=== PATIENT | female | born 2000 | race Caucasian/White ===

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

== ENCOUNTER → 2022-01-08 11:30 | Outpatient (CLI) | payer BC, OTHER, SELFPAY ==
[2022-01-08 14:05] LABS: HCG,Quantitative 1322 mIU/ml (0-5.42)
== END ==
PROVIDERS: Visit Provider Obstetrics & Gynecology
DX: N92.6 Irregular menstruation, unspecified (principal); Z32.00 Encounter for pregnancy test, result unknown
CPT/HCPCS: 36415; 84702

== ENCOUNTER → 2022-01-22 17:02 | Outpatient (CLI) | payer BC, OTHER, SELFPAY ==
[2022-01-25 05:18] LABS: Neisseria gonorrhoeae, NAA Negative (Negative)
== END ==
PROVIDERS: Visit Provider Obstetrics & Gynecology
DX: Z34.90 Encounter for supervision of normal pregnancy, unspecified, unspecified trimester (principal)
CPT/HCPCS: 87086; 87491; 87591

== ENCOUNTER → 2022-01-30 15:05 | Outpatient (CLI) | payer BC, OTHER, SELFPAY ==
[2022-01-30 16:35] LABS: Basophils % 0.4 % (0.1-2.0); Eosinophils % 0.3 % (0.1-12.0); Hematocrit 35.1 % (37.0-47.0); Hemoglobin 10.8 g/dL (12.2-16.2); Lymphocytes # 1.9 K/mm3 (0.7-4.5); Lymphocytes % 19.1 % (10-50); Mean Corpuscular HGB Conc 30.8 g/dL (31.8-35.4); Mean Corpuscular Hemoglobin 24.9 pg (27.0-31.2); Mean Corpuscular Volume 80.7 fl (81-99); Mean Platelet Volume 7.9 fl (7.4-10.4); Monocytes # 0.6 K/mm3 (0.1-1.0); Monocytes % 6.4 % (1.7-9.3); Neutrophils # 7.2 K/mm3 (1.8-7.8); Neutrophils % 73.8 % (37.0-80.0); Platelet Count 419 K/mm3 (142-424); Red Blood Count 4.34 M/mm3 (4.20-5.40); White Blood Count 9.8 K/mm3 (4.5-13.0)
[2022-02-01 10:13] LABS: HIV Screen 4th Generation wRfx Non Reactive (Non Reactive); Rapid Plasma Reagin Ab Titer Non Reactive (NonRea<1:1); Rubella Antibodies, IgG 1.98 index (Immune >0.99)
[2022-02-11 21:19] LABS: Hepatitis B Surface Antigen NEGATIVE; Hepatitis C Antibody <0.1
== END ==
PROVIDERS: PCP Internal Medicine Adolescent Medicine; Visit Provider Obstetrics & Gynecology
DX: Z34.90 Encounter for supervision of normal pregnancy, unspecified, unspecified trimester (principal)
CPT/HCPCS: 36415; 85025; 86593; 86703; 86762; 86850; 87340; 87380; G0432

== ENCOUNTER 2022-02-27 17:47 | Emergency (ER) | payer BC, OTHER, SELFPAY ==
[2022-02-27 18:47] VITALS: BP 143/64; PULSE 103; RESP 14; TEMP 36.9; O2SAT 98; BMI 36.3
--- NOTE | 2022-02-27 18:54 | XR_ITS ---
PROCEDURE INFORMATION: Exam: XR Right Foot Exam date and time: 02/27/2022 6:58 PM Age: 21 years old Clinical indication: Pain; Foot; Right; Additional info: Fall, foot pain TECHNIQUE: Imaging protocol: Radiologic exam of the Right foot. Views: 3 or more views. COMPARISON: CR XR ANKLE RT MIN 3V 02/27/2022 6:57 PM FINDINGS: Bones/joints: No acute fracture or dislocation. There are no lytic skeletal lesions seen. No significant arthritic deformities. Soft tissues: No radiopaque foreign bodies. No pathologic soft tissue calcification. Mild soft tissue swelling. IMPRESSION: No acute fracture or dislocation.
--- NOTE | 2022-02-27 18:54 | XR_ITS ---
PROCEDURE INFORMATION: Exam: XR Right Ankle Exam date and time: 02/27/2022 6:57 PM Age: 21 years old Clinical indication: Pain; Ankle; Right; Additional info: Fall, ankle pain TECHNIQUE: Imaging protocol: Radiologic exam of the Right ankle. Views: 3 or more views. COMPARISON: No relevant prior studies available. FINDINGS: Bones/joints: No acute fracture or dislocation. No significant arthritic deformities. There are no lytic skeletal lesions seen. Minimal ankle joint effusion pooling posteriorly. Soft tissues: No radiopaque foreign bodies. No pathologic soft tissue calcification. Slight soft tissue swelling. IMPRESSION: No acute fracture or dislocation.
--- NOTE | 2022-02-27 19:42 | HMH.EDGENADL ---
Discharge Plan Disposition Patient Disposition: Home, Self-Care Condition: Good Prescriptions Prescriptions: No Action PNV no.170-iron fum-folic acid 27 mg iron- 1 mg tablet 1 tab PO DAILY Referrals Follow up/Referrals: Pedro Hurtado MD [Primary Care Provider] - See instructions Clinical Impressions Clinical Impression: Sprain and strain of ankle Discharge ED Provider: Mychal Lara General Adult HPI General Chief complaint: Fall Stated complaint: AO 02/27 1600, Right foot pain, 11 weeks prego also Time Seen by Provider: 02/27/22 18:15 Mode of Arrival: Ambulatory Limitations: Physical Limitations Description of Symptoms (Recalled from ER Triage Doc. by RN): Pt reports ground level trip coming out of house this morning and fell, twisting right ankle with swelling and tenderness medial and lateral History of Present Illness HPI narrative: Patient is a 21-year-old female who presents with a right ankle injury. She says that she was walking out of her house this morning when she tripped and fell. She says that she was looking at her phone when she fell. She twisted her right ankle and had some difficulty walking on it afterwards but she was able to ambulate on it. She says that there is been some swelling to the right side of her ankle and it is little tender to palpation. She denies any other injuries. Did not hit her head. No loss conscious. Related Data Home Medications Medication Instructions Recorded Confirmed vitamins no.170-iron 1 tab PO DAILY Diet supplement 01/22/22 02/27/22 fumarate 27 mg-folic acid 1 mg tablet Allergies Allergy/AdvReac Type Severity Reaction Status Date / Time No Known Allergies Allergy Verified 02/22/22 08:35 [facility] Disclaimer: The information contained in this section may have been updated after the patient was seen, as this information can be updated by other users. Medical History Nausea and vomiting Vaginitis Family History Other Diabetes Social History Smoking Status: Never smoker alcohol intake: never current occupational status: student Travel in the last 8 weeks: None current occupation: [employer] employee ROS Obtained: Yes All systems reviewed & no additional complaints except as documented A 14 point review of system was obtained and otherwise negative except per HPI Physical Exam General General appearance: alert and in no apparent distress Head Head exam: atraumatic, normocephalic and normal inspection Eye Eye exam: Present normal appearance, PERRL and EOMI ENT ENT exam: Present normal exam, normal oropharynx, mucous membranes moist and normal external ear exam Neck Neck exam: Present normal inspection, full ROM and trachea midline; Absent meningismus or lymphadenopathy Chest Chest inspection: Present normal inspection and symmetric chest wall rise; Absent tenderness Respiratory Respiratory exam: Present normal lung sounds bilaterally; Absent respiratory distress Cardiovascular Cardiovascular exam: Present regular rate and normal rhythm Abdominal Exam Abdominal exam: Present soft; Absent distention, tenderness or guarding Extremities Exam Extremities exam: Present normal inspection, full ROM and normal capillary refill; Absent calf tenderness Expanded Lower Extremity Exam Right: Hip/Pelvis exam: Present normal inspection, tenderness and swelling; Absent full ROM, ecchymosis, deformity or dislocation Back Exam Back exam: Present normal inspection; Absent tenderness Neurological Exam Neurological exam: Present alert and oriented X3 Psychiatric Psychiatric exam: Present normal affect and normal mood Skin Skin exam: Present warm, dry, intact and normal color Lymphatic Lymphatic Findings: no adenopathy Medical Decision Making Medic
[2022-02-27 19:50] VITALS: BP 143/64; PULSE 103; RESP 18; TEMP 36.9; O2SAT 98
== END 2022-02-27 19:54 | disposition home or self-care (01) ==
LOC: UTC 17:51 → ER 17:54
PROVIDERS: Emergency Provider Student in an Organized Health Care Education/Training Program; PCP Internal Medicine Adolescent Medicine
DX: S93.401A Sprain of unspecified ligament of right ankle, initial encounter (principal); S96.911A Strain of unspecified muscle and tendon at ankle and foot level, right foot, initial encounter; W18.30XA Fall on same level, unspecified, initial encounter; Z83.3 Family history of diabetes mellitus
CPT/HCPCS: 73610; 73630; 99284

== ENCOUNTER → 2022-05-02 07:55 | Outpatient (CLI) | payer BC, OTHER, SELFPAY ==
--- NOTE | 2022-05-02 07:55 | US_ITS ---
FINAL REPORT CLINICAL HISTORY: 20 week anatomy scan use anatomy template FINDINGS: There is a single live intrauterine gestation. Presentation is cephalic. The cervix is closed and measures 3.20 cm. Placenta is posterior grade 1. movement is noted. heart rate is 156 beats per minute. No gross anomalies identified. Amniotic fluid is within normal limits. MEASUREMENTS: ULTRASOUND AGE: 20 weeks 5 days. GESTATION AGE: 20 weeks 6 days. ESTIMATED WEIGHT: 365 g GROWTH PERCENTILE: 32% % BPD: 4.98 cm corresponding to 21 weeks 1 day. OFD: 6.24 cm corresponding to 21 weeks 0 days. HC: 17.74 cm corresponding to 20 weeks 2 days. AC: 15.33 cm corresponding to 20 weeks 4 days. FL: 3.42 cm corresponding to 20 weeks 6 days. CEREBELLUM: 2.04 cm corresponding to 20 weeks 5 days. HUMERUS: 3.22 cm corresponding to 20 weeks 6 days. HC/AC: 1.16 CI: 80% FL/BPD: 69% FL/AC: 22% IMPRESSION: Single living IUP with an ultrasound age of 20 weeks 5 days. Reviewed, Interpreted and Dictated by Reji Edouard MD Transcribed by Daiys Petersen Authenticated and [facility]
== END ==
PROVIDERS: PCP Internal Medicine Adolescent Medicine; Visit Provider Obstetrics & Gynecology
DX: Z34.90 Encounter for supervision of normal pregnancy, unspecified, unspecified trimester (principal); Z3A.20 20 weeks gestation of pregnancy
CPT/HCPCS: 76811

== ENCOUNTER → 2022-05-31 09:05 | Outpatient (CLI) | payer BC, OTHER, SELFPAY ==
[2022-05-31 09:23] LABS: Basophils % 0.2 % (0.1-2.0); Eosinophils # 0.2 K/mm3 (0.0-0.4); Eosinophils % 1.1 % (0.1-12.0); Hematocrit 34.5 % (37.0-47.0); Lymphocytes # 3.2 K/mm3 (0.7-4.5); Lymphocytes % 20.5 % (10-50); Mean Corpuscular HGB Conc 31.7 g/dL (31.8-35.4); Mean Corpuscular Hemoglobin 25.8 pg (27.0-31.2); Mean Corpuscular Volume 81.3 fl (81-99); Mean Platelet Volume 8.2 fl (7.4-10.4); Monocytes # 0.8 K/mm3 (0.1-1.0); Monocytes % 5.3 % (1.7-9.3); Neutrophils # 11.3 K/mm3 (1.8-7.8); Neutrophils % 72.8 % (37.0-80.0); Platelet Count 333 K/mm3 (142-424); Red Blood Count 4.24 M/mm3 (4.20-5.40); Red Cell Distribution Width 18.2 % (11.5-17.5); White Blood Count 15.5 K/mm3 (4.8-10.8)
[2022-05-31 09:30] LABS: MANUAL DIFFERENTIAL MANUAL DIFFERENTIAL (MANUAL DIFF)
[2022-05-31 09:36] LABS: Glucose,Fasting 94 mg/dl (74-100)
[2022-05-31 10:17] LABS: Eosinophils % 1 % (0-3); Lymphocytes % 16 % (10-50); Monocytes % 9 % (2-9); Neutrophils % 74 % (42-76); Platelet Estimate Normal; RBC Morphology Normal; Total Cells Counted 100
[2022-05-31 10:47] LABS: Glucose 1 Hour 176 mg/dL (74-100)
== END ==
PROVIDERS: Visit Provider Obstetrics & Gynecology
DX: Z34.90 Encounter for supervision of normal pregnancy, unspecified, unspecified trimester (principal); Z3A.25 25 weeks gestation of pregnancy
CPT/HCPCS: 36415; 82951; 85007; 85025

== ENCOUNTER 2022-06-10 00:32 | Outpatient (CLI) | payer BC, OTHER, SELFPAY ==
[2022-06-10 00:36] VITALS: BP 160/70; PULSE 87; RESP 18; TEMP 36.6; O2SAT 96; BMI 35.6
[2022-06-10 01:05] LABS: Microscopic, Urine URINE MICROSCOPIC (MICROSCOPIC)
[2022-06-10 01:07] LABS: Appearance,Urine CLOUDY (Clear); Blood, Urine 2+ (Negative); Color,Urine DK YELLOW (Yellow); Glucose,Urine (UA) Negative (Negative); Ketones,Urine Negative (Negative); Leukocyte Esterase,Urine Negative (Negative); Nitrate,Urine Negative (Negative); Protein,Urine 3+ (Negative); Specific Gravity, Urine >= 1.030 (1.005-1.030); Urobilinogen,Urine 0.2 EU/dl (0.2)
[2022-06-10 01:18] LABS: Amphetamine/Metha Screen,Urine Negative ng/ml (<1000); Barbiturates Screen,Urine Negative ng/ml (<200)
[2022-06-10 01:19] LABS: Benzodiazepines Screen,Urine Negative ng/ml (<200)
[2022-06-10 01:20] LABS: Bilirubin,Urine 1+ (Negative); Cannabinoid Screen,Urine Negative ng/ml (<50); Cocaine Screen,Urine Negative ng/ml (<300)
[2022-06-10 01:21] LABS: Methadone Screen,Urine Negative ng/ml (<300); Opiate Screen,Urine Negative ng/ml (<300)
[2022-06-10 01:22] LABS: Phencyclidine Screen,Urine Negative ng/ml (<25)
[2022-06-10 01:25] LABS: Bacteria,Urine 2+ /lpf; Hyaline Casts,Urine Occasional #/lpf (0); Squamous Epithelial Cell,Urine 20-50 #/hpf (0-5)
[2022-06-10 02:00] VITALS: BP 146/88; PULSE 80
== END 2022-06-10 02:40 | disposition home or self-care (01) ==
LOC: OBOUT 00:33 → OB 00:35
PROVIDERS: Visit Provider Obstetrics & Gynecology
DX: O75.9 Complication of labor and delivery, unspecified (principal); Z37.1 Single stillbirth; O14.10 Severe pre-eclampsia, unspecified trimester; Z3A.26 26 weeks gestation of pregnancy; R10.9 Unspecified abdominal pain; R11.10 Vomiting, unspecified
CPT/HCPCS: 59025; 80305; 81001; 87086; 96360

== ENCOUNTER 2022-06-10 16:32 | Outpatient (CLI) | payer BC, OTHER, SELFPAY ==
[2022-06-10 16:38] VITALS: BMI 35.8
--- NOTE | 2022-06-10 17:21 | US_ITS ---
PROCEDURE INFORMATION: Exam: US ; Follow up Exam date and time: 06/10/2022 5:29 PM Age: 22 years old Clinical indication: Lmp or gestational age (in weeks): 26+3; Labor and delivery abnormalities; Other: No fhr; ; Additional info: No heart beat TECHNIQUE: Imaging protocol: Transabdominal ultrasound of the uterus, real time with image documentation. Follow-up (eg, re-evaluation of size by measuring standard growth parameters and amniotic fluid volume, re-evaluation of organ system(s) suspected or confirmed to be abnormal on a previous scan). COMPARISON: US OB /MATERNAL DETAIL 05/02/2022 8:18 AM FINDINGS: Gestation: demise. No heart tones or movement. position: Breech position. Placenta: Posterior placenta grade 1. BIOMETRY: Gestational age (AUA): Ultrasonographic age 25 weeks 5 days. Estimated weight: Estimated weight 1 lb 14 oz. Biparietal diameter (BPD): 25 week 1 day. Head circumference (HC): 25 weeks 4 days. Abdominal circumference (AC): 26 weeks 5 days. Femur length (FL): 25 weeks 0 days. MATERNAL: Cervix: Cervical length 3 cm. IMPRESSION: demise. No heart tones or movement. Twenty-five weeks 5 days
[2022-06-10 17:47] VITALS: BP 153/105; PULSE 90; RESP 18; TEMP 36.9; O2SAT 98; BMI 35.6
[2022-06-10 17:58] LABS: POC Glucose,Bedside 92 (70-110)
--- NOTE | 2022-06-10 19:24 | EXP.ACUTE.PN ---
Subjective *Date: 06/10/22 *Time: 19:44 Interval history: She is a 22-year-old 1 now para 0 at 26 and 3 weeks gestational age. She came in having some lower abdominal pain. The nurses could not find the heart tones so I did an ultrasound and could not see the baby's heart beating. I subsequently had our own vascular technologist sonographer come in with the hospital ultrasound and there is no evidence of heart rate activity. The fetus is in the breech presentation with a posterior placenta. The fluid around the baby looks normal and the growth appears congruent. Her blood pressures have remained elevated. She denies any headache. Her blood pressures remained elevated in the 140/100 range even after having given her Stadol for abdominal discomfort. We will give her a 4 g bolus of magnesium sulfate prior to her transfer. Medical Exam Vital signs and Labs for Last 24 Hours: Vital Signs Temp Pulse Resp BP Pulse Ox 06/10/22 17:47 98.4 F 90 18 153/105 H 98 Intake and Output 06/10/22 06/10/22 06/10/22 03:59 11:59 19:59 Other: Weight 222 lb 0.017 oz Patient Weight 06/11/22 11:59 Weight 222 lb 0.017 oz Laboratory Results - last 24 hr 06/10/22 17:34: POC Glucose 92 I & O for Labs for Last 24 Hours: Intake & Output 06/08/22 06/09/22 06/10/22 06/11/22 11:59 11:59 11:59 11:59 Weight 222 lb 0.017 oz Constitutional: Present no acute distress Head: Present atraumatic Respiratory: Present normal respiratory effort and able to speak in complete sentences; Absent accessory muscle use Cardiac: Present Reg Rate and Rhythm GI: Present soft; Absent distention or guarding Rectal (female): Present deferred (female): Present normal external exam Comment:: Her cervix is firm and long and closed. Extremities: Present normal inspection Assessment and Plan *Assessment and plan (1) Stillbirth with antepartum : Status: Acute Category: Medical Code(s): Z37.1 - Single stillbirth (2) Maternal obesity affecting , antepartum: Status: Acute Category: Medical Code(s): O99.210 - Obesity complicating , unspecified trimester (3) Breech presentation with problem: Status: Acute Qualifiers: Fetus number: single or unspecified fetus Qualified Code(s): O32.1XX0 - Maternal care for breech presentation, not applicable or unspecified Category: Medical Code(s): O32.1XX0 - Maternal care for breech presentation, not applicable or unspecified Plan I spoke with Dr. Eleanor Wheatley at [facility] and she will accept the patient in transfer. Since the patient is breech and only 26 weeks we were not comfortable delivering the patient here. Since the patient's blood pressure is elevated we will go ahead and give her 4 g bolus of magnesium sulfate prior to her transfer. She has an IV going. The patient will have appropriate blood work performed on her arrival at [facility].
--- NOTE | 2022-06-10 19:50 | EXP.HPDC ---
General Admission date:: Today Discharge date: 06/10/22 *Admission Date: 06/10/22 *Chief complaint: Abdominal pain, stillbirth [facility] Disclaimer: The information contained in this section may have been updated after the patient was seen, as this information can be updated by other users. Medical History Anxiety during Dizziness Maternal obesity affecting , antepartum Nausea and vomiting Vaginitis Surgical History History of thumb surgery Family History Other Diabetes Social History Smoking Status: Never smoker alcohol intake: never current occupational status: employed Travel in the last 8 weeks: None current occupation: [employer] employee Exam Data for Last 24 hours Vital signs and Labs for Last 24 Hours: Temp Pulse Resp BP Pulse Ox 98.4 F 90 18 153/105 H 98 06/10/22 17:47 06/10/22 17:47 06/10/22 17:47 06/10/22 17:47 06/10/22 17:47 Laboratory Results - last 24 hr 06/10/22 17:34: POC Glucose 92 I & O for Last 24 hours: Intake & Output 06/08/22 06/09/22 06/10/22 06/11/22 11:59 11:59 11:59 11:59 Weight 222 lb 0.017 oz Meds Home Medications and Allergies Home Medications Medication Instructions Recorded Confirmed Type hydroxyzine pamoate 25 mg capsule 25 mg PO BID PRN anxiety #20 caps 03/20/22 05/24/22 Rx (Vistaril) prenat.vits,kareem,mxt-[id number] 1 tab PO DAILY 04/05/22 05/24/22 History New Prescriptions to Start Prescriptions: Allergies Allergy/AdvReac Type Severity Reaction Status Date / Time No Known Allergies Allergy Verified 05/24/22 09:19 Results Data Completed and Pending Labs on day of discharge: Labs from last 24 hours 06/10/22 17:34 POC Glucose 92 DS: Diagnosis Discharge Diagnosis (1) Stillbirth with antepartum : Status: Acute (2) Maternal obesity affecting , antepartum: Status: Acute (3) Breech presentation with problem: Status: Acute Discharge Plan Disposition Patient Disposition: Home, Self-Care Patient Discharge Instructions Stand Alone Forms: Transfer Record Providers Primary Care Provider: Provider,Referral Attending Provider: Anthony Lewis
--- NOTE | 2022-06-10 19:52 | EXP.HPDC ---
General Discharge date: 06/10/22 *Admission Date: 06/10/22 *Chief complaint: Abdominal pain, stillbirth *History of present illness: She is a 22-year-old 1 para 0 at 26 and 3 weeks gestational age. She came in with lower abdominal pain today and heart tones were not detected. Ultrasound done by me as well as our plastic eye technician confirmed no heart rate activity. Fetus in the breech presentation with congruent growth, normal amniotic fluid. [facility] Disclaimer: The information contained in this section may have been updated after the patient was seen, as this information can be updated by other users. Medical History Anxiety during Dizziness Maternal obesity affecting , antepartum Nausea and vomiting Vaginitis Surgical History History of thumb surgery Family History Diabetes Social History Smoking Status: Never smoker alcohol intake: never current occupational status: employed Travel in the last 8 weeks: None current occupation: [employer] employee Review of Systems Review of Systems Review of systems:: pertinent systems reviewed and negative unless documented below Exam Data for Last 24 hours Vital signs and Labs for Last 24 Hours: Temp Pulse Resp BP Pulse Ox 98.4 F 90 18 153/105 H 98 06/10/22 17:47 06/10/22 17:47 06/10/22 17:47 06/10/22 17:47 06/10/22 17:47 Laboratory Results - last 24 hr 06/10/22 17:34: POC Glucose 92 I & O for Last 24 hours: Intake & Output 06/08/22 06/09/22 06/10/22 06/11/22 11:59 11:59 11:59 11:59 Weight 222 lb 0.017 oz Constitutional Constitutional: no acute distress *Routine HEENT Exam Head: Present normocephalic Eye: Present EOMI and PERRL ENT: Present mucous membranes moist *Routine Neck Exam Neck: Present supple; Absent lymphadenopathy *Routine Respiratory Exam Respiratory: Present normal respiratory effort *Routine Cardiovascular Exam Cardiovascular: Present RRR *Routine Abdominal Exam Abdominal: Present soft, normoactive bowel sounds and tenderness; Absent rebound or guarding Comments: Her uterus was tender but there was no guarding or rebound. *Routine Rectal Exam Rectal:: deferred *Routine Genitalia Exam Genitalia:: normal female Comment:: Her cervix was found to be firm and long and closed *Routine Extremities Exam Extremities: Absent cyanosis, clubbing or edema *Routine Skin Exam Skin: Present warm; Absent rash *Routine Neurological Exam Neurological: Present alert and oriented X3 Meds Home Medications and Allergies Home Medications Medication Instructions Recorded Confirmed Type hydroxyzine pamoate 25 mg capsule 25 mg PO BID PRN anxiety #20 caps 03/20/22 05/24/22 Rx (Vistaril) prenat.vits,kareem,dgg-ciqv-srgrn 1 tab PO DAILY 04/05/22 05/24/22 History New Prescriptions to Start Prescriptions: Allergies Allergy/AdvReac Type Severity Reaction Status Date / Time No Known Allergies Allergy Verified 05/24/22 09:19 Hospital Course Hospital Course Hospital Course: She was observed while we made arrangements for her transfer. We were uncomfortable delivering her here at our hospital since we do so few of these 26-week inductions. We were also not comfortable with the fact that she was in the breech presentation. Initially we had tried to make arrangements for her to go to [facility] but they are completely full. I spoke with Dr. Eleanor Wheatley at [facility] and she has agreed to accept the patient in transfer. We will plan to send her with an ambulance. Her blood pressure has been elevated here in the 140/100 range. At times in the 160/100 range. As result of that we are starting a magnesium sulfate bolus of 4 g. This will be given
[2022-06-10 19:53] VITALS: BP 146/82; PULSE 92; RESP 18; TEMP 36.9; O2SAT 98
[2022-06-10 19:58] VITALS: BP 136/72; PULSE 86; RESP 18; O2SAT 98
[2022-06-10 20:03] VITALS: BP 142/85; PULSE 77; RESP 17; O2SAT 98
[2022-06-10 20:08] VITALS: BP 151/72; PULSE 80; RESP 18; O2SAT 98
[2022-06-10 20:13] VITALS: BP 153/81; PULSE 80; RESP 16; O2SAT 98
== END 2022-06-10 20:43 | disposition short-term general hospital (02) ==
LOC: OBOUT 16:34 → OB 16:35
PROVIDERS: Referring Provider Obstetrics & Gynecology; Visit Provider Nurse Practitioner Obstetrics & Gynecology
DX: O26.892 Other specified pregnancy related conditions, second trimester (principal); Z3A.26 26 weeks gestation of pregnancy; Z37.1 Single stillbirth; O99.210 Obesity complicating pregnancy, unspecified trimester; O32.1XX0 Maternal care for breech presentation, not applicable or unspecified
CPT/HCPCS: 76816; 82962; J0595

== ENCOUNTER → 2022-07-11 08:03 | Outpatient (CLI) | payer BC, OTHER, SELFPAY ==
[2022-07-11 08:36] LABS: Basophils % 0.3 % (0.1-2.0); Eosinophils # 0.1 K/mm3 (0.0-0.4); Eosinophils % 1.1 % (0.1-12.0); Hematocrit 34.5 % (37.0-47.0); Hemoglobin 10.7 g/dL (12.2-16.2); Lymphocytes # 3.3 K/mm3 (0.7-4.5); Mean Corpuscular Hemoglobin 27.7 pg (27.0-31.2); Mean Corpuscular Volume 89.3 fl (81-99); Mean Platelet Volume 7.8 fl (7.4-10.4); Monocytes # 0.5 K/mm3 (0.1-1.0); Monocytes % 4.2 % (1.7-9.3); Neutrophils # 7.4 K/mm3 (1.8-7.8); Neutrophils % 65.4 % (37.0-80.0); Platelet Count 383 K/mm3 (142-424); Red Blood Count 3.86 M/mm3 (4.20-5.40); Red Cell Distribution Width 17.7 % (11.5-17.5); White Blood Count 11.3 K/mm3 (4.8-10.8)
[2022-07-11 09:28] LABS: Thyroid Stimulating Hormone 3.07 uIU/mL (0.465-4.68)
== END ==
PROVIDERS: Visit Provider Obstetrics & Gynecology
DX: R53.83 Other fatigue (principal)
CPT/HCPCS: 36415; 84443; 85025

== ENCOUNTER → 2022-09-25 08:06 | Outpatient (CLI) | payer BC, OTHER, SELFPAY ==
[2022-09-25 09:42] LABS: HCG,Quantitative 148 mIU/ml (0-5.42)
[2022-09-26 10:47] LABS: Progesterone 14.5 ng/mL (.)
== END ==
PROVIDERS: Visit Provider Obstetrics & Gynecology
DX: Z34.91 Encounter for supervision of normal pregnancy, unspecified, first trimester (principal)
CPT/HCPCS: 36415; 84144; 84702

== ENCOUNTER → 2022-09-27 07:41 | Outpatient (CLI) | payer BC, OTHER, SELFPAY ==
[2022-09-27 10:10] LABS: HCG,Quantitative 287 mIU/ml (0-5.42)
== END ==
PROVIDERS: Visit Provider Obstetrics & Gynecology
DX: Z34.91 Encounter for supervision of normal pregnancy, unspecified, first trimester (principal); Z3A.01 Less than 8 weeks gestation of pregnancy
CPT/HCPCS: 36415; 84702

== ENCOUNTER → 2022-10-17 12:00 | Outpatient (CLI) | payer BC, OTHER, SELFPAY | PROVIDERS: PCP Obstetrics & Gynecology; Visit Provider Obstetrics & Gynecology | DX: Z34.91 Encounter for supervision of normal pregnancy, unspecified, first trimester (principal); Z3A.01 Less than 8 weeks gestation of pregnancy | CPT/HCPCS: 87086 ==

== ENCOUNTER → 2022-10-22 15:20 | Outpatient (CLI) | payer BC, OTHER, SELFPAY ==
[2022-10-22 17:45] LABS: Basophils % 0.3 % (0.1-2.0); Eosinophils % 0.4 % (0.1-12.0); Hematocrit 33.5 % (37.0-47.0); Hemoglobin 10.3 g/dL (12.2-16.2); Lymphocytes # 2.1 K/mm3 (0.7-4.5); Mean Corpuscular HGB Conc 30.8 g/dL (31.8-35.4); Mean Corpuscular Hemoglobin 23.1 pg (27.0-31.2); Mean Corpuscular Volume 74.9 fl (81-99); Mean Platelet Volume 7.8 fl (7.4-10.4); Monocytes # 0.5 K/mm3 (0.1-1.0); Monocytes % 6.7 % (1.7-9.3); Neutrophils # 5.3 K/mm3 (1.8-7.8); Neutrophils % 66.5 % (37.0-80.0); Platelet Count 443 K/mm3 (142-424); Red Blood Count 4.47 M/mm3 (4.20-5.40); Red Cell Distribution Width 17.5 % (11.5-17.5); White Blood Count 7.9 K/mm3 (4.8-10.8)
[2022-10-24 09:15] LABS: Rubella Antibodies, IgG 1.89 index (Immune >0.99)
[2022-10-24 12:21] LABS: Rapid Plasma Reagin Ab Titer Non Reactive titer (NonRea<1:1)
[2022-10-28 12:45] LABS: HIV Screen 4th Generation wRfx Non Reactive; Hepatitis B Surface Antigen Negative; Hepatitis C Antibody Non Reactive
== END ==
PROVIDERS: PCP Obstetrics & Gynecology; Visit Provider Obstetrics & Gynecology
DX: Z34.91 Encounter for supervision of normal pregnancy, unspecified, first trimester (principal); Z3A.01 Less than 8 weeks gestation of pregnancy
CPT/HCPCS: 36415; 85025; 86593; 86703; 86762; 86850; 87340; 87380; G0432

== ENCOUNTER 2023-01-15 21:19 | Outpatient (CLI) | payer BC, OTHER, SELFPAY ==
[2023-01-15 21:23] VITALS: BMI 35.3
[2023-01-15 21:43] LABS: Microscopic, Urine URINE MICROSCOPIC (MICROSCOPIC)
[2023-01-15 21:50] VITALS: BP 126/72; PULSE 101; RESP 17; TEMP 36.7; O2SAT 97; BMI 35.3
[2023-01-15 22:04] LABS: Appearance,Urine CLEAR (Clear); Blood, Urine Negative (Negative); Color,Urine YELLOW (Yellow); Glucose,Urine (UA) Negative (Negative); Ketones,Urine Negative (Negative); Leukocyte Esterase,Urine Negative (Negative); Nitrate,Urine Negative (Negative); Protein,Urine Negative (Negative); Specific Gravity, Urine >= 1.030 (1.005-1.030); Urobilinogen,Urine 0.2 EU/dl (0.2)
[2023-01-15 22:05] LABS: Bilirubin,Urine 1+ (Negative)
[2023-01-15 22:07] LABS: Bacteria,Urine Trace /lpf; Squamous Epithelial Cell,Urine Occasional #/hpf (0-5); WBC,Urine Occasional #/hpf (0-3)
[2023-01-15 22:16] LABS: Barbiturates Screen,Urine Negative ng/ml (<200); Benzodiazepines Screen,Urine Negative ng/ml (<200)
[2023-01-15 22:17] LABS: Amphetamine/Metha Screen,Urine Negative ng/ml (<1000)
[2023-01-15 22:18] LABS: Cannabinoid Screen,Urine Negative ng/ml (<50); Methadone Screen,Urine Negative ng/ml (<300)
[2023-01-15 22:19] LABS: Cocaine Screen,Urine Negative ng/ml (<300); Opiate Screen,Urine Negative ng/ml (<300)
[2023-01-15 22:20] LABS: Phencyclidine Screen,Urine Negative ng/ml (<25)
== END 2023-01-16 01:02 | disposition home or self-care (01) ==
LOC: OBOUT 21:20 → OB 21:21
PROVIDERS: PCP Internal Medicine Adolescent Medicine; Visit Provider Obstetrics & Gynecology
DX: O26.892 Other specified pregnancy related conditions, second trimester (principal); Z3A.20 20 weeks gestation of pregnancy; R10.32 Left lower quadrant pain
CPT/HCPCS: 76811; 80305; 81001; 96365; G0463

== ENCOUNTER 2023-02-21 14:41 | Outpatient (CLI) | payer BC, SELFPAY ==
[2023-02-21 15:15] VITALS: BMI 37.5
[2023-02-21 15:19] VITALS: BP 117/77; PULSE 109; RESP 18; TEMP 36.9; O2SAT 97; BMI 37.5
[2023-02-21 16:12] LABS: Microscopic, Urine URINE MICROSCOPIC (MICROSCOPIC)
[2023-02-21 16:17] LABS: Appearance,Urine CLEAR (Clear); Bilirubin,Urine Negative (Negative); Blood, Urine Negative (Negative); Color,Urine YELLOW (Yellow); Glucose,Urine (UA) Negative (Negative); Ketones,Urine TRACE (Negative); Leukocyte Esterase,Urine Negative (Negative); Nitrate,Urine Negative (Negative); Protein,Urine Negative (Negative); Specific Gravity, Urine 1.025 (1.005-1.030); Urobilinogen,Urine 0.2 EU/dl (0.2)
[2023-02-21 16:34] LABS: Bacteria,Urine Trace /lpf
[2023-02-21 16:40] LABS: Amphetamine/Metha Screen,Urine Negative ng/ml (<1000)
[2023-02-21 16:41] LABS: Barbiturates Screen,Urine Negative ng/ml (<200)
[2023-02-21 16:43] LABS: Benzodiazepines Screen,Urine Negative ng/ml (<200)
[2023-02-21 16:44] LABS: Cannabinoid Screen,Urine Negative ng/ml (<50); Cocaine Screen,Urine Negative ng/ml (<300)
[2023-02-21 16:45] LABS: Methadone Screen,Urine Negative ng/ml (<300); Opiate Screen,Urine Negative ng/ml (<300)
[2023-02-21 16:46] LABS: Phencyclidine Screen,Urine Negative ng/ml (<25)
== END 2023-02-21 16:29 | disposition home or self-care (01) ==
LOC: OBOUT 14:43 → OB 14:46
PROVIDERS: PCP Internal Medicine Adolescent Medicine; Referring Provider Obstetrics & Gynecology; Visit Provider Nurse Practitioner Obstetrics & Gynecology
DX: O26.892 Other specified pregnancy related conditions, second trimester (principal); Z3A.25 25 weeks gestation of pregnancy; W19.XXXA Unspecified fall, initial encounter
CPT/HCPCS: 59025; 80307; 81001; G0463

== ENCOUNTER 2023-02-26 09:17 | Outpatient (CLI) | payer BC, SELFPAY ==
[2023-02-26 09:43] LABS: Basophils % 0.4 % (0.1-2.0); Eosinophils # 0.1 K/mm3 (0.0-0.4); Eosinophils % 0.6 % (0.1-12.0); Hematocrit 35.5 % (37.0-47.0); Hemoglobin 11.9 g/dL (12.2-16.2); Lymphocytes # 2.5 K/mm3 (0.7-4.5); Mean Corpuscular HGB Conc 33.4 g/dL (31.8-35.4); Mean Corpuscular Hemoglobin 29.8 pg (27.0-31.2); Mean Corpuscular Volume 89.1 fl (81-99); Mean Platelet Volume 8.4 fl (7.4-10.4); Monocytes # 0.5 K/mm3 (0.1-1.0); Monocytes % 5.1 % (1.7-9.3); Neutrophils # 7.1 K/mm3 (1.8-7.8); Neutrophils % 69.9 % (37.0-80.0); Platelet Count 271 K/mm3 (142-424); Red Blood Count 3.98 M/mm3 (4.20-5.40); Red Cell Distribution Width 17.5 % (11.5-17.5); White Blood Count 10.2 K/mm3 (4.8-10.8)
[2023-02-26 10:51] LABS: Glucose,Fasting 98 mg/dl (74-100)
[2023-02-26 11:33] LABS: Glucose 1 Hour 128 mg/dL (74-100)
== END 2023-02-26 23:59 ==
PROVIDERS: PCP Internal Medicine Adolescent Medicine; Visit Provider Obstetrics & Gynecology
DX: Z34.92 Encounter for supervision of normal pregnancy, unspecified, second trimester (principal); Z3A.26 26 weeks gestation of pregnancy
CPT/HCPCS: 36415; 82951; 85025

== ENCOUNTER 2023-03-12 09:50 | Outpatient (CLI) | payer BC, SELFPAY ==
[2023-03-12 09:50] VITALS: BP 116/60; PULSE 75; RESP 16; TEMP 36.8; O2SAT 100; BMI 36.6
--- OUTSIDE RECORDS SUMMARY | 2023-03-12 09:53 | XMS_ITS | Patient Health Record ---
Author Name Unknown Organization [facility] Address [address] [place] [address] Care Team Providers Care Transformation Specialist Name Role Phone Pedro Hurtado Primary Care Provider ALLERGIES No Known Allergies REASON FOR REFERRAL No Information MEDICATIONS Medication SIG (Take, Route, Fr equency, Duration) Notes Start Date End Date Status amoxicillin 875 mg 1 tab(s) orally ever y 12 hours for 10 day(s) 02/14/2021 Active Ciprodex 0.3%-0.1% 4 gtt in each affect ed ear 2 times a day for 7 day(s) 02/14/2021 Active Nexplanon 68 mg 1 ea subcutaneously once for 1 dose(s) Active SOCIAL HISTORY Sex Assigned At : Social History Observation Description Sex Assigned At Unknown PROBLEMS Problem Type ICD Code Onset Dates Problem Status W/U Status Risk SNOMED Code Notes Problem Irritable bowel syndrome with diarrhea (K58.0) Active confirmed 617020254 Problem Anxiety (F41.9) Active confirmed 628645 02 Problem Obesity (BMI 30-39.9) (E66.9) Active confirmed 683939344 Problem Attention deficit disorder (ADD) in adult (F98.8) Active confirmed 360871807 PLAN OF TREATMENT Pending Test Test Name Order Date Urinalysis 03/08/2015 EKG : In House 01/13/2018 Insurance Providers Payer Name Payer Address Payer Phone Subscriber Number Group Number Insured Name Patient Relationship to Insured Coverage Start Date Coverage End Date [employer] [place] [employer] [address] [place] [address] [id number] Salima Watts Self - patient is the insured [facility] [address] [address] [place] [phone] [id number] Salima Watts Self - patient is the insured MEDICAL (GENERAL) HISTORY Medical History History ICD Code Seasonal allergies ADHD Surgical History Surgery Date(Month/Year)
[2023-03-12 10:35] VITALS: BMI 36.6
[2023-03-12 10:48] LABS: Basophils # 0.1 K/mm3 (0-0.2); Basophils % 0.5 % (0.1-2.0); Eosinophils # 0.1 K/mm3 (0.0-0.4); Eosinophils % 0.4 % (0.1-12.0); Hematocrit 35.5 % (37.0-47.0); Hemoglobin 12.1 g/dL (12.2-16.2); Lymphocytes # 3.6 K/mm3 (0.7-4.5); Lymphocytes % 27.8 % (10-50); Mean Corpuscular Hemoglobin 30.5 pg (27.0-31.2); Mean Corpuscular Volume 89.5 fl (81-99); Mean Platelet Volume 8.2 fl (7.4-10.4); Monocytes # 0.8 K/mm3 (0.1-1.0); Monocytes % 5.8 % (1.7-9.3); Neutrophils # 8.4 K/mm3 (1.8-7.8); Neutrophils % 65.5 % (37.0-80.0); Platelet Count 302 K/mm3 (142-424); Red Blood Count 3.97 M/mm3 (4.20-5.40); Red Cell Distribution Width 16.9 % (11.5-17.5); White Blood Count 12.9 K/mm3 (4.8-10.8)
[2023-03-12 11:07] LABS: Chloride 100 mmol/L (98-107); Potassium 3.6 mmoL/L (3.5-5.1); Sodium 134 mmol/L (136-145)
[2023-03-12 11:09] LABS: Alanine Aminotransferase 18 U/L (12-78); Aspartate Amino Transferase 27 U/L (14-36); Blood Urea Nitrogen 6 mg/dl (7-17); Creatinine Clearance Estimated 350 mL/min (50-200); Estimated Glomerular Filt Rate 201 ml/min (>60); GFR (African American) 244 ML/MIN (>60)
[2023-03-12 11:10] LABS: Albumin Level 3.8 g/dl (3.5-5.0); Alkaline Phosphatase 106 U/L (38-126); Anion Gap 11.6 mEq/L (5-15); Bilirubin,Total 0.4 mg/dl (0.2-1.3); Calcium 9.5 mg/dl (8.4-10.2); Carbon Dioxide 26 mmol/L (22.0-30.0); Globulin 3.9 g/dL (1.3-3.2); Glucose 94 mg/dl (74-100); Total Protein,Serum 7.7 g/dl (6.3-8.2)
--- NOTE | 2023-03-12 11:32 | EXP.ACUTE.PN ---
Subjective *Date: 03/12/23 *Time: 11:32 Interval history: She is a 22-year-old 2 para 1 at 26 weeks gestational age. She was having a nonstress test in the office and started having vomiting and nausea. She was feeling lightheaded. Her blood pressure was also slightly elevated so Dr. Mccarthy sent her to labor and delivery. She has received a liter of fluid in labor and delivery. The nonstress test is reactive. Blood work is normal. She feels better. We will plan to send her home. Medical Exam Vital signs and Labs for Last 24 Hours: Vital Signs Temp Pulse Resp BP Pulse Ox O2 Del Method 03/12/23 09:50 98.2 F 75 16 116/60 100 Room Air Intake and Output 03/11/23 03/12/23 03/12/23 19:59 03:59 11:59 Other: Weight 220 lb Patient Weight 03/12/23 11:59 Weight 220 lb Laboratory Results - last 24 hr 03/12/23 10:30: WBC 12.9 H, RBC 3.97 L, Hgb 12.1 L, Hct 35.5 L, MCV 89.5, MCH 30.5, MCHC 34.0, RDW 16.9, Plt Count 302, MPV 8.2, Neut % (Auto) 65.5, Lymph % (Auto) 27.8, [place] % (Auto) 5.8, Eos % (Auto) 0.4, Baso % (Auto) 0.5, Neut # (Auto) 8.4 H, Lymph # (Auto) 3.6, [place] # (Auto) 0.8, Eos # (Auto) 0.1, Baso # (Auto) 0.1, Sodium 134 L, Potassium 3.6, Chloride 100, Carbon Dioxide 26, Anion Gap 11.6, BUN 6 L, Creatinine 0.40 L, Estimated Creat Clear 350 H, Estimated GFR 201, Est GFR ( Amer) 244, Glucose 94, Calcium 9.5, Total Bilirubin 0.4, AST 27, ALT 18, Alkaline Phosphatase 106, Total Protein 7.7, Albumin 3.8, Globulin 3.9 H, Albumin/Globulin Ratio 1.0 L I & O for Labs for Last 24 Hours: Intake & Output 03/09/23 03/10/23 03/11/23 03/12/23 11:59 11:59 11:59 11:59 Weight 220 lb Head: Present atraumatic and normocephalic Neck: Present normal inspection Respiratory: Present normal respiratory effort; Absent accessory muscle use Assessment and Plan *Assessment and plan (1) History of pre-eclampsia in prior , currently : Status: Acute Category: Medical Code(s): O09.299 - Supervision of with other poor reproductive or obstetric history, unspecified trimester (2) History of stillbirth in currently patient: Problem Comment: at 26 weeks Status: Acute Qualifiers: Trimester: first trimester Qualified Code(s): O09.291 - Supervision of with other poor reproductive or obstetric history, first trimester Category: Medical Code(s): O09.299 - Supervision of with other poor reproductive or obstetric history, unspecified trimester (3) Vomiting affecting , antepartum: Status: Acute Category: Medical Code(s): O21.9 - Vomiting of , unspecified Plan She had a PIH workup which was negative. She received Zofran as well as IV fluids and she is feeling much better. Will plan to send her home. She has an appointment next week with Dr. Mccarthy.
[2023-03-12 11:36] LABS: Uric Acid 3.2 mg/dl (2.5-6.2)
[2023-03-12 11:40] LABS: Microscopic, Urine URINE MICROSCOPIC (MICROSCOPIC)
[2023-03-12 11:42] LABS: Appearance,Urine CLEAR (Clear); Bilirubin,Urine Negative (Negative); Blood, Urine Negative (Negative); Color,Urine YELLOW (Yellow); Glucose,Urine (UA) Negative (Negative); Ketones,Urine Negative (Negative); Leukocyte Esterase,Urine TRACE (Negative); Nitrate,Urine Negative (Negative); Protein,Urine Negative (Negative); Urobilinogen,Urine 0.2 EU/dl (0.2)
[2023-03-12 11:51] LABS: Bacteria,Urine Trace /lpf; Squamous Epithelial Cell,Urine Occasional #/hpf (0-5); WBC,Urine Occasional #/hpf (0-3)
[2023-03-12 11:52] LABS: Creatinine,Urine Random 137 mg/dL (Not Estab.)
[2023-03-12 11:57] LABS: Microalbumin/Creatinine Ratio 82.7
[2023-03-12 11:58] LABS: Amphetamine/Metha Screen,Urine Negative ng/ml (<1000); Barbiturates Screen,Urine Negative ng/ml (<200)
[2023-03-12 11:59] LABS: Benzodiazepines Screen,Urine Negative ng/ml (<200)
[2023-03-12 12:00] LABS: Cannabinoid Screen,Urine Negative ng/ml (<50); Cocaine Screen,Urine Negative ng/ml (<300)
[2023-03-12 12:01] LABS: Methadone Screen,Urine Negative ng/ml (<300)
[2023-03-12 12:02] LABS: Opiate Screen,Urine Negative ng/ml (<300); Phencyclidine Screen,Urine Negative ng/ml (<25)
== END 2023-03-12 12:01 | disposition home or self-care (01) ==
LOC: OBOUT 09:51 → OB 09:53
PROVIDERS: PCP Internal Medicine Adolescent Medicine; Referring Provider Obstetrics & Gynecology; Visit Provider Nurse Practitioner Obstetrics & Gynecology
DX: O09.293 Supervision of pregnancy with other poor reproductive or obstetric history, third trimester (principal); O21.9 Vomiting of pregnancy, unspecified; E86.0 Dehydration; Z3A.28 28 weeks gestation of pregnancy
CPT/HCPCS: 59025; 80053; 80307; 81001; 82043; 82570; 84550; 85025; 96365; G0463

== ENCOUNTER 2023-04-10 09:53 | Outpatient (CLI) | payer BC, SELFPAY ==
--- NOTE | 2023-04-10 10:02 | US_ITS ---
PROCEDURE: US OB BIOPHYSICAL PROFILE CLINICAL INDICATION: hx. of still , MARK ANTHONY COMPARISON: US US OB /MATERNAL DETAIL from 01/15/2023 FINDINGS: Transabdominal sonographic images of the uterus were obtained. From her established due date she is 32weeks 1day. The following parameters are obtained: Viable Fetus in the cephalic presentation with a posterior placenta grade 2. Average ultrasound age is 32weeks 6days Estimated weight 1,995g, 4 lb 6 oz Cervix measures 3.1 cm. Measurements: heart Rate = 129bpm BPD = 32weeks 6days, 60 percentile HC = 33weeks 4days, 50 percentile AC = 32weeks 3days, 55 percentile FL = 32weeks 4days, 47 percentile HC/AC is 1.07 FL/BPD is 0.77 FL/AC is 0.22 52 percentile Amniotic fluid index: 16.67cm, MVP 5.56 cm. Qualitative AFV:2 Breathing movements: 2 Gross Body Movements: 2 Tone: 2 Biophysical profile score: 8 No obvious anomalies evident.Kidneys, bladder, stomach, four-chamber heart, three-vessel cord appear normal. IMPRESSION: 1. Viable fetus in the cephalic presentation with a posterior placenta grade 2. 2. The fluid is within normal limits with an amniotic fluid index of 16.67 cm, MVP 5.56 cm. 3. Biophysical profile is 8/8 with good breathing movement and movement seen. 4. Limited anatomical scan appears normal. 5. There has been good interval growth with the fetus currently 52nd percentile. Dictated by: Anthony Lewis MD 04/10/2023 13:44 Anthony Lewis MD in [facility] 04/10/2023 13:44
== END 2023-04-10 23:59 ==
LOC: RAD 09:53
PROVIDERS: PCP Internal Medicine Adolescent Medicine; Visit Provider Obstetrics & Gynecology
DX: O28.8 Other abnormal findings on antenatal screening of mother (principal); Z87.59 Personal history of other complications of pregnancy, childbirth and the puerperium
CPT/HCPCS: 76816; 76819

== ENCOUNTER 2023-04-17 09:44 | Outpatient (CLI) | payer BC, SELFPAY ==
[2023-04-17 10:16] VITALS: BP 127/65; PULSE 84; RESP 16; TEMP 36.6; O2SAT 98; BMI 38.0
== END 2023-04-17 10:34 | disposition home or self-care (01) ==
LOC: OBOUT 09:46 → OB 09:46
PROVIDERS: PCP Internal Medicine Adolescent Medicine; Visit Provider Nurse Practitioner Obstetrics & Gynecology
DX: O26.893 Other specified pregnancy related conditions, third trimester (principal); Z3A.33 33 weeks gestation of pregnancy
CPT/HCPCS: 59025; G0463

== ENCOUNTER 2023-04-19 12:09 | Outpatient (CLI) | payer BC, SELFPAY ==
[2023-04-19 12:45] VITALS: BMI 36.8
[2023-04-19 12:58] LABS: Microscopic, Urine URINE MICROSCOPIC (MICROSCOPIC)
[2023-04-19 13:01] LABS: Appearance,Urine SL CLOUDY (Clear); Bilirubin,Urine Negative (Negative); Blood, Urine Negative (Negative); Color,Urine YELLOW (Yellow); Glucose,Urine (UA) Negative (Negative); Ketones,Urine Negative (Negative); Leukocyte Esterase,Urine 1+ (Negative); Nitrate,Urine Negative (Negative); PH,Urine 6.5 (5.0-8.5); Protein,Urine Negative (Negative); Urobilinogen,Urine 0.2 EU/dl (0.2)
[2023-04-19 13:13] LABS: Amphetamine/Metha Screen,Urine Negative ng/ml (<1000)
[2023-04-19 13:14] LABS: Barbiturates Screen,Urine Negative ng/ml (<200)
[2023-04-19 13:15] LABS: Cannabinoid Screen,Urine Negative ng/ml (<50)
[2023-04-19 13:16] LABS: Cocaine Screen,Urine Negative ng/ml (<300)
[2023-04-19 13:17] LABS: Methadone Screen,Urine Negative ng/ml (<300); Opiate Screen,Urine Negative ng/ml (<300)
[2023-04-19 13:18] LABS: Phencyclidine Screen,Urine Negative ng/ml (<25)
[2023-04-19 13:20] LABS: Benzodiazepines Screen,Urine Negative ng/ml (<200)
[2023-04-19 13:29] LABS: Bacteria,Urine 4+ /lpf; Mucus,Urine Trace /lpf
[2023-04-19 13:54] VITALS: BP 114/75; PULSE 96; RESP 18; TEMP 36.7; O2SAT 97; BMI 36.8
== END 2023-04-19 13:19 | disposition home or self-care (01) ==
LOC: OBOUT 12:11 → OB 12:12
PROVIDERS: PCP Internal Medicine Adolescent Medicine; Visit Provider Nurse Practitioner Obstetrics & Gynecology
DX: B96.89 Other specified bacterial agents as the cause of diseases classified elsewhere (principal); O26.893 Other specified pregnancy related conditions, third trimester; Z3A.33 33 weeks gestation of pregnancy
CPT/HCPCS: 80307; 81001; 87086; G0463

== ENCOUNTER 2023-04-22 16:58 | Outpatient (CLI) | payer BC, SELFPAY ==
[2023-04-22 17:20] VITALS: BMI 36.9
[2023-04-22 17:24] VITALS: BP 132/71; PULSE 94; RESP 18; TEMP 36.7; O2SAT 96; BMI 36.9
[2023-04-22 17:58] LABS: Microscopic, Urine URINE MICROSCOPIC (MICROSCOPIC)
[2023-04-22 18:02] LABS: Appearance,Urine CLEAR (Clear); Bilirubin,Urine Negative (Negative); Blood, Urine Negative (Negative); Color,Urine YELLOW (Yellow); Glucose,Urine (UA) Negative (Negative); Ketones,Urine Negative (Negative); Leukocyte Esterase,Urine TRACE (Negative); Nitrate,Urine Negative (Negative); Protein,Urine Negative (Negative); Urobilinogen,Urine 0.2 EU/dl (0.2)
[2023-04-22 18:13] LABS: Amphetamine/Metha Screen,Urine Negative ng/ml (<1000)
[2023-04-22 18:14] LABS: Barbiturates Screen,Urine Negative ng/ml (<200); Benzodiazepines Screen,Urine Negative ng/ml (<200)
[2023-04-22 18:15] LABS: Cannabinoid Screen,Urine Negative ng/ml (<50); Cocaine Screen,Urine Negative ng/ml (<300)
[2023-04-22 18:16] LABS: Methadone Screen,Urine Negative ng/ml (<300)
[2023-04-22 18:17] LABS: Opiate Screen,Urine Negative ng/ml (<300); Phencyclidine Screen,Urine Negative ng/ml (<25)
[2023-04-22 18:21] LABS: Creatinine,Urine Random 39 mg/dL (Not Estab.)
[2023-04-22 18:31] LABS: Bacteria,Urine Trace /lpf; WBC,Urine Occasional #/hpf (0-3)
[2023-04-22 18:36] LABS: Chloride 104 mmol/L (98-107); Potassium 3.8 mmoL/L (3.5-5.1); Sodium 134 mmol/L (136-145)
[2023-04-22 18:38] LABS: Blood Urea Nitrogen 3 mg/dl (7-17); Creatinine Clearance Estimated 354 mL/min (50-200); Estimated Glomerular Filt Rate 201 ml/min (>60); GFR (African American) 244 ML/MIN (>60)
[2023-04-22 18:39] LABS: Alanine Aminotransferase 16 U/L (12-78); Albumin Level 3.5 g/dl (3.5-5.0); Alkaline Phosphatase 140 U/L (38-126); Anion Gap 6.8 mEq/L (5-15); Aspartate Amino Transferase 22 U/L (14-36); Bilirubin,Total 0.3 mg/dl (0.2-1.3); Calcium 9.2 mg/dl (8.4-10.2); Carbon Dioxide 27 mmol/L (22.0-30.0); Globulin 3.4 g/dL (1.3-3.2); Glucose 85 mg/dl (74-100); Total Protein,Serum 6.9 g/dl (6.3-8.2)
[2023-04-22 18:58] LABS: Uric Acid 3.2 mg/dl (2.5-6.2)
== END 2023-04-22 19:24 | disposition home or self-care (01) ==
LOC: OBOUT 17:00 → OB 17:01
PROVIDERS: PCP Internal Medicine Adolescent Medicine; Visit Provider Obstetrics & Gynecology
DX: O26.893 Other specified pregnancy related conditions, third trimester (principal); Z3A.33 33 weeks gestation of pregnancy
CPT/HCPCS: 36415; 80053; 80307; 81001; 82570; 84155; 84550; G0463

== ENCOUNTER 2023-04-24 09:42 | Outpatient (CLI) | payer BC, SELFPAY ==
[2023-04-24 10:07] VITALS: BMI 36.9
[2023-04-24 10:17] LABS: Microscopic, Urine URINE MICROSCOPIC (MICROSCOPIC)
[2023-04-24 10:31] VITALS: BP 110/68; PULSE 93; RESP 18; TEMP 36.6; O2SAT 100; BMI 36.9
[2023-04-24 10:44] LABS: Appearance,Urine CLEAR (Clear); Bilirubin,Urine Negative (Negative); Blood, Urine Negative (Negative); Color,Urine YELLOW (Yellow); Glucose,Urine (UA) Negative (Negative); Ketones,Urine Negative (Negative); Leukocyte Esterase,Urine 2+ (Negative); Nitrate,Urine Negative (Negative); Protein,Urine Negative (Negative); Specific Gravity, Urine 1.015 (1.005-1.030); Urobilinogen,Urine 0.2 EU/dl (0.2)
[2023-04-24 10:47] LABS: Amphetamine/Metha Screen,Urine Negative ng/ml (<1000)
[2023-04-24 10:48] LABS: Barbiturates Screen,Urine Positive ng/ml (<200); Cannabinoid Screen,Urine Negative ng/ml (<50)
[2023-04-24 10:49] LABS: Cocaine Screen,Urine Negative ng/ml (<300); Methadone Screen,Urine Negative ng/ml (<300)
[2023-04-24 10:50] LABS: Opiate Screen,Urine Negative ng/ml (<300)
[2023-04-24 10:51] LABS: Phencyclidine Screen,Urine Negative ng/ml (<25)
[2023-04-24 10:56] LABS: Benzodiazepines Screen,Urine Negative ng/ml (<200)
[2023-04-24 11:03] LABS: Amorphous Sediment,Urine Trace /lpf; Bacteria,Urine Trace /lpf
== END 2023-04-24 10:45 | disposition home or self-care (01) ==
LOC: OBOUT 09:46 → OB 09:46
PROVIDERS: PCP Internal Medicine Adolescent Medicine; Visit Provider Obstetrics & Gynecology
DX: O26.893 Other specified pregnancy related conditions, third trimester (principal); Z3A.34 34 weeks gestation of pregnancy
CPT/HCPCS: 80307; 81001; 87086; G0463

== ENCOUNTER 2023-04-25 21:15 | Outpatient (CLI) | payer BC, SELFPAY ==
[2023-04-25 21:18] VITALS: BMI 36.9
[2023-04-25 21:28] VITALS: BMI 36.9
[2023-04-25 21:30] VITALS: BP 143/80; PULSE 92; RESP 17; TEMP 36.6; O2SAT 98
[2023-04-25 22:20] LABS: Basophils # 0.1 K/mm3 (0-0.2); Basophils % 0.4 % (0.1-2.0); Eosinophils # 0.1 K/mm3 (0.0-0.4); Eosinophils % 0.5 % (0.1-12.0); Hematocrit 35.9 % (37.0-47.0); Hemoglobin 11.9 g/dL (12.2-16.2); Lymphocytes # 2.6 K/mm3 (0.7-4.5); Lymphocytes % 21.9 % (10-50); Mean Corpuscular Volume 96.8 fl (81-99); Mean Platelet Volume 9.3 fl (7.4-10.4); Monocytes # 0.7 K/mm3 (0.1-1.0); Monocytes % 6.2 % (1.7-9.3); Neutrophils # 8.4 K/mm3 (1.8-7.8); Platelet Count 236 K/mm3 (142-424); Red Blood Count 3.71 M/mm3 (4.20-5.40); Red Cell Distribution Width 15.9 % (11.5-17.5); White Blood Count 11.8 K/mm3 (4.8-10.8)
[2023-04-25 22:23] LABS: Chloride 104 mmol/L (98-107); Potassium 3.7 mmoL/L (3.5-5.1); Sodium 135 mmol/L (136-145)
[2023-04-25 22:26] LABS: Microscopic, Urine URINE MICROSCOPIC (MICROSCOPIC)
[2023-04-25 22:26] LABS: Alanine Aminotransferase 16 U/L (12-78); Albumin Level 3.6 g/dl (3.5-5.0); Albumin/Globulin Ratio 1.1 (1.1-1.8); Alkaline Phosphatase 140 U/L (38-126); Anion Gap 6.7 mEq/L (5-15); Aspartate Amino Transferase 23 U/L (14-36); Bilirubin,Total 0.2 mg/dl (0.2-1.3); Blood Urea Nitrogen 6 mg/dl (7-17); Carbon Dioxide 28 mmol/L (22.0-30.0); Creatinine Clearance Estimated 283 mL/min (50-200); Estimated Glomerular Filt Rate 156 ml/min (>60); GFR (African American) 188 ML/MIN (>60); Globulin 3.3 g/dL (1.3-3.2); Total Protein,Serum 6.9 g/dl (6.3-8.2)
[2023-04-25 22:27] LABS: Calcium 9.8 mg/dl (8.4-10.2); Glucose 101 mg/dl (74-100)
[2023-04-25 22:29] LABS: Appearance,Urine CLEAR (Clear); Bilirubin,Urine Negative (Negative); Blood, Urine Negative (Negative); Color,Urine YELLOW (Yellow); Glucose,Urine (UA) Negative (Negative); Ketones,Urine Negative (Negative); Leukocyte Esterase,Urine Negative (Negative); Nitrate,Urine Negative (Negative); Protein,Urine Negative (Negative); Specific Gravity, Urine 1.015 (1.005-1.030); Urobilinogen,Urine 0.2 EU/dl (0.2)
[2023-04-25 22:43] LABS: Benzodiazepines Screen,Urine Negative ng/ml (<200)
[2023-04-25 22:44] LABS: Amphetamine/Metha Screen,Urine Negative ng/ml (<1000); Barbiturates Screen,Urine Positive ng/ml (<200)
[2023-04-25 22:45] LABS: Methadone Screen,Urine Negative ng/ml (<300)
[2023-04-25 22:46] LABS: Cannabinoid Screen,Urine Negative ng/ml (<50); Cocaine Screen,Urine Negative ng/ml (<300)
[2023-04-25 22:47] LABS: Opiate Screen,Urine Negative ng/ml (<300); Phencyclidine Screen,Urine Negative ng/ml (<25)
[2023-04-25 22:50] LABS: Uric Acid 3.3 mg/dl (2.5-6.2)
[2023-04-25 23:04] LABS: Amorphous Sediment,Urine 1+ /lpf; Bacteria,Urine Trace /lpf; Squamous Epithelial Cell,Urine Occasional #/hpf (0-5)
== END 2023-04-25 23:15 | disposition home or self-care (01) ==
LOC: OBOUT 21:16 → OB 21:17
PROVIDERS: PCP Internal Medicine Adolescent Medicine; Visit Provider Obstetrics & Gynecology
DX: O26.893 Other specified pregnancy related conditions, third trimester (principal); Z3A.34 34 weeks gestation of pregnancy; R10.9 Unspecified abdominal pain
CPT/HCPCS: 36415; 80053; 80307; 81001; 84550; 85025; G0463

== ENCOUNTER 2023-04-28 10:54 | Outpatient (CLI) | payer BC, SELFPAY ==
[2023-04-28 11:00] VITALS: BP 135/75; PULSE 94; RESP 16; TEMP 36.8; O2SAT 100; BMI 36.9
[2023-04-28 11:15] VITALS: BP 127/80; BMI 36.9
--- NOTE | 2023-04-28 11:16 | US_ITS ---
PROCEDURE INFORMATION: Exam: US Biophysical Profile Without Non-Stress Test Exam date and time: 04/28/2023 11:35 AM Age: 22 years old Clinical indication: Condition or disease; Other: Hypertension -preeclalmpsia; ; Patient HX: Preeclampsia; Additional info: HX of still TECHNIQUE: Imaging protocol: US biophysical profile without non-stress testing. COMPARISON: US OB /MATERNAL DETAIL 01/15/2023 11:25 PM FINDINGS: Gestation: Single intrauterine containing a fetus. heart rate: 127 bpm Amniotic fluid index: MARK ANTHONY is 18.02 cm. BIOPHYSICAL PROFILE: breathing movement (BPP): 2 /2 body movement (BPP): 2 /2 tone (BPP): 2 /2 Amniotic fluid (BPP): 2 /2 Biophysical profile score (BPP): 8 /8 MATERNAL ANATOMY: Cervix: Cervical length measures 3.5 cm. IMPRESSION: Single live intrauterine . Biophysical profile score 8/8
[2023-04-28 11:30] VITALS: BP 121/89
[2023-04-28 12:15] VITALS: BP 116/78
[2023-04-28] MEDS: BETAMETHASONE ACET/PHOS 6MG/ML 5ML MDV 12 MG IM (12:26)
== END 2023-04-28 13:15 | disposition admitted as inpatient to this hospital (09) ==
LOC: OBOUT 10:55 → OB 10:56
PROVIDERS: PCP Internal Medicine Adolescent Medicine; Visit Provider Obstetrics & Gynecology
DX: O13.3 Gestational [pregnancy-induced] hypertension without significant proteinuria, third trimester (principal); Z3A.34 34 weeks gestation of pregnancy; O26.893 Other specified pregnancy related conditions, third trimester
CPT/HCPCS: 76811; 76819; 76820; G0463

== ENCOUNTER 2023-04-28 16:31 | Outpatient (CLI) | payer BC, SELFPAY | END 2023-04-28 23:59 | LOC: LAB.DROPOF 16:32 | PROVIDERS: PCP Obstetrics & Gynecology; Visit Provider Obstetrics & Gynecology | DX: O26.893 Other specified pregnancy related conditions, third trimester (principal); Z3A.34 34 weeks gestation of pregnancy | CPT/HCPCS: 86403 ==

== ENCOUNTER → 2023-04-29 11:54 | Outpatient (CLI) | payer BC, SELFPAY ==
[2023-04-29 12:07] VITALS: BP 121/72; PULSE 110; RESP 16; TEMP 36.7; O2SAT 100
[2023-04-29 12:10] VITALS: BMI 36.9
[2023-04-29 12:11] VITALS: BP 121/72; PULSE 110; RESP 16; TEMP 36.7; O2SAT 100
[2023-04-29] MEDS: BETAMETHASONE ACET/PHOS 6MG/ML 5ML MDV 12 MG IM (12:27)
== END ==
LOC: OBOUT 11:55
PROVIDERS: PCP Internal Medicine Adolescent Medicine; Visit Provider Obstetrics & Gynecology
DX: O26.893 Other specified pregnancy related conditions, third trimester (principal); Z3A.35 35 weeks gestation of pregnancy
CPT/HCPCS: 96372

== ENCOUNTER 2023-05-01 10:00 | Outpatient (CLI) | payer BC, SELFPAY ==
[2023-05-01 10:26] VITALS: BMI 37.0
[2023-05-01 10:30] VITALS: BP 124/68; PULSE 97; RESP 18; TEMP 36.6; O2SAT 98; BMI 37.0
[2023-05-01 10:34] LABS: Microscopic, Urine URINE MICROSCOPIC (MICROSCOPIC)
[2023-05-01 10:42] LABS: Appearance,Urine CLEAR (Clear); Bilirubin,Urine Negative (Negative); Blood, Urine Negative (Negative); Color,Urine YELLOW (Yellow); Glucose,Urine (UA) Negative (Negative); Ketones,Urine Negative (Negative); Leukocyte Esterase,Urine 2+ (Negative); Nitrate,Urine Negative (Negative); Protein,Urine Negative (Negative); Specific Gravity, Urine 1.015 (1.005-1.030); Urobilinogen,Urine 0.2 EU/dl (0.2)
[2023-05-01 11:10] LABS: Bacteria,Urine 1+ /lpf
== END 2023-05-01 11:03 | disposition home or self-care (01) ==
LOC: OBOUT 10:01 → OB 10:02
PROVIDERS: PCP Internal Medicine Adolescent Medicine; Visit Provider Obstetrics & Gynecology
DX: O26.893 Other specified pregnancy related conditions, third trimester (principal); Z3A.35 35 weeks gestation of pregnancy
CPT/HCPCS: 81001; 87086; G0463

== ENCOUNTER 2023-05-06 13:21 | Inpatient (IN) | payer BC, SELFPAY ==
[2023-05-06 13:39] VITALS: BMI 37.9
[2023-05-06 13:45] VITALS: BMI 37.9
[2023-05-06] MEDS: hydrOXYzine pamoate 25MG CAPSULE 50 MG PO (14:24)
[2023-05-06 14:29] LABS: Basophils # 0.1 K/mm3 (0-0.2); Basophils % 0.4 % (0.1-2.0); Eosinophils % 0.4 % (0.1-12.0); Hematocrit 35.7 % (37.0-47.0); Hemoglobin 11.4 g/dL (12.2-16.2); Lymphocytes % 16.6 % (10-50); Mean Corpuscular Hemoglobin 31.1 pg (27.0-31.2); Mean Corpuscular Volume 97.3 fl (81-99); Mean Platelet Volume 9.2 fl (7.4-10.4); Monocytes # 0.8 K/mm3 (0.1-1.0); Monocytes % 6.4 % (1.7-9.3); Neutrophils # 9.4 K/mm3 (1.8-7.8); Neutrophils % 76.3 % (37.0-80.0); Platelet Count 240 K/mm3 (142-424); Red Blood Count 3.67 M/mm3 (4.20-5.40); Red Cell Distribution Width 15.3 % (11.5-17.5); White Blood Count 12.3 K/mm3 (4.8-10.8)
[2023-05-06] MEDS: miSOPROStol 100MCG TABLET 50 MCG PO ×2 (14:54→21:04)
[2023-05-06 17:06] LABS: Microscopic, Urine URINE MICROSCOPIC (MICROSCOPIC)
[2023-05-06 17:09] LABS: Appearance,Urine SL CLOUDY (Clear); Bilirubin,Urine Negative (Negative); Blood, Urine Negative (Negative); Color,Urine YELLOW (Yellow); Glucose,Urine (UA) Negative (Negative); Ketones,Urine Negative (Negative); Leukocyte Esterase,Urine 1+ (Negative); Nitrate,Urine Negative (Negative); Protein,Urine TRACE (Negative); Urobilinogen,Urine 0.2 EU/dl (0.2)
[2023-05-06 18:15] LABS: Barbiturates Screen,Urine Negative ng/ml (<200)
[2023-05-06 18:16] LABS: Amphetamine/Metha Screen,Urine Negative ng/ml (<1000); Benzodiazepines Screen,Urine Negative ng/ml (<200)
[2023-05-06 18:17] LABS: Cannabinoid Screen,Urine Negative ng/ml (<50)
[2023-05-06 18:18] LABS: Cocaine Screen,Urine Negative ng/ml (<300); Methadone Screen,Urine Negative ng/ml (<300)
[2023-05-06 18:19] LABS: Opiate Screen,Urine Negative ng/ml (<300)
[2023-05-06 18:20] LABS: Phencyclidine Screen,Urine Negative ng/ml (<25)
[2023-05-06 18:59] LABS: Bacteria,Urine 3+ /lpf; Squamous Epithelial Cell,Urine Occasional #/hpf (0-5); WBC,Urine Occasional #/hpf (0-3)
[2023-05-06 21:11] VITALS: BP 119/59; PULSE 91; RESP 20; TEMP 36.6; O2SAT 98
--- NOTE | 2023-05-06 21:46 | EXP.OB.APHP ---
OB - H&P: HPI Antepartum History of Present Illness Chief complaint: Scheduled induction of labor History of present illness: Mrs Salima Ferreira is a 22 yo at 35w6d who presents to [facility] Labor and Delivery for scheduled induction of labor secondary to history of stillbirth at 26 weeks and associated anxiety and worry during this . She has had good care. Baby is active. GBS negative. She received Celestone 04/27 and 04/28 secondary to anticipation of earlier delivery. She has had some random elevated blood pressures in the past few weeks. History of Present Criteria for establishing EDC:: based on 1st trimester US only care: good care Ultrasounds: normal mid trimester US Medical complications: psychiatric (anxiety) Labs Blood type: O (+) positive Rubella: immune RPR/VDRL: nonreactive GBS status: negative HBsAG: negative [facility] Disclaimer: The information contained in this section may have been updated after the patient was seen, as this information can be updated by other users. Medical History (Updated 05/06/23 @ 21:51 by Chely Mccarthy DO) 36 weeks gestation of Anemia affecting History of pre-eclampsia in prior , currently History of stillbirth in currently patient Anxiety Depression Forceps delivery with baby delivered Stillbirth with antepartum Dizziness Obesity (BMI 30.0-34.9) Surgical History History of thumb surgery Family History Other Diabetes Social History Smoking Status: Never smoker alcohol intake: never current occupational status: other Travel in the last 8 weeks: None current occupation: [employer] employee Review of Systems Review of Systems Review of systems:: pertinent systems reviewed and negative unless documented below Meds Home Medications and Allergies Home Medications Medication Instructions Recorded Confirmed Type vits no.126-ferrous fum 1 tab PO DAILY 09/25/22 05/05/23 History 28 mg iron-folic acid 800 mcg tablet (Classic ) ferrous sulfate 325 mg (65 mg 325 mg PO DAILY #90 tabs 10/23/22 05/05/23 Rx iron) tablet magnesium oxide 800 mg (2 x 400 mg magnesium) PO 11/05/22 05/05/23 Rx BID #60 caps ondansetron 4 mg disintegrating 4 mg PO Q6H PRN nausea and 11/19/22 05/05/23 Rx tablet vomiting #30 tabs aspirin 81 mg tablet,delayed 81 mg PO DAILY 11/21/22 05/05/23 History release sertraline 50 mg tablet 75 mg (1.5 x 50 mg) PO DAILY #30 12/25/22 05/05/23 Rx tabs cyecrdfyoy-zjuphynvkubur-woalbxeh 1 cap PO ONCE PRN 05/05/23 05/05/23 History 50 mg-300 mg-40 mg capsule New Prescriptions to Start Prescriptions: Allergies Allergy/AdvReac Type Severity Reaction Status Date / Time No Known Allergies Allergy Verified 05/05/23 09:44 OB - H&P: Exam Constitutional no acute distress and cooperative Routine HEENT Exam Head: Present normocephalic and atraumatic Eye: Absent conjunctivae pink ENT: Present mucous membranes moist Routine Neck Exam Present full ROM Routine Respiratory Exam Present CTA bilaterally and normal respiratory effort Routine Cardiovascular Exam Present RRR Routine Abdominal Exam Present soft (Gravid); Absent tenderness Routine Rectal Exam Patient deferred: visual exam Routine Exam External: Present normal urethra appearance; Absent erythema, tenderness or lesions Routine Extremities Exam Present full ROM; Absent edema or calf tenderness Routine Neurological Exam Present alert, moving all extremities and normal speech Routine Psychiatric Exam Present normal affect and cooperative OB - Results Labs Labs: Short CBC 05/06/23 Range/Units 14:15 WBC 12.3 H (4.8-10.8) K/mm3 Hgb 11.4 L (12.2-16.2) g/dL Hct 35.7 L (37.0-47.0) % Plt Count 240 (142-424) K/mm3 Urine 05/06/23 Range/Units 16:50 Urine Color Yellow (Yellow) Urine Appearance Sl cloudy (Clear) Urine pH 8.0 (5.0-8.5) Ur Specific [place] 1.020 (1.005-1.030) Urine Protein Trace (Negative) Urine Glucose (UA) Negative (Negative) OB - A/P Antepartum (1) 36 weeks gestation of : Status: Acute (2) History of stillbirth in currently patient: Problem details: at 26 weeks Status: Acute (3) Anxiety during : Status: Acute (4) Maternal obesity affecting , antepartum: Status: Acute (5) History of pre-eclampsia in prior , currently : Status: Acute (6) Anemia affecting : Status: Acute Additional Plan Planning to breastfeed?: Yes Plan: induction Additional Information:: Admit to [facility] L&D for induction of labor Induction of labor with Cytotec followed by Pitocin GBS negative Close monitoring
[2023-05-07] MEDS: miSOPROStol 100MCG TABLET 50 MCG PO ×2 (03:02→13:12)
[2023-05-07 04:47] VITALS: BP 132/65; PULSE 86; RESP 21; TEMP 36.8; O2SAT 99
--- NOTE | 2023-05-07 07:30 | P.CONPHA_ITS ---
Pharmacy Intervention Comments: MEDICATION RECONCILIATION COMPLETED ON PATIENT USING LIST FROM SALES RECEPTIONIST OFFICE AND TRES REPORT. -PASTORA BRENNAN, SANDROD
--- NOTE | 2023-05-07 07:30 | HMH.PHAINT1 ---
Pharmacy Intervention Comments: MEDICATION RECONCILIATION COMPLETED ON PATIENT USING LIST FROM BLEACH ANALYST OFFICE AND TRES REPORT. -PASTORA BRENNAN, SANDROD
--- NOTE | 2023-05-07 09:04 | EXP.LABOR.NO ---
Labor Note Subjective: Date: 05/07/23 Time: 09:04 Objective: NST:: Reactive Contractions:: infrequent Cervical Dilation:: 1 Effacement:: 50% Station: -3 Membranes: intact Comment:: NST category 1 Baseline 125 bpm, moderate variability, + accelerations, no decelerations Fetus: Monitoring?: Yes monitoring type:: External Assessment: Labor progressing?: No Problems: (1) 36 weeks gestation of : Category: Medical Code(s): Z3A.36 - 36 weeks gestation of (2) History of stillbirth in currently patient: Problem Comment: at 26 weeks Qualifiers: Trimester: first trimester Qualified Code(s): O09.291 - Supervision of with other poor reproductive or obstetric history, first trimester Category: Medical Code(s): O09.299 - Supervision of with other poor reproductive or obstetric history, unspecified trimester (3) Maternal obesity affecting , antepartum: Qualifiers: Obesity type affecting : unspecified obesity Qualified Code(s): O99.210 - Obesity complicating , unspecified trimester Category: Medical Code(s): O99.210 - Obesity complicating , unspecified trimester (4) Anxiety during : Category: Medical Code(s): O99.340 - Other mental disorders complicating , unspecified trimester; F41.9 - Anxiety disorder, unspecified (5) History of pre-eclampsia in prior , currently : Category: Medical Code(s): O09.299 - Supervision of with other poor reproductive or obstetric history, unspecified trimester (6) Anemia affecting : Qualifiers: Trimester: unspecified trimester Qualified Code(s): O99.019 - Anemia complicating , unspecified trimester Category: Medical Code(s): O99.019 - Anemia complicating , unspecified trimester Plan: Comment:: Cervical exam /-3. NST category 1, reactive Last Cytotec dose was 0300 Okay to hold Pitocin. Will let Salima shower and eat. Plan for increased movement, out of bed to try to bring baby down. Plan to restart induction around 1300 today with Cytotec 50 mg q 6 hrs PRN cervical change, max 3 doses Discussed possible Cook catheter. However, Salima did not tolerate cervical exam well and would not tolerate Cook catheter at this time. Close monitoring
[2023-05-07 12:55] VITALS: BP 119/62; PULSE 106; RESP 18; TEMP 36.8; O2SAT 98
--- NOTE | 2023-05-07 17:29 | EXP.LABOR.NO ---
Labor Note Subjective: Date: 05/07/23 Time: 17:29 Objective: NST:: Reactive Cervical Dilation:: 1 Effacement:: 50% Station: -3 Membranes: intact Fetus: Monitoring?: Yes monitoring type:: External Problems: (1) 36 weeks gestation of : Category: Medical Code(s): Z3A.36 - 36 weeks gestation of (2) Maternal obesity affecting , antepartum: Qualifiers: Obesity type affecting : unspecified obesity Qualified Code(s): O99.210 - Obesity complicating , unspecified trimester Category: Medical Code(s): O99.210 - Obesity complicating , unspecified trimester (3) Anxiety during : Category: Medical Code(s): O99.340 - Other mental disorders complicating , unspecified trimester; F41.9 - Anxiety disorder, unspecified (4) History of stillbirth in currently patient: Problem Comment: at 26 weeks Qualifiers: Trimester: first trimester Qualified Code(s): O09.291 - Supervision of with other poor reproductive or obstetric history, first trimester Category: Medical Code(s): O09.299 - Supervision of with other poor reproductive or obstetric history, unspecified trimester (5) History of pre-eclampsia in prior , currently : Category: Medical Code(s): O09.299 - Supervision of with other poor reproductive or obstetric history, unspecified trimester (6) Anemia affecting : Qualifiers: Trimester: unspecified trimester Qualified Code(s): O99.019 - Anemia complicating , unspecified trimester Category: Medical Code(s): O99.019 - Anemia complicating , unspecified trimester Plan: Comment:: She received Cytotec at 1300. Cervical exam ad 1700 /-3, more anterior, softer, easier to reach Discussed Cook catheter. Cook catheter was inserted with 40 cc of sterile water in uterine balloon and vaginal balloon. Plan to start low dose Pitocin, 2 units, at 1900. Discontinue Cytotec Close monitoring
[2023-05-07] MEDS: DEXTROSE 5%-LACTATED RINGERS 1,000 ML 125 ML IV (19:21)
[2023-05-07] MEDS: OXYTOCIN/RINGERS LACTATE 30 UNITS/500 ML BAG IV (19:21)
[2023-05-07] MEDS: LACTATED RINGERS 1000ML 1,000 ML 250 ML IV (19:22)
--- NOTE | 2023-05-08 01:24 | P.PNANES_ITS ---
[facility] Disclaimer: The information contained in this section may have been updated after the patient was seen, as this information can be updated by other users. Medical History (Updated 05/06/23 @ 21:51 by Chely Mccarthy DO) 36 weeks gestation of Anemia affecting History of pre-eclampsia in prior , currently History of stillbirth in currently patient Anxiety Depression Forceps delivery with baby delivered Stillbirth with antepartum Dizziness Obesity (BMI 30.0-34.9) Surgical History History of thumb surgery Family History Other Diabetes Social History Smoking Status: Never smoker alcohol intake: never substance use type: denies use current occupational status: other Travel in the last 8 weeks: None current occupation: [employer] employee [employer] Anesthesia Checklist Patient Identification Patient Identification: Verbal (Name & ) Structural Data Admitted From: Inpatient Planned Operative Procedure/s: labor epidural Consent for Planned Operative Procedure(s) Verified: Yes Airway Assessment Mallampati Score:: Class II C-Spine Mobility Assessed: Yes TMJ Mobility Assessed: Yes Dentition: Good Dentition Neurological Assessment Level of Consciousness: Awake, Alert and Appropriate Anesthesia Plan Anesthesia Risk discussed: Yes Anesthesia Plan: Verified ASA Class: II Anesthesia Type: Epidural
[2023-05-08] MEDS: DEXTROSE 5%-LACTATED RINGERS 1,000 ML 125 ML IV ×2 (03:20→11:15)
[2023-05-08 08:15] VITALS: BP 122/73; PULSE 89; RESP 16; TEMP 36.9; O2SAT 98
--- NOTE | 2023-05-08 09:36 | EXP.LABOR.NO ---
Labor Note Subjective: Date: 05/08/23 Time: 09:36 irregular contractions Objective: NST:: Reactive Cervical Dilation:: 4-5 Effacement:: 50% Station: -2 Membranes: ruptured (copious clear fluid ) Comment:: Infant tolerated AROM well Fetus: Monitoring?: Yes monitoring type:: External (FHT) and Internal (IUPC) Assessment: Labor progressing?: Yes Cephalopelvic disproportion?: No Plan: Anesthesia for epidural?: Yes Plan for ?: No Continue to monitor?: Yes Start pushing?: No
[2023-05-08 10:25] VITALS: TEMP 36.7
[2023-05-08 12:00] VITALS: TEMP 36.8
[2023-05-08 14:00] VITALS: TEMP 36.9
[2023-05-08 16:00] VITALS: TEMP 36.9
[2023-05-08 17:45] VITALS: TEMP 36.7
--- NOTE | 2023-05-08 19:34 | EXP.LABOR.NO ---
Labor Note Subjective: Date: 05/08/23 Time: 19:34 regular contraction Objective: NST:: Reactive Contractions:: every 2-3 minutes Cervical Dilation:: 9-10 Effacement:: 100% Station: 0 Membranes: ruptured Fetus: Monitoring?: Yes monitoring type:: Internal and External Assessment: Labor progressing?: Yes Cephalopelvic disproportion?: No Plan: Anesthesia for epidural?: Yes Continue to labor down?: Yes Plan for ?: No Continue to monitor?: Yes Start pushing?: Yes Additional information:: Patient is doing well she was an anterior lip, I arrived on the unit we attempted to do some practice pushes and push The anterior lip. I was able to reduce it but it continued to come back after every contraction. Decision was made to labor down. Patient is now fully dilated and feeling the urge to push. She was placed back in dorsal lithotomy position and pushing was began. Fetus was having early and variable decelerations, however is an overall reassuring strip
[2023-05-08] MEDS: OXYTOCIN/RINGERS LACTATE 30 UNITS/500 ML BAG 40 UNITS IV (20:30)
--- NOTE | 2023-05-08 20:50 | P.PCN_ITS ---
Delivery Note Delivery Date:: 05/08/23 Delivery Time:: 20:26 Anesthesia Type: Epidural Was labor medically induced?: Yes Induction method: per misoprostol protocol Gestational age (weeks): 37 Infant delivered prior to 39 weeks?: Yes Justification for early elective delivery:: Gestational Hypertension Gender: Male at 1 minute: 7 (one for tone, cry, color) at 5 minutes: 8 (one for color and cry) LAC or MLE?: LAC Delivery Procedure:: Preoperative diagnosis: 1. at 36 completed this weeks gestation, vertex 2. Rh positive 3. GBS negative 4. Gestational hypertension 5. Poor surgical history with a stillbirth at 26 weeks gestation secondary to preeclampsia Postoperative diagnosis: 1. at 36 completed this weeks gestation, vertex 2. Rh positive 3. GBS negative 4. Gestational hypertension 5. Poor surgical history with a stillbirth at 26 weeks gestation secondary to preeclampsia EBL: 150mL Specimen: 1. Cord blood Findings: 1. Liveborn viable male infant: Jeff. Apgars 7/8 at 1 and 5 minutes r espectively. Weight pending at time of dictation 2. 2nd degree midline perineal laceration Complications: None Procedure: Nonoperative spontaneous vaginal delivery Patient was brought to labor and delivery for Cytotec cervical ripening. She received 4 doses of Cytotec and tolerated that well. Following that she had a Gomez balloon and when the balloon came out she was 4/50/-3 around midnight 05/07/23. After that Pitocin was started and induction was continued per Pitocin protocol. Patient had spontaneous rupture of membranes revealing clear fluid at 0919 she was 5cm at that time. An IUPC was placed at that time as contractions were difficult to trace. She was noted to not have adequate MVUs and pitocin was increased. She received an epidural for anesthesia. She progressed to comple te. The infant was noted to be in ENA position. With effective maternal pushing there was a nonoperative spontaneous vaginal delivery. There was not a nuchal cord, howevere there was a compound presentation with the left fist by the face. The anterior right shoulder delivered, followed by the posterior shoulder without dystocia. The body and lower extremities delivered without difficulty. The was bulb suctioned and was crying immediately following delivery. The infant was placed on the maternal abdomen and greater than one minute was appreciated for delayed cord clamping. The umbilical cord was doubly clamped and cut. Cord blood was collected and sent for routine testing. The placenta delivered with cord traction and suprapubic contertraction and pitocin was started. The uterus was firm and bleeding was minimal. The perineum, vaginal cope, cervix, and paraurethral area were inspected thoroughly. There was a second-degree midline perineal laceration that was repaired in the usual fashion using 2-0 Vicryl suture. The laceration was hemostatic. The cervix and vaginal cope were inspected and noted to be hemostatic. This concluded the delivery. The patient was counseled regarding the events of the delivery and repair. The patient tolerated the delivery well. All counts were correct by nursing. Mother and were doing well and bonding upon my leaving the delivery room. Laceration:: vaginal Placental Delivery Description: Spontaneous
[2023-05-08] MEDS: ACETAMINOPHEN 500MG TAB 1000 MG PO (21:24)
[2023-05-08] MEDS: IBUPROFEN 400 MG TABLET 800 MG PO (21:24)
[2023-05-08] MEDS: MAGNESIUM PO (21:49)
[2023-05-08] MEDS: MAGNESIUM OXIDE 400 MG PO (21:49)
[2023-05-09 06:24] LABS: Basophils # 0.1 K/mm3 (0-0.2); Basophils % 0.4 % (0.1-2.0); Eosinophils # 0.1 K/mm3 (0.0-0.4); Eosinophils % 0.4 % (0.1-12.0); Hematocrit 37.1 % (37.0-47.0); Hemoglobin 11.7 g/dL (12.2-16.2); Lymphocytes # 2.2 K/mm3 (0.7-4.5); Lymphocytes % 15.4 % (10-50); Mean Corpuscular HGB Conc 31.7 g/dL (31.8-35.4); Mean Corpuscular Hemoglobin 31.3 pg (27.0-31.2); Mean Corpuscular Volume 98.9 fl (81-99); Mean Platelet Volume 9.2 fl (7.4-10.4); Monocytes # 0.9 K/mm3 (0.1-1.0); Monocytes % 6.4 % (1.7-9.3); Neutrophils # 11.2 K/mm3 (1.8-7.8); Neutrophils % 77.5 % (37.0-80.0); Platelet Count 232 K/mm3 (142-424); Red Blood Count 3.75 M/mm3 (4.20-5.40); Red Cell Distribution Width 15.3 % (11.5-17.5); White Blood Count 14.4 K/mm3 (4.8-10.8)
[2023-05-09 09:03] VITALS: BP 131/72; PULSE 89; RESP 16; TEMP 36.6; O2SAT 99
--- NOTE | 2023-05-09 09:04 | EXP.ACUTE.PN ---
Subjective *Date: 05/09/23 *Time: 09:04 Interval history: PPD # 1 s/p Feeling well. Pain controlled. Formula feeding. Lochia appropriate. Voiding without difficulty and passing flatus. Tolerating regular diet. Denies fever/chills, chest pain and shortness of breath. No headaches, vision changes, lightheadedness/dizziness. No lower extremity swelling. Ambulating well ad wil. Medical Exam Vital signs and Labs for Last 24 Hours: Vital Signs Temp 05/08/23 17:45 98.0 F 05/08/23 16:00 98.4 F 05/08/23 14:00 98.5 F 05/08/23 12:00 98.3 F 05/08/23 10:25 98.0 F Laboratory Results - last 24 hr 05/09/23 05:17: WBC 14.4 H, RBC 3.75 L, Hgb 11.7 L, Hct 37.1, MCV 98.9, MCH 31.3 H, MCHC 31.7 L, RDW 15.3, Plt Count 232, MPV 9.2, Neut % (Auto) 77.5, Lymph % (Auto) 15.4, [place] % (Auto) 6.4, Eos % (Auto) 0.4, Baso % (Auto) 0.4, Neut # (Auto) 11.2 H, Lymph # (Auto) 2.2, [place] # (Auto) 0.9, Eos # (Auto) 0.1, Baso # (Auto) 0.1 I & O for Labs for Last 24 Hours: Intake & Output 05/06/23 05/07/23 05/08/23 05/09/23 23:59 23:59 23:59 23:59 Output Total 1800 / 1800 Balance -1800 / -1800 Weight 228 lb Microbiology Reports for the Last 24 Hours: Microbiology 05/06/23 16:50 Urine,Clean Catch Urine Culture - Final Head: Present atraumatic and normocephalic ENT: Present mucous membranes moist Neck: Present full ROM Respiratory: Present CTA bilaterally and normal respiratory effort Cardiac: Present Reg Rate and Rhythm GI: Present soft; Absent distention or tenderness Comments:: Uterine fundus firm and below umbilicus Rectal (female): Present deferred (female): Present deferred Extremities: Present full ROM; Absent edema or calf tenderness Neuro: Present alert, awake and moves all extremities Assessment and Plan *Assessment and plan (1) Status post normal vaginal delivery: Status: Acute Category: Medical (2) 36 weeks gestation of : Status: Acute Category: Medical Code(s): Z3A.36 - 36 weeks gestation of (3) History of stillbirth in currently patient: Problem Comment: at 26 weeks Status: Acute Qualifiers: Trimester: first trimester Qualified Code(s): O09.291 - Supervision of with other poor reproductive or obstetric history, first trimester Category: Medical Code(s): O09.299 - Supervision of with other poor reproductive or obstetric history, unspecified trimester (4) Anxiety during : Status: Acute Category: Medical Code(s): O99.340 - Other mental disorders complicating , unspecified trimester; F41.9 - Anxiety disorder, unspecified (5) Maternal obesity affecting , antepartum: Status: Acute Qualifiers: Obesity type affecting : unspecified obesity Qualified Code(s): O99.210 - Obesity complicating , unspecified trimester Category: Medical Code(s): O99.210 - Obesity complicating , unspecified trimester (6) History of pre-eclampsia in prior , currently : Status: Acute Category: Medical Code(s): O09.299 - Supervision of with other poor reproductive or obstetric history, unspecified trimester (7) Anemia affecting : Status: Acute Qualifiers: Trimester: unspecified trimester Qualified Code(s): O99.019 - Anemia complicating , unspecified trimester Category: Medical Code(s): O99.019 - Anemia complicating , unspecified trimester Plan Continue routine care Encouraged increased ambulation Plan d/c home tomorrow, PPD # 2
[2023-05-09] MEDS: SERTRALINE 50MG TABLET 75 MG PO (10:04)
[2023-05-09 17:30] VITALS: BP 162/81; PULSE 92; RESP 16; TEMP 36.7; O2SAT 98
[2023-05-09 17:45] VITALS: BP 130/70; PULSE 95
[2023-05-10 07:57] VITALS: BP 147/83; PULSE 93; RESP 18; TEMP 36.7; O2SAT 99
[2023-05-10] MEDS: SERTRALINE 50MG TABLET 75 MG PO (09:55)
--- NOTE | 2023-05-10 11:28 | EXP.DC.SUM ---
General Admission date:: 05/06/23 Discharge date: 05/10/23 HPI HPI HPI: PPD # 2 s/p Resting comfortably. Feeling well. Pain controlled. Formula feeding. Light lochia. Voiding without difficulty and passing flatus. Tolerating regular diet. Denies fever/chills, chest pain and shortness of breath. No headaches, vision changes, lightheadedness/dizziness. No lower extremity swelling. Ambulating well ad wil. Hospital Course Hospital Course Hospital Course: Mrs Salima Ferreira is a 22 yo at 35w6d who presents to [facility] Labor and Delivery for scheduled induction of labor secondary to history of stillbirth at 26 weeks and associated anxiety and worry during this . She has had good care. Baby is active. GBS negative. She received Celestone 04/27 and 04/28 secondary to anticipation of earlier delivery. She has had some random elevated blood pressures in the past few weeks. She underwent two day induction of labor with Cytotec followed by Cook catheter and Pitocin. She had a normal spontaneous vaginal delivery on 05/08/23 at 2025. She delivered a live male baby, Jeff, weighing 6 lb 13 oz. APGARs 7 (1 min), 8 (5 min). EBL 150 mL. She did well . Pain controlled. Formula feeding. Light lochia. Voiding without difficulty and passing flatus. Tolerating regular diet. Denies fever/chills, chest pain and shortness of breath. No headaches, dizziness/lightheadedness or vision changes. Vital signs stable, afebrile. Heart regular rate and rhythm. Lungs clear to auscultation. Abdomen soft, nontender. No lower extremity swelling. Ambulating well ad wil. Normal hospital course. She was discharged to home on POD # 2 with instructions to follow-up in the office in 2 weeks or sooner if needed. Exam Data for Last 24 hours Vital signs and Labs for Last 24 Hours: Temp Pulse Resp BP Pulse Ox O2 Del Method 98.1 F 93 H 18 147/83 H 99 Room Air 05/10/23 07:57 05/10/23 07:57 05/10/23 07:57 05/10/23 07:57 05/10/23 07:57 05/10/23 07:57 Laboratory Results - last 24 hr 05/06/23 14:15: Crossmatch ([facility]) See Detail I & O for Last 24 hours: Intake & Output 05/07/23 05/08/23 05/09/23 05/10/23 23:59 23:59 23:59 23:59 Output Total 1800 / 1800 Balance -1800 / -1800 Constitutional Constitutional: no acute distress and cooperative *Routine HEENT Exam Head: Present normocephalic and atraumatic Eye: Absent conjunctivae pink ENT: Present mucous membranes moist *Routine Neck Exam Neck: Present full ROM *Routine Respiratory Exam Respiratory: Present CTA bilaterally and normal respiratory effort *Routine Cardiovascular Exam Cardiovascular: Present RRR *Routine Abdominal Exam Abdominal: Present soft; Absent tenderness or distended Comments: Uterine fundus firm and below umbilicus *Routine Rectal Exam Patient deferred: visual exam *Routine Exam Patient deferred: external exam *Routine Extremities Exam Extremities: Present full ROM; Absent edema or calf tenderness *Routine Neurological Exam Neurological: Present alert, moving all extremities and normal speech Routine Psychiatric Exam Psychiatric: Present normal affect and cooperative Results Data Completed and Pending Labs on day of discharge: Labs from last 24 hours 05/06/23 14:15 Crossmatch ([facility]) See Detail DS: Diagnosis Discharge Diagnosis (1) Status post normal vaginal delivery: Status: Acute (2) 36 weeks gestation of : Status: Acute Code(s): Z3A.36 - 36 weeks gestation of (3) History of stillbirth in currently patient: Status: Acute Code(s): O09.299 - Supervision of with other poor reproductive or obstetric history, unspecified trimester Qualifiers: Trimester: first trimester Qualified Code(s): O09.291 - Supervision of with other poor reproductive or obstetric history, first trimester Problem details: at 26 weeks (4) Anxiety during : Status: Acute Code(s): O99.340 - Other mental disorders complicating , unspecified trimester; F41.9 - Anxiety disorder, unspecified (5) Maternal obesity affecting , antepartum: Status: Acute Code(s): O99.210 - Obesity complicating , unspecified trimester Qualifiers: Obesity type affecting : unspecified obesity Qualified Code(s): O99.210 - Obesity complicating , unspecified trimester (6) History of pre-eclampsia in prior , currently : Status: Acute Code(s): O09.299 - Supervision of with other poor reproductive or obstetric history, unspecified trimester (7) Anemia affecting : Status: Acute Code(s): O99.019 - Anemia complicating , unspecified trimester Qualifiers: Trimester: unspecified trimester Qualified Code(s): O99.019 - Anemia complicating , unspecified trimester Meds Home Medications and Allergies Home Medications Medication Instructions Recorded Confirmed Type vits no.126-ferrous fum 1 tab PO DAILY 09/25/22 05/07/23 History 28 mg iron-folic acid 800 mcg tablet (Classic ) magnesium oxide 800 mg (2 x 400 mg magnesium) PO 11/05/22 05/07/23 Rx BID #60 caps sertraline 50 mg tablet 75 mg (1.5 x 50 mg) PO DAILY #30 12/25/22 05/07/23 Rx tabs ondansetron 4 mg disintegrating 4 mg PO Q6HP PRN nausea and 05/07/23 05/07/23 History tablet vomiting ibuprofen 800 mg tablet 800 mg PO Q8H PRN pain #20 tabs 05/10/23 Rx New Prescriptions to Start Prescriptions: ibuprofen Chely Mccarthy Allergies Allergy/AdvReac Type Severity Reaction Status Date / Time No Known Allergies Allergy Verified 05/05/23 09:44 Discharge Plan Disposition Patient Disposition: Home, Self-Care Condition: Good Discharge Order Discharge Orders: Discharge Order (Routine); Ordered 05/10/23 Ordered By: Chely Mccarthy Follow up Plan Follow up with: Chely Mccarthy DO [Staff Physician] - 05/22/23 (Call the office on friday to setup an appointment for 2 weeks from delivery.) Prescriptions/Medication Reconciliation: New ibuprofen 800 mg tablet 800 mg PO Q8H PRN (Reason: pain) Qty: 20 0RF Continued Classic 28 mg iron- 800 mcg tablet 1 tab PO DAILY magnesium oxide 400 mg magnesium capsule 800 mg PO BID Qty: 60 2RF sertraline 50 mg tablet 75 mg PO DAILY Qty: 30 2RF ondansetron 4 mg tablet,disintegrating 4 mg PO Q6HP PRN (Reason: nausea and vomiting) Discontinued [id number]-tgypvvwpmmnho-kqpn 50-300-40 mg capsule 1 cap PO TIDP PRN (Reason: Headache) aspirin 81 mg tablet,delayed release (DR/EC) 81 mg PO DAILY ferrous sulfate 325 mg (65 mg iron) tablet 325 mg PO DAILY Qty: 90 2RF Problem Reconciliation Problems Reviewed?: Yes Patient Discharge Instructions DIET: continue same diet and regular diet Additional Instructions: Discharge: 1. Take 800 mg Ibuprofen every 8 hours as needed for pain. You can also take 500-1000 mg of Tylenol in between doses, every 6-8 hours. 2. Nothing in the vagina for 6 weeks - no intercourse, douching or tampons. No tub baths/hot tubs or swimming pools 3. Reasons to return to L&D or call On-Call doctor - fever (greater than 100.4) - heavy vaginal bleeding (soaking through 1 pad in less than 2 hours) - vaginal discharge (malodorous and/or purulent) - severe headaches not resolved by medication or rest and leg tenderness/edema 4. depression/blues - Normal to feel anxious/overwhelmed for first 2 weeks - Talk to your doctor if: severe anxiety, trouble bonding with baby, withdrawing from other family members, thoughts of harming yourself or others Thanks for letting us care for you! Chely Mccarthy DO [facility] [phone] Patient Instructions: Depression, Hemorrhage, DI for Labor and Delivery, Vaginal , DI for Pre-eclampsia, [facility] Post Discharge Instructions Providers Primary Care Provider: Pedro Hurtado Admit Provider: Brigitte Summers Attending Provider: Chely Mccarthy
== END 2023-05-10 12:38 | disposition home or self-care (01) | DRG 807 ==
PROVIDERS: Admitting Provider Obstetrics & Gynecology; PCP Internal Medicine Adolescent Medicine; Visit Provider Obstetrics & Gynecology
DX: O13.4 Gestational [pregnancy-induced] hypertension without significant proteinuria, complicating childbirth (principal); Z37.0 Single live birth; Z3A.37 37 weeks gestation of pregnancy; O70.1 Second degree perineal laceration during delivery; O99.344 Other mental disorders complicating childbirth; O99.214 Obesity complicating childbirth; Z68.37 Body mass index [BMI] 37.0-37.9, adult
CPT/HCPCS: 59409; 36415; 59025; 80307; 81001; 85025; 86850; 87086; C1758

== ENCOUNTER 2023-12-04 18:15 | Emergency (ER) | payer BC, SELFPAY ==
--- NOTE | 2023-12-04 18:15 | ECG_ITS ---
APPROVED REPORT Exam: Resting ECG HR:89 bpm ECG Measurements Heart Rate 89 AXES ME 159 P 51 QRSd 99 QRS -4 QT 353 T 41 QTc 400 Conclusion SINUS RHYTHM LOW QRS VOLTAGE IN PRECORDIAL LEADS [QRS DEFLECTION < 1.0 mV IN CHEST LEADS] INCOMPLETE RIGHT BUNDLE BRANCH BLOCK [90+ ms QRS DURATION, TERMINAL R IN V1/V2, 40+ ms S IN I/aVL/V4/V5/V6] Electronically signed by : MONTANA TAYLOR, 12/04/2023 22:56:24
[2023-12-04 18:16] VITALS: BP 136/100; PULSE 95; RESP 18; TEMP 36.7; O2SAT 100; BMI 41.5
--- NOTE | 2023-12-04 18:18 | [facility].EDCP ---
Discharge Plan Disposition Patient Disposition: Home, Self-Care Condition: Good Prescriptions Prescriptions: No Action sertraline 100 mg tablet 100 mg PO DAILY Qty: 30 2RF Referrals Follow up/Referrals: Giovani Juarez II, MD [Staff Physician] - See instructions Pedro Hurtado MD [Primary Care Provider] - See instructions Activity Restrictions/Add. Instructions Additional Instructions/Restrictions: Referred you to gastroenterology for follow-up of your elevated liver enzymes. Follow-up with your PCP for no improvement or recurrence of your symptoms. Return to ER as needed for any worsening signs or symptoms. Clinical Impressions Clinical Impression: Chest pain Qualifiers: Chest pain type: unspecified Qualified Code(s): R07.9 - Chest pain, unspecified Print Language Print Language: Filipino Discharge ED Provider: Toin Pa HPI <JOLYNN Arvizu - Last Filed: 12/04/23 22:49> General Chief Complaint: Chest Pain Stated Complaint: Chest Pain Time Seen by Provider: 12/04/23 18:18 History of Present Illness HPI narrative: Patient presents for evaluation of chest pain . Patient gives a history of right sided thoracicoabdominal pain that she has had intermittently over the last several months. It usually last 2 to 3 minutes and goes away. Her last episode was today around 530 that again lasted 2 minutes. She had not recently eating and reports no trauma. She denies any shortness of breath fever chills hemoptysis hematochezia melena nausea vomiting diarrhea. Related Data Previous Rx's ?Medication ?Instructions ?Recorded sertraline 100 mg tablet 100 mg PO DAILY #30 tabs 05/21/23 Allergies Allergy/AdvReac Type Severity Reaction Status Date / Time No Known Allergies Allergy Verified 06/05/23 11:07 [facility] <JOLYNN Arvizu - Last Filed: 12/04/23 22:49> [facility] Disclaimer: The information contained in this section may have been updated after the patient was seen, as this information can be updated by other users. Medical History Status post normal vaginal delivery 36 weeks gestation of Anemia affecting History of pre-eclampsia in prior , currently History of stillbirth in currently patient at 26 weeks Anxiety Depression Forceps delivery with baby delivered Forcep assisted vaginal delivery of breech baby Stillbirth with antepartum Dizziness Obesity (BMI 30.0-34.9) Surgical History History of thumb surgery Family History Other Diabetes Social History Smoking Status: Never smoker alcohol intake: never substance use type: denies use current occupational status: other Travel in the last 8 weeks: None current occupation: [employer] employee Other Medical History Have you received the Flu Vaccine for this season: No Have you received the Pneumonia Vaccine: No <JOLYNN Arvizu - Last Filed: 12/04/23 22:49> ROS Obtained: Yes Systems reviewed as appropriate & no additional complaints except as documented Physical Exam <JOLYNN Arvizu - Last Filed: 12/04/23 22:49> General General appearance: alert and in no apparent distress Respiratory Respiratory exam: Present normal lung sounds bilaterally Cardiovascular Cardiovascular exam: Present regular rate Neurological Exam Neurological exam: Present alert and oriented X3 HEART Score <JOLYNN Arvizu - Last Filed: 12/04/23 22:49> HEART Score HEART Score assessment performed?: Yes History (anamnesis): Slightly suspicious ECG: Normal Age: <45 years Risk factors: 1-2 risk factors Troponin: </= normal limit HEART Score: 1 <Toni Pa MD - Last Filed: 12/04/23 23:10> HEART Score HEART Score: 1 Critical Care <JOLYNN Arvizu - Last Filed: 12/04/23 22:49> Critical Care Time Critical Care Time: No Medical Decision Making <JOLYNN Arvizu - Last Filed: 12/04/23 22:49> Medical Records Medical records reviewed: Yes I reviewed the patient's medical records. Lance Inquiry Pt receiving controlled substance: No Vital Signs Vital Signs: 12/04/23 18:16 12/04/23 19:01 12/04/23 20:00 Temperature 98.1 F 98.1 F Temperature Source Oral Oral Pulse Rate 78 Pulse Rate [Apical] 95 H Respiratory Rate 18 19 14 Blood Pressure 128/75 145/89 H Blood Pressure [Right Arm] 136/100 H Blood Pressure Mean [Right Arm] 112 Blood Pressure Source Automatic Cuff Blood Pressure Source [Right Arm] Automatic Cuff Blood Pressure Position Sitting 02 Sat by Pulse Oximetry 100 96 Oxygen Delivery Method Room Air Room Air Room Air Lab Data Lab results reviewed: Yes I reviewed the patient's lab results. Labs: Lab Results 12/04/23 18:19: WBC 10.8, RBC 4.69, Hgb 12.9, Hct 38.4, MCV 81.9, MCH 27.6, MCHC 33.7, RDW 15.2, Plt Count 359, MPV 7.7, Neut % (Auto) 66.8, Lymph % (Auto) 26.2, Lawrence % (Auto) 5.6, Eos % (Auto) 0.7, Baso % (Auto) 0.8, Neut # (Auto) 7.2, Lymph # (Auto) 2.8, Lawrence # (Auto) 0.6, Eos # (Auto) 0.1, Baso # (Auto) 0.1, Sodium 137, Potassium 4.2, Chloride 101, Carbon Dioxide 24, Anion Gap 16.2 H, BUN 17, Creatinine 0.50 L, Estimated Creat Clear 159, Estimated GFR 154, Est GFR ( Amer) 187, Glucose 100, Calcium 9.2, Total Bilirubin 1.4 H, AST 104 H, ALT 27, Alkaline Phosphatase 229 H, Troponin I < 0.01, Total Protein 9.0 H D, Albumin 4.9, Globulin 4.1 H, Albumin/Globulin Ratio 1.2, Lipase 73, HIV 1&2 Antibody Rapid Nonreactive 12/04/23 19:02: Urine Color Yellow, Urine Appearance Clear, Urine pH 6.0, Ur Specific [place] 1.025, Urine Protein Negative, Urine Glucose (UA) Negative, Urine Ketones Trace, Urine Blood Negative, Urine Nitrate Negative, Urine Bilirubin Negative, Urine Urobilinogen 0.2, Ur Leukocyte Esterase Trace, Urine RBC 3-5, Urine WBC 20-50, Ur Squamous Epith Cells 20-50, Urine Bacteria 3+, Urine Mucus 2+, Urine HCG, Qual Negative 12/04/23 18:19 12/04/23 18:19 Response Orders (Tests/Meds): ORDERS Category Date Time Status CBC w/Auto Diff [Complete Blood Count Auto Diff] Stat Lab 12/04/23 18:19 Completed CMP [Comprehensive Metabolic Panel] Stat Lab 12/04/23 18:19 Completed HIV (1&2) Antibody Rapid Stat Lab 12/04/23 18:19 Completed Hep C Ab with Reflex to RNA Stat Lab 12/04/23 18:19 Received Lipase Stat Lab 12/04/23 18:19 Completed Trop I [Troponin I] Stat Lab 12/04/23 18:19 Completed UA [Urinalysis and Microscopic] Stat Lab 12/04/23 19:02 Completed Urine , HCG Qual. Stat Lab 12/04/23 19:02 Completed Urine Culture Stat Micro 12/04/23 19:02 Received MDM Narrative Medical Decision Narrative: In summary patient is a 23-year-old female who presents to the emergency department for evaluation of right sided thoracoabdominal pain. Patient is hemodynamically stable upon arrival, afebrile. Zickel exam is unremarkable nonfocal including no chest pain normal breath sounds no reproducible pain on exam patient currently subjectively pain-free, no right upper quadrant abdominal pain no epigastric tenderness no rebound or guarding or rigidity. With normal bowel sounds.. Differential diagnosis includes pneumonia versus musculoskeletal spasm versus cholecystitis versus gastritis etc. Initial workup will be conducted with hematologic labs plain film chest x-ray POCUS. Initial interventions include Toradol Tylenol. Initial workup reviewed by me shows that patient has normal white count with no shift bilirubin 1.4 and AST of 104 and ALT of 27 and alk phos of 229 and negative troponin and the remainder of her hematologic labs are nonactionable urinalysis that is nitrite and leukocyte Estrace negative microscopic exam shows 3-5 red cells 20-50 white cells 20-50 epithelial cells 3+ bacteria indicating contamination.. Upon repeat evaluation patient remains pain-free.. Given this patient is referred to gastroenterology for further workup of her thoracicoabdominal pain and transaminitis as well as cardiology for further restratification of possible atypical chest pain. <Toni Pa MD - Last Filed: 12/04/23 23:10> Vital Signs Vital Signs: 12/04/23 18:16 12/04/23 19:01 12/04/23 20:00 Temperature 98.1 F 98.1 F Temperature Source Oral Oral Pulse Rate 78 Pulse Rate [Apical] 95 H Respiratory Rate 18 19 14 Blood Pressure 128/75 145/89 H Blood Pressure [Right Arm] 136/100 H Blood Pressure Mean [Right Arm] 112 Blood Pressure Source Automatic Cuff Blood Pressure Source [Right Arm] Automatic Cuff Blood Pressure Position Sitting 02 Sat by Pulse Oximetry 100 96 Oxygen Delivery Method Room Air Room Air Room Air Lab Data Labs: Lab Results 12/04/23 18:19: WBC 10.8, RBC 4.69, Hgb 12.9, Hct 38.4, MCV 81.9, MCH 27.6, MCHC 33.7, RDW 15.2, Plt Count 359, MPV 7.7, Neut % (Auto) 66.8, Lymph % (Auto) 26.2, Lawrence % (Auto) 5.6, Eos % (Auto) 0.7, Baso % (Auto) 0.8, Neut # (Auto) 7.2, Lymph # (Auto) 2.8, Lawrence # (Auto) 0.6, Eos # (Auto) 0.1, Baso # (Auto) 0.1, Sodium 137, Potassium 4.2, Chloride 101, Carbon Dioxide 24, Anion Gap 16.2 H, BUN 17, Creatinine 0.50 L, Estimated Creat Clear 159, Estimated GFR 154, Est GFR ( Amer) 187, Glucose 100, Calcium 9.2, Total Bilirubin 1.4 H, AST 104 H, ALT 27, Alkaline Phosphatase 229 H, Troponin I < 0.01, Total Protein 9.0 H D, Albumin 4.9, Globulin 4.1 H, Albumin/Globulin Ratio 1.2, Lipase 73, HIV 1&2 Antibody Rapid Nonreactive 12/04/23 19:02: Urine Color Yellow, Urine Appearance Clear, Urine pH 6.0, Ur Specific [place] 1.025, Urine Protein Negative, Urine Glucose (UA) Negative, Urine Ketones Trace, Urine Blood Negative, Urine Nitrate Negative, Urine Bilirubin Negative, Urine Urobilinogen 0.2, Ur Leukocyte Esterase Trace, Urine RBC 3-5, Urine WBC 20-50, Ur Squamous Epith Cells 20-50, Urine Bacteria 3+, Urine Mucus 2+, Urine HCG, Qual Negative Response Orders (Tests/Meds): ORDERS Category Date Time Status CBC w/Auto Diff [Complete Blood Count Auto Diff] Stat Lab 12/04/23 18:19 Completed CMP [Comprehensive Metabolic Panel] Stat Lab 12/04/23 18:19 Completed HIV (1&2) Antibody Rapid Stat Lab 12/04/23 18:19 Completed Hep C Ab with Reflex to RNA Stat Lab 12/04/23 18:19 Received Lipase Stat Lab 12/04/23 18:19 Completed Trop I [Troponin I] Stat Lab 12/04/23 18:19 Completed UA [Urinalysis and Microscopic] Stat Lab 12/04/23 19:02 Completed Urine , HCG Qual. Stat Lab 12/04/23 19:02 Completed Urine Culture Stat Micro 12/04/23 19:02 Received MDM Narrative Medical Decision Narrative: In summary patient is a 23-year-old female who presents to the emergency department for evaluation of right sided thoracoabdominal pain. Patient is hemodynamically stable upon arrival, afebrile. Zickel exam is unremarkable nonfocal including no chest pain normal breath sounds no reproducible pain on exam patient currently subjectively pain-free, no right upper quadrant abdominal pain no epigastric tenderness no rebound or guarding or rigidity. With normal bowel sounds.. Differential diagnosis includes pneumonia versus musculoskeletal spasm versus cholecystitis versus gastritis etc. Initial workup will be conducted with hematologic labs plain film chest x-ray POCUS. Initial interventions include Toradol Tylenol. Initial workup reviewed by me shows that patient has normal white count with no shift bilirubin 1.4 and AST of 104 and ALT of 27 and alk phos of 229 and negative troponin and the remainder of her hematologic labs are nonactionable urinalysis that is nitrite and leukocyte Estrace negative microscopic exam shows 3-5 red cells 20-50 white cells 20-50 epithelial cells 3+ bacteria indicating contamination.. Upon repeat evaluation patient remains pain-free.. Given this patient is referred to gastroenterology for further workup of her thoracicoabdominal pain and transaminitis as well as cardiology for further restratification of possible atypical chest pain. I was consulted by the COURTNEY, and we discussed the complexity of the problems being addressed.I approved the treatment and management plan for this patient?s care in the Emergency Department, thus performing a substantive portion of the medical decision making.Signed, Toni Pa MD
--- NOTE | 2023-12-04 18:43 | PC.NURSE ---
ROUNDED ON PT, UPDATED ON POC. CALL LIGHT WITHIN REACH
[2023-12-04 18:52] LABS: Basophils # 0.1 K/mm3 (0-0.2); Basophils % 0.8 % (0.1-2.0); Eosinophils # 0.1 K/mm3 (0.0-0.4); Eosinophils % 0.7 % (0.1-12.0); Hematocrit 38.4 % (37.0-47.0); Hemoglobin 12.9 g/dL (12.2-16.2); Lymphocytes # 2.8 K/mm3 (0.7-4.5); Lymphocytes % 26.2 % (10-50); Mean Corpuscular HGB Conc 33.7 g/dL (31.8-35.4); Mean Corpuscular Hemoglobin 27.6 pg (27.0-31.2); Mean Corpuscular Volume 81.9 fl (81-99); Mean Platelet Volume 7.7 fl (7.4-10.4); Monocytes # 0.6 K/mm3 (0.1-1.0); Monocytes % 5.6 % (1.7-9.3); Neutrophils # 7.2 K/mm3 (1.8-7.8); Neutrophils % 66.8 % (37.0-80.0); Platelet Count 359 K/mm3 (142-424); Red Blood Count 4.69 M/mm3 (4.20-5.40); Red Cell Distribution Width 15.2 % (11.5-17.5); White Blood Count 10.8 K/mm3 (4.8-10.8)
[2023-12-04 18:53] LABS: Albumin Level 4.9 g/dl (3.5-5.0); Chloride 101 mmol/L (98-107); Sodium 137 mmol/L (136-145)
[2023-12-04 18:54] LABS: Potassium 4.2 mmoL/L (3.5-5.1)
[2023-12-04 18:56] LABS: Alanine Aminotransferase 27 U/L (12-78); Albumin/Globulin Ratio 1.2 (1.1-1.8); Alkaline Phosphatase 229 U/L (38-126); Anion Gap 16.2 mEq/L (5-15); Aspartate Amino Transferase 104 U/L (14-36); Bilirubin,Total 1.4 mg/dl (0.2-1.3); Blood Urea Nitrogen 17 mg/dl (7-17); Calcium 9.2 mg/dl (8.4-10.2); Carbon Dioxide 24 mmol/L (22.0-30.0); Creatinine Clearance Estimated 159 mL/min (50-200); Estimated Glomerular Filt Rate 154 ml/min (>60); GFR (African American) 187 ML/MIN (>60); Globulin 4.1 g/dL (1.3-3.2); Glucose 100 mg/dl (74-100); Lipase 73 U/L (23-300)
[2023-12-04 19:01] VITALS: BP 128/75; RESP 19; O2SAT 96
[2023-12-04 19:05] LABS: Microscopic, Urine URINE MICROSCOPIC (MICROSCOPIC)
[2023-12-04 19:15] LABS: Appearance,Urine CLEAR (Clear); Blood, Urine Negative (Negative); Color,Urine YELLOW (Yellow); Glucose,Urine (UA) Negative (Negative); Ketones,Urine TRACE (Negative); Leukocyte Esterase,Urine TRACE (Negative); Nitrate,Urine Negative (Negative); Protein,Urine Negative (Negative); Specific Gravity, Urine 1.025 (1.005-1.030); Urobilinogen,Urine 0.2 EU/dl (0.2)
[2023-12-04 19:16] LABS: HIV (1&2) Antibody Rapid NONREACTIVE (NONREACTIVE)
[2023-12-04 19:18] LABS: Urine Pregnancy, HCG Qual. Negative (Negative)
[2023-12-04 19:19] LABS: Bilirubin,Urine Negative (Negative)
[2023-12-04 19:20] LABS: Troponin I < 0.01 ng/ml (0.00-0.034)
[2023-12-04 19:32] LABS: Squamous Epithelial Cell,Urine 20-50 #/hpf (0-5); WBC,Urine 20-50 #/hpf (0-3)
[2023-12-04 19:33] LABS: Bacteria,Urine 3+ /lpf; Mucus,Urine 2+ /lpf
[2023-12-04 20:00] VITALS: BP 145/89; PULSE 78; RESP 14; TEMP 36.7; O2SAT 99
[2023-12-06 08:51] LABS: HCV Ab Non Reactive (Non Reactive)
== END 2023-12-04 20:01 | disposition home or self-care (01) ==
PROVIDERS: Physician Assistant; Emergency Provider Emergency Medicine; PCP Internal Medicine Adolescent Medicine
DX: R07.9 Chest pain, unspecified (principal)
CPT/HCPCS: 80053; 81001; 81025; 83690; 84484; 85025; 86803; 87086; 87389; 93005; 99283

== ENCOUNTER 2024-03-15 09:55 | Outpatient (CLI) | payer BC, SELFPAY ==
[2024-03-17 17:37] LABS: QuantiFERON-TB Gold Plus Negative (Negative)
== END 2024-03-15 23:59 | disposition home or self-care (01) ==
LOC: LAB 09:57
PROVIDERS: PCP Family Medicine; Visit Provider Family Medicine
DX: Z11.1 Encounter for screening for respiratory tuberculosis (principal)
CPT/HCPCS: 36415; 86480

== ENCOUNTER 2024-08-03 08:21 | Outpatient (CLI) | payer BC, SELFPAY ==
--- OUTSIDE RECORDS SUMMARY | 2024-08-03 08:24 | XMS_ITS | Data Portability ---
Author Organization [facility] ADMIN Address [address] [place] [id number] Assessment No assessment recorded. Plan of Treatment Reminders Order Date Submit Date Provider Last Modified By Organization Details Last Modified Time Details Appointments None record ed. Lab None record ed. Referral None record ed. Procedures None record ed. Surgeries None record ed. Imaging None record ed. Medication Orders None record ed. Patient TargetsNo targets recorded. Patient InstructionsNo instructions recorded. Reason for Referral None Reported. Medical Equipment None Reported. Vitals Date Recorded Body weight Oxygen saturation Oxygen saturation in Arterial blood by Pulse oximetry Heart rate Body temperature Systolic blood pressure Diastolic blood pressure Provider Name and Address Organization Details Last Updated DateTime 5 206998. 09 g 99 % 99 % 77 /min 98.6 [degF] 118 mm[Hg] 77 mm[Hg] [facility] [place] 5 18:25:42 Social History None recorded. Functional Status None recorded. Mental Status None recorded. Family History Nothing Reported. Medical History No medical history recorded. Gynecological HistoryNo gynecological history recorded. Obstetrics History GPAL:G 0 P 0 0 0 0 Past Encounters Encounter ID Performer Location Encounter Start Date Encounter Closed Date Diagnosis/Indication Diagnosis SNOMED-CT Code Diagnosis ICD10 Code Diagnosis Note [id number] Mike Phelps MD [facility] [address] [place] [address] 03/18/2024 18:21:08 03/18/2024 19:27:38 Abdominal pain 90274283 R10.9 Pt looks comfortabl e but she repeatedly notes that she wants to know source of pain. Explained have limited resources in this setting to evaluate and do not even have xray available now. Discussed option of sending to hospital for outpatient xray, but she then mentions would like to have labs. For this reason explained best option would be to go to ER to further evaluate and she opts for this instead. Health Concerns Section Related Observation LastModified by Organization Detai ls LastModified Time None Recorded Concern Status LastModified by Organization Details LastModified Time None Recorded Advance Directives Directive None Recorded Payers Insurance Date Sequence Insurance Name Policy Number Policy Saldana Covered Member ID Saldana Member ID Guarantor Name 03/24/2024 1 [facility] Bill Aurora [id number] Bill Aurora 03/24/2024 1 [place] [id number] Bill Aurora [id number] Bill Aurora Notes Date Note Type Note Provider Name and Address Organization Details Recorded Time 03/18/2024 text/html Few days of nausea, not feeling well. Today developed suprapubic severe pain (10/10), now states it is 8/10. Some possible constipation. Denies possible or urinary symptoms. Mike Phelps MD [address], [place], [address], [facility] - [place] & [place] 03/18/2024 19:38:43 OBGyn Episode No OBEpisode recorded.
[2024-08-03 10:15] LABS: HCG,Quantitative 29 mIU/ml (0-5.42)
[2024-08-04 08:28] LABS: Progesterone 16.1 ng/mL (.)
== END 2024-08-03 23:59 | disposition home or self-care (01) ==
LOC: LAB 08:22
PROVIDERS: PCP Family Medicine; Visit Provider Obstetrics & Gynecology
DX: Z32.01 Encounter for pregnancy test, result positive (principal)
CPT/HCPCS: 36415; 84144; 84702

== ENCOUNTER 2024-08-05 09:34 | Outpatient (CLI) | payer BC, SELFPAY ==
--- OUTSIDE RECORDS SUMMARY | 2024-08-05 09:37 | XMS_ITS | Data Portability ---
Author Organization [facility] ADMIN Address [address] [place] [address] Assessment No assessment recorded. Plan of Treatment [...] Address Organization Details Last Updated DateTime 5 823294. 09 g 99 % 99 % 77 /min 98.6 [degF] 118 mm[Hg] 77 mm[Hg] [facility] & [place] 5 18:25:42 Social History None recorded. Functional Status None recorded. Mental Status None recorded. Family History Nothing Reported. Medical History No medical history recorded. Gynecological HistoryNo gynecological history recorded. Obstetrics History GPAL:G 0 P 0 0 0 0 Past Encounters Encounter ID Performer Location Encounter Start Date Encounter Closed Date Diagnosis/Indication Diagnosis SNOMED-CT Code Diagnosis ICD10 Code Diagnosis Note [id number] Mike Phelps MD [facility] [address] [place] [address] 03/18/2024 18:21:08 03/18/2024 19:27:38 Abdominal pain 06851137 R10.9 Pt looks comfortabl e but she [...] Saldana Member ID Guarantor Name 03/24/2024 1 [facility] [place] [id number] [place] 03/24/2024 1 [place] [id number] A [place] [id number] [place] Notes Date Note Type Note Provider Name and Address Organization Details Recorded Time 03/18/2024 text/html Few days of nausea, not feeling well. Today developed suprapubic severe pain (10/10), now states it is 8/10. Some possible constipation. Denies possible or urinary symptoms. Mike Phelps MD [address], [place], [address], [facility] - [place] & [place] 03/18/2024 19:38:43 OBGyn Episode No OBEpisode recorded.
[2024-08-05 10:57] LABS: HCG,Quantitative 69 mIU/ml (0-5.42)
== END 2024-08-05 23:59 | disposition home or self-care (01) ==
LOC: LAB 09:35
PROVIDERS: PCP Family Medicine; Visit Provider Obstetrics & Gynecology
DX: Z32.01 Encounter for pregnancy test, result positive (principal)
CPT/HCPCS: 36415; 84702

== ENCOUNTER 2024-08-26 15:30 | Outpatient (CLI) | payer BC, SELFPAY ==
[2024-08-26 16:33] LABS: Hematocrit 35.8 % (37.0-47.0); Hemoglobin 10.8 g/dL (12.2-16.2); Immature Granulocytes % 0.3 %; Mean Corpuscular HGB Conc 30.2 g/dL (31.8-35.4); Mean Corpuscular Hemoglobin 24.3 pg (27.0-31.2); Mean Corpuscular Volume 80.4 fl (81-99); Nucleated Red Blood Cells % 0 %; Platelet Count 360 K/mm3 (142-424); Red Blood Count 4.45 M/mm3 (4.20-5.40); Red Cell Distribution Width-SD 49.4 fL; White Blood Count 10.6 K/mm3 (4.8-10.8)
[2024-08-26 17:31] LABS: RPR W/RFX Titers Nonreactive (Nonreactive)
[2024-08-26 17:47] LABS: Hepatitis C Ab Qual. W/ RFX NEGATIVE (Negative)
[2024-08-27 10:41] LABS: Hepatitis B Surface Antigen Negative (Negative)
[2024-08-27 12:01] LABS: Rubella Antibodies, IgG 1.76 index (Immune >0.99)
== END 2024-08-26 23:59 | disposition home or self-care (01) ==
LOC: LAB 15:30
PROVIDERS: PCP Family Medicine; Visit Provider Obstetrics & Gynecology
DX: O09.291 Supervision of pregnancy with other poor reproductive or obstetric history, first trimester (principal); Z3A.26 26 weeks gestation of pregnancy
CPT/HCPCS: 36415; 80074; 85025; 86592; 86762; 86850; 87086; 87340; 87389

== ENCOUNTER 2024-11-02 15:15 | Emergency (ER) | payer BC, SELFPAY ==
--- OUTSIDE RECORDS SUMMARY | 2024-10-14 15:00 | XMS_ITS | Encounter Summary ---
[facility] Address [address] [place] [address] Care Team Providers Care Human Capital Manager Name Role Phone Provider, No Known Primary Care Provider Unavail able Encounter Details Date Type Department Care Team (Late st Contact Info) Description 10/14/2024 3:00 PM EDT Lab [facility] [address] [place] [phone] care, subsequent , second trimester; with history [...] Urine Negative Negative 10/14/2024 6:56 PM EDT [facility] Urine Urine specimen obtained by clean catch procedure / Unknown Collection / Unknown 10/14/2024 2:26 PM EDT 10/14/2024 2:30 PM EDT [facility] - 10/14/2024 6:56 PM EDT Negative [...] URINE ORDERABLES Final Result Performing Organization Address City/[facility]/ZIP Co de Phone Number [facility]
[address] [place] [address], [place] [phone] * Protein / Creatinine Ratio, Urine - Urine, Clean Catch (10/14/2024 2:26 PM EDT) Protein/Creati nine Ratio, Urine 84.1 0.0 - 200.0 mg/G Crea 10/15/2024 12:10 AM EDT [facility] Creatinine, Urine 302.1 mg/dL 10/15/2024 12:10 AM EDT [facility] Total Protein, Urine 25.4 mg/dL 10/15/2024 12:10 AM EDT [facility] Urine Urine specimen obtained by clean catch procedure / Unknown Collection / Unknown 10/14/2024 2:26 PM EDT 10/14/2024 2:30 PM EDT us Nyasia Fraser [facility] URINE ORDERABLES Final Result Performing Organization Address [facility] Co de Phone Number [facility]
[address] [place] [address], [place] [phone] * Urine Culture - Urine, Urine, Clean Catch (10/14/2024 2:26 PM EDT) Urine Culture No growth TAVARES 10/16/2024 3:54 AM EDT [facility] Urine Urine specimen obtained by clean catch procedure / Unknown Collection / Unknown 10/14/2024 2:26 PM EDT 10/14/2024 2:30 PM EDT us Nyasia Fraser [facility] MICROBIOLOGY - GENERAL ORDERA BLES Final Result Performing Organization Address City/[facility]/ZIP Co de Phone Number [facility]
[address] [place] [address], [place] [phone] * Treponema pallidum AB w/Reflex RPR (10/14/2024 2:26 PM EDT) Pathologist [facility] Treponemal AB Total Non-Reacti ve Non-React marianela 10/14/2024 7:24 PM EDT [facility] Blood Venipuncture / Unknown 10/14/2024 2:26 PM EDT 10/14/2024 2:30 PM EDT Narrative [facility] - 10/14/2024 7:24 PM EDT Reactive results will reflex RPR testing. [facility] BLOOD ORDERABLES Final Re sult Performing Organization Address [facility] Co de Phone Number [facility]
[address] [place] [address], [place] [phone] * Hepatitis C Antibody (10/14/2024 2:26 PM EDT) [facility] Hepatitis C Ab Non-Reacti ve Non-Reacti ve 10/14/2024 7:24 PM EDT [facility] Blood Venipuncture / Unknown 10/14/2024 2:26 PM EDT 10/14/2024 2:30 PM EDT [facility] LAB BLOOD ORDERABLES Final Re sult [facility]
[address] [place] [address], [place] [phone] * Hepatitis B Surface Antigen (10/14/2024 2:26 PM EDT) Pathologist [facility] Hepatitis B Surface Ag Non-Reacti ve Non-Reacti ve 10/14/2024 7:20 PM EDT [facility] Blood Venipuncture / Unknown 10/14/2024 2:26 PM EDT 10/14/2024 2:30 PM EDT Nyasia Fraser [facility] LAB BLOOD ORDERABLES Final Re sult Performing Organization Address [facility] Co de Phone Number [facility]
[address] [place] [address], * HIV-1 / O / 2 Ag / Antibody 4th Generation (10/14/2024 2:26 PM EDT) [facility] HIV DUO Non-Reacti ve Non-Reacti ve 10/14/2024 7:24 PM EDT [facility] Blood Venipuncture / Unknown 10/14/2024 2:26 PM EDT 10/14/2024 2:30 PM EDT Narrative [facility] - 10/14/2024 7:24 PM EDT The HIV antibody/antigen combo assay is a qualitative assay for HIV that includes the p24 antigen as well as antibodies to HIV types 1 and 2. This test is intended to be used as a screening assay in the diagnosis of HIV infection in patients over the age of 2. Nyasia Fraser [facility] LAB BLOOD ORDERABLES Final Re sult Performing Organization Address [facility] de Phone Number [facility]
[address] [place] [address], * Rubella Antibody, IgG (10/14/2024 2:26 PM EDT) [facility] Rubella Antibodies, IgG 1.63 Immune >0.99 index 10/15/2024 8:12 AM EDT [facility] Comment: Non-immune <0.90 Equivocal 0.90 - 0.99 Immune >0.99 Blood Venipuncture / Unknown 10/14/2024 2:26 PM EDT 10/14/2024 2:30 PM EDT Narrative [facility] - 10/15/2024 8:12 AM EDT Performed at: 01 - [address] [id number] [employer] Servicer: Lalo Cruz PhD, Phone: [phone] Nyasia BEASLEY LAB BLOOD ORDERABLES Final Re sult Performing Organization Address City/[facility]/ZIP Co de Phone Number [facility] [address] [place] [address], [place] [phone] * Hemoglobin A1c (10/14/2024 2:26 PM EDT) Hemoglobin A1C 5.60 4.80 - 5.60 % 10/14/2024 7:41 PM EDT [facility] Blood Venipuncture / Unknown 10/14/2024 2:26 PM EDT 10/14/2024 2:30 PM EDT Narrative [facility] - 10/14/2024 7:41 PM EDT Hemoglobin A1C Ranges: Increased Risk for Diabetes 5.7% to 6.4% Diabetes >= 6.5% Diabetic Goal < 7.0% us Nyasia Fraser [facility] LAB BLOOD ORDERABLES Final Re sult Performing Organization Address [facility]/ZIP Co de Phone Number [facility]
[address] [place] [address], [place] [phone] * Uric Acid (10/14/2024 2:26 PM EDT) Uric Acid 3.8 2.4 - 5.7 mg/dL 10/14/2024 7:21 PM EDT [facility] Blood Venipuncture / Unknown 10/14/2024 2:26 PM EDT 10/14/2024 2:30 PM EDT Nyasia BEASLEY LAB BLOOD ORDERABLES Final Re sult Performing Organization Address City/[facility]/ZIP Co de Phone Number [facility]
[address] [place] [address], [place] [phone] * Glucose, Random (10/14/2024 2:26 PM EDT) Glucose 90 65 - 99 mg/dL 10/14/2024 7:21 PM EDT [facility] Blood Venipuncture / Unknown 10/14/2024 2:26 PM EDT 10/14/2024 2:30 PM EDT Nyasia BEASLEY LAB BLOOD ORDERABLES Final Re sult [facility]
[address] [place] [address], * Urine Drug Screen - Urine, Clean Catch (10/14/2024 2:26 PM EDT) Pathologist [facility] THC, Screen, Urine Negative Negative 2024 6:31 PM EDT [facility] Phencyclidine (PCP), Urine Negative Negative 10/14/2024 6:31 PM EDT [facility] Cocaine Screen, Urine Negative Negative 10/14/2024 6:31 PM EDT [facility] Methamphetamine, Ur Negative Negative 10/14 6:31 PM EDT [facility] Opiate Screen Negative Negative 10/14/2024 6:31 PM EDT [facility] Amphetamine Screen, Urine Negative Negative 10/14/2024 6:31 PM EDT [facility] Benzodiazepine Screen, Urine Negative Negative 10/14/2024 6:31 PM EDT [facility] Tricyclic Antidepressants Screen Negative Negative 10/14/2024 6:31 PM EDT [facility] Methadone Screen, Urine Negative Negative 10/14/2024 6:31 PM EDT [facility] Barbiturates Screen, Urine Negative Negative 10/14/2024 6:31 PM EDT [facility] Oxycodone Screen, Urine Negative Negative 10/14/2024 6:31 PM EDT [facility] Buprenorphine, Screen, Urine Negative Negative 10/14/2024 6:31 PM EDT [facility] Urine Urine specimen obtained by clean catch procedure / Unknown Collection / Unknown 10/14/2024 2:26 PM EDT 10/14/2024 2:30 PM EDT Narrative [facility] - 10/14/2024 6:31 PM EDT Cutoff [...] used. Nyasia BEASLEY URINE ORDERABLES Final Result [facility]
[address] [place] [address], [place] [phone] * Lactate Dehydrogenase (10/14/2024 2:26 PM EDT) LDH 175 135 - 214 U/L 10/14/2024 7:21 PM EDT [facility] Blood Venipuncture / Unknown 10/14/2024 2:26 PM EDT 10/14/2024 2:30 PM EDT [employer] [facility] BLOOD ORDERABLES Final Re sult [facility]
[address] [place] [address], [place] [phone] * Chlamydia trachomatis, Neisseria gonorrhoeae, Trichomonas vaginalis, PCR - Urine, Urine, Clean Catch (10/14/2024 2:26 PM EDT) Pathologist [facility] Chlamydia trachomatis, TONIA Negative Negative 10/18/2024 6:08 AM EDT [facility] Gonococcus by TONIA Negative Negative 10/18/2024 6:08 AM EDT [facility] Trichomonas vaginosis Negative Negative 10/18/2024 6:08 AM EDT [facility] Urine Urine specimen obtained by clean catch procedure / Unknown Collection / Unknown 10/14/2024 2:26 PM EDT 10/14/2024 2:30 PM EDT Narrative [facility] - 10/18/2024 6:08 AM EDT Performed at: [address] [id number] [employer]: Roxanne Walter MD, Phone: [phone] us Nyasia BEASLEY MICROBIOLOGY - GENERAL ORDERA BLES Final Result Performing Organization Address City/State/[facility] Co de Phone Number [facility] [address] [place] [address], * (ABNORMAL) CBC (No Diff) (10/14/2024 2:26 PM EDT) [facility] WBC 8.84 3.40 - 10.80 10*3/mm3 10/14/2024 6:41 PM EDT [facility] RBC 4.29 3.77 - 5.28 10*6/mm3 10/14/2024 6:41 PM EDT [facility] Hemoglobin 11.3(L) 12.0 - 15.9 g/dL 10/14/2024 6:41 PM EDT [facility] Hematocrit 35.9 34.0 - 46.6 % 10/14/2024 6:41 PM EDT [facility] MCV 83.7 79.0 - 97.0 fL 10/14/2024 6:41 PM EDT [facility] MCH 26.3(L) 26.6 - 33.0 pg 10/14/2024 6:[facility] MCHC 31.5 31.5 - 35.7 g/dL 10/14/2024 6:41 PM EDT [facility] RDW 17.1(H) 12.3 - 15.4 % 10/14/2024 6:41 PM EDT [facility] RDW-SD 51.1 37.0 - 54.0 fl 10/14/2024 6:41 PM EDT [facility] MPV 10.4 6.0 - 12.0 fL 10/14/2024 6:41 PM EDT [facility] Platelets 306 140 - 450 10*3/mm3 10/14/2024 6:41 PM EDT [facility] Blood Venipuncture / Unknown 10/14/2024 2:26 PM EDT 10/14/2024 2:30 PM EDT [facility] BLOOD ORDERABLES Final Re sult Performing Organization Address City/[facility]/ZIP Co de Phone Number [facility]
[address] [place] [address], [place] [phone] * AST (10/14/2024 2:26 PM EDT) AST (SGOT) 12 1 - 32 U/L 10/14/2024 7:21 PM EDT [facility] Blood Venipuncture / Unknown 10/14/2024 2:26 PM EDT 10/14/2024 2:30 PM EDT [facility] BLOOD ORDERABLES Final Re sult [facility]
[address] [place] [address], [place] [phone] * ABO / Rh (10/14/2024 2:26 PM EDT) ABO Type O 10/14/2024 3:13 PM EDT [facility] RH type Positive 10/14/2024 3:13 PM EDT [facility] Blood Venipuncture / Unknown 10/14/2024 2:26 PM EDT 10/14/2024 2:30 PM EDT us Inlogan Bargere CNM BLOOD BANK TEST ORDERABLES Fi nal Result [facility]
[address] [place] [address], [place] [phone] * Antibody Screen (10/14/2024 2:26 PM EDT) Antibody Screen Negative 10/14/2024 3:29 PM EDT [facility] Blood Venipuncture / Unknown 10/14/2024 2:26 PM EDT 10/14/2024 2:30 PM EDT us Inlogan Fraser CNM BLOOD BANK TEST ORDERABLES Fi nal Result Performing Organization Address [facility]/ZIP Co de Phone Number [facility]
[address] [place] [address], [place] [phone] * ALT (10/14/2024 2:26 PM EDT) ALT (SGPT) 13 1 - 33 U/L 10/14/2024 7:21 PM EDT [facility] Blood Venipuncture / Unknown 10/14/2024 2:26 PM EDT 10/14/2024 2:30 PM EDT Inlogan Fraser CNM LAB BLOOD ORDERABLES Final Re sult [facility]
[address] [place] [address], [place] [phone] * Lab Collection Processing (10/14/2024 2:26 PM EDT) Blood Venipuncture / Unknown 10/14/2024 2:26 PM EDT 10/14/2024 2:30 PM EDT Nyasia Fraser CNM LAB BLOOD ORDERABLES Final Re sult [facility]
[address] [place] [address], documented in this encounter Visit Diagnoses Diagnosis care, subsequent , second trimester with history of , antepartum 14 weeks gestation of Second trimester state, incidental documented in this encounter Care Teams Human Capital Manager Relationship Specialty Start Date End Date Provider, [place] [address] PCP - General 06/10/22 documented as of this encounter
[2024-11-02 15:30] VITALS: BP 138/72; PULSE 86; RESP 18; TEMP 36.8; O2SAT 99; BMI 39.9
--- NOTE | 2024-11-02 15:30 | XR_ITS ---
FINAL REPORT CLINICAL HISTORY: Left foot pain after falling, lateral sided pain and swelling FINDINGS: AP, oblique and lateral views of the left foot were obtained. There is no acute fracture or dislocation. The joint spaces are preserved. Soft tissues are unremarkable. IMPRESSION: No acute osseous abnormality of the left foot. Reviewed, Interpreted and Dictated by Charisma Parra MD Transcribed by Daisy Petersen Authenticated and . [facility]
--- NOTE | 2024-11-02 15:30 | XR_ITS ---
FINAL REPORT CLINICAL HISTORY: left ankle pain from fall, lateral sided swelling and pain FINDINGS: AP, oblique, and lateral views of the left ankle were obtained. There is no fracture or dislocation. The ankle mortise is intact. Soft tissues are unremarkable. IMPRESSION: No acute osseous abnormality of the left ankle. Reviewed, Interpreted and Dictated by Charisma Parra MD Transcribed by Daisy Petersen Authenticated and . [facility]
--- NOTE | 2024-11-02 15:36 | ED_ITS ---
<Statement entered by Maddie Bella DO - 11/05/24 00:34> I was consulted by the COURTNEY, and we discussed the complexity of problems being addressed. I approve the treatment and management plan for this patient's care in the emergency department, thus performing a substantial portion of the medical decision making. Maddie Bella DO Discharge Plan Disposition Patient Disposition: Home, Self-Care Prescriptions Prescriptions: No Action ondansetron 4 mg tablet,disintegrating 4 mg PO Q6H Qty: 30 2RF promethazine 12.5 mg tablet 12.5 mg PO TID Qty: 90 0RF Referrals Follow up/Referrals: Andreea Agudelo [Primary Care Provider, Medical] - See instructions Activity Restrictions/Add. Instructions Additional Instructions/Restrictions: You can take up to 4,00mg of tylenol in a day for pain if needed. Use heat and ice as well for comfort. Slowly put weight on your foot as tolerated. You can keep the alphonse wrap on as needed for comfort. Clinical Impressions Clinical Impression: Ankle sprain Stand Alone Forms Stand Alone Forms: Work/School Release Print Language Print Language: Maltese Discharge ED Provider: Maddie Bella General Adult HPI <Giovanna Rogers - Last Filed: 11/02/24 15:56> General Chief complaint: Extremity Injury, Lower Stated complaint: AO 11/02/24 L Ankle Pain Time Seen by Provider: 11/02/24 15:44 Mode of Arrival: Ambulatory Source of Information: Patient Description of Symptoms (Recalled from ER Triage Doc. by RN): Pt presents with c/o left ankle. pt states she was walking and tripped. Ankle noted to be swollen, strong pulse, brisk cap refill. Pt denies LOC, BT. Pt states she is 16 weeks pregntant History of Present Illness HPI narrative: 24-year-old female presents the emergency department with complaints of left ankle pain after tripping and falling prior to arrival. She states she is approximately 16 weeks . She denies hitting her abdomen. She denies any vaginal bleeding or abdominal cramping since the injury. She has not take any medication for pain and currently is declining any pain medications Related Data Previous Rx's ?Medication ?Instructions ?Recorded ondansetron 4 mg disintegrating 4 mg PO Q6H #30 tabs 0 10/01/24 tablet promethazine 12.5 mg tablet 12.5 mg PO TID #90 tabs Allergies Allergy/AdvReac Type Severity Reaction Status Date / Time No Known Allergies Allergy Verified 10/13/24 13:44 PFSH <Giovanna Rogers - Last Filed: 11/02/24 15:56> [facility] Disclaimer: The information contained in this section may have been updated after the patient was seen, as this information can be updated by other users. Medical History Maternal obesity affecting , antepartum History of stillbirth in currently patient at 26 weeks History of pre-eclampsia in prior , currently Status post normal vaginal delivery Anemia affecting Anxiety Depression Forceps delivery with baby delivered Forcep assisted vaginal delivery of breech baby Stillbirth with antepartum Dizziness Obesity (BMI 30.0-34.9) Surgical History History of thumb surgery Family History Other Diabetes Social History Smoking Status: Never smoker alcohol intake: never substance use type: denies use current occupational status: employed Travel in the last 8 weeks?: None current occupation: [employer] employee Have you lived/traveled outside US in past 30 days?: No Contact w/someone who lives/traveled outside US past 30 days?: No Exposure to someone with infectious disease in past 14 days?: No Do you have a fever (greater than 100.4 F or 38 C)?: No Have you tested positive for COVID-19?: No Exposed to someone with COVID-19 in past 14 days?: No Do you have a sore throat?: No Do you have a cough?: No Do you have any weakness?: No Do you have any diarrhea?: No Are you experiencing any unusual bleeding?: No Do you have any muscle aches/pain?: No Do you have any abdominal pain?: No Are you experiencing loss of taste or smell?: No Other Medical History Have you received the Flu Vaccine for this season: No Have you received the Pneumonia Vaccine: No <Giovanna Rogers - Last Filed: 11/02/24 15:56> ROS Obtained: Yes other Musculoskeletal Musculoskeletal: Reports arthralgias, Reports joint swelling and Reports limited range of motion <Maddie Bella - Last Filed: 11/05/24 00:35> ROS Obtained: Yes All systems reviewed & no additional complaints except as documented and Yes Systems reviewed as appropriate & no additional complaints except as documented Physical Exam <Giovanna Rogers - Last Filed: 11/02/24 15:56> Narrative Physical exam: General: Awake, aware, in no acute distress HEENT: Normocephalic, no evidence of trauma CV: RRR, no murmurs, rubs, or gallops Pulm: CTA bilaterally with no rhonchi, rales, wheezes ABD: Nontender, no swelling, guarding, or rebound tenderness Psych, appropriate mood and affect Musculoskeletal: Sensations intact with 2+ pulses in all extremities. Patient does have swelling to the lateral aspect of her left ankle. No ecchymosis or erythema present. Range of motion limited due to pain. General General appearance: alert <Maddie BellaDO - Last Filed: 11/05/24 00:35> Respiratory Respiratory exam: Present normal lung sounds bilaterally; Absent respiratory distress Cardiovascular Cardiovascular exam: Present regular rate and normal rhythm Neurological Exam Neurological exam: Present alert and oriented X3 Medical Decision Making <Giovanna Rogers - Last Filed: 11/02/24 15:56> Medical Records Screening: Per USPSTF and CDC recommendations, given the prevalence of disease in our region, it is our hospital?s policy to screen for HIV and viral Hepatitis for all patients aged 18 and over and those with ongoing risk factors. Vital Signs: 11/02/24 15:30 11/02/24 17:20 Temperature 98.2 F 97.8 F Temperature Source Temporal Artery Scan Oral Pulse Rate 75 Pulse Rate [Right] 86 Respiratory Rate 18 16 Blood Pressure 130/74 Blood Pressure [Right Arm] 138/72 Blood Pressure Mean [Right Arm] 94 Blood Pressure Source Automatic Cuff Blood Pressure Source [Right Arm] Automatic Cuff Blood Pressure Position Supine Blood Pressure Position [Right Arm] Sitting 02 Sat by Pulse Oximetry 99 Oxygen Delivery Method Room Air Room Air Orders (Tests/Meds): ORDERS Category Date Time Status POCUS Point of Care (ER Only) Stat Exams 11/02/24 17:07 Completed XR ankle LT min 3V Stat Exams 11/02/24 15:30 Completed XR foot LT min 3V Stat Exams 11/02/24 15:30 Completed Medical Decision Narrative: Initial impression of presenting illness: 24-year-old female that is approximately 16 weeks presents emergency department complaints of left pain after tripping and falling prior to arrival. She denies hitting her abdomen when she fell. She also denies abdominal pain, cramping, vaginal bleeding. She states she has not take any medication for pain prior to arrival and declines any pain medication at this time. Differential diagnosis includes but is not limited to: Fracture, dislocation, sprain Patient arrives hemodynamically stable, afebrile, without respiratory distress with vital signs interpreted by myself. Initial physical exam reveals swelling and tenderness on palpation to the lateral aspect of patient's left ankle. Sensations intact with 2+ pulses. Range of motion limited due to pain. No ecchymosis or erythema present. Rest of exam is unremarkable. Initial diagnostic plan: X-ray of left ankle and foot, heart tones, ice packs for swelling <Maddie Bella, DO - Last Filed: 11/05/24 00:35> Lance Inquiry Pt receiving controlled substance: No Vital Signs: 11/02/24 15:30 11/02/24 17:20 Temperature 98.2 F 97.8 F Temperature Source Temporal Artery Scan Oral Pulse Rate 75 Pulse Rate [Right] 86 Respiratory Rate 18 16 Blood Pressure 130/74 Blood Pressure [Right Arm] 138/72 Blood Pressure Mean [Right Arm] 94 Blood Pressure Source Automatic Cuff Blood Pressure Source [Right Arm] Automatic Cuff Blood Pressure Position Supine Blood Pressure Position [Right Arm] Sitting 02 Sat by Pulse Oximetry 99 Oxygen Delivery Method Room Air Room Air Lab Data Lab results reviewed: Yes I reviewed the patient's lab results. Orders (Tests/Meds): ORDERS Category Date Time Status POCUS Point of Care (ER Only) Stat Exams 11/02/24 17:07 Completed XR ankle LT min 3V Stat Exams 11/02/24 15:30 Completed XR foot LT min 3V Stat Exams 11/02/24 15:30 Completed Medical Decision Narrative: Initial impression of presenting illness: 24-year-old female that is approximately 16 weeks presents emergency department complaints of left pain after tripping and falling prior to arrival. She denies hitting her abdomen when she fell. She also denies abdominal pain, cramping, vaginal bleeding. She states she has not take any medication for pain prior to arrival and declines any pain medication at this time. Differential diagnosis includes but is not limited to: Fracture, dislocation, sprain Patient arrives hemodynamically stable, afebrile, without respiratory distress with vital signs interpreted by myself. Initial physical exam reveals swelling and tenderness on palpation to the lateral aspect of patient's left ankle. Sensations intact with 2+ pulses. Range of motion limited due to pain. No ecchymosis or erythema present. Rest of exam is unremarkable. Initial diagnostic plan: X-ray of left ankle and foot, heart tones, ice packs for swelling Patient's x-rays were reviewed and interpreted by myself and showed no acute fractures or other acute bony pathology was radiology agreed. Bedside ultrasound was performed patient had appropriate heart rate. At this time, patient was discharged home in stable condition return precautions were discussed and patient was sent with symptomatic management. Critical Care <Maddie Bella, DO - Last Filed: 11/05/24 00:35> Critical Care Time Critical Care Time: No
--- OUTSIDE RECORDS SUMMARY | 2024-11-02 15:47 | XMS_ITS | Clinical Summary ---
Author Organization [facility] Address [address] [place] [address] Care Team Providers Care Computer Software Engineer Name Role Phone Provider, No Known Primary Care Provider Unavail able Allergies No known active allergies Medications Vit-Fe Fumarate-FA ( ) 27-1 MG tablet tablet Take 1 tablet by mouth Daily. Active FeroSul 325 (65 Fe) MG tablet 3 Active sertraline (ZOLOFT) 25 MG tablet Take 1 tablet by mouth Daily. 3 Active Magnesium Oxide -Mg Supplement 400 (240 Mg) MG tablet 3 Active ondansetron ODT (ZOFRAN-ODT) 4 MG disintegrating tablet 3 Active promethazine (PHENERGAN) 12.5 MG tablet 3 Active butalbital-acetamin ophen-caffeine (Fioricet) 50-300-40 MG capsule capsuleIndications: Intractable headache, unspecified chronicity pattern, unspecified headache type Take 1 capsule by mouth Every 4 (Four) Hours As Needed (1 to 2 tablets as needed for headache.). 30 capsule 4 Active Active Problems Problem Noted Date Diagnosed Date Postural hypotension 04/22/2023 Third trimester 03/25/2023 Assessment & Plan (04/02/2023 8:28 AM EST): Patient with prayer NIPT that returned with an increased risk of Tri ploidy and a repeat NIPT that came with no result. Ultrasound today demonstrates a fetus with no abnormality seen including no markers for trisomy or Booker. At this point I believe the risk of chromosomal abnormalities to be very low. I see no need to alter any of her obstetric recommendations. We would start twice-weekly testing due to the previous intrauterine demise and history of severe preeclampsia. 01/01/2023 Abnormal genetic test during Assessment & Plan (04/02/2023 8:30 AM EST): Patient with prior NIPT that returned with an increased risk of Tri ploidy and a repeat NIPT that came with no result. Ultrasound today demonstrates a fetus with no abnormality seen including no markers for trisomy or Booker. At this point I believe the risk of chromosomal abnormalities to be very low. I see no need to alter any of her obstetric recommendations. We would start twice-weekly testing due to the previous intrauterine demise and history of severe preeclampsia. Assessment & Plan (03/05/2023 8:45 AM EST): Patient with original NIPT concerning for triploidy and second NIPT had no result for low fraction. Patient had previously declined diagnostic testing with amniocentesis Assessment & Plan (02/05/2023 8:05 AM EST): Patient with original NIPT concerning for triploidy and second NIPT had no result for low fraction. Patient had previously declined diagnostic testing with amniocentesis. Assessment & Plan (01/01/2023 8:11 AM EST): Triploidy is a rare chromosomal abnormality resulting from the presence of an additional set of chromosomes in the cell for a total of 69 chromosomes rather than the normal 46 chromosomes per cell. The triplication of the chromosomes is caused by the fertilization of an egg by two sperms or the fertilization of an egg by a sperm that has an extra set of chromosomes or by the fertilization of an egg that has an extra set of chromosomes by a normal sperm. Infants with triploidy usually are miscarried early in the . Infants affected with complete triploidy suffer from growth restriction and multiple defects including cardiac defects, neural tube defects, cystic kidneys and facial abnormalities including widely spaced eyes and low-set malformed ears. The placenta in triploidy may be immature, large and filled with cysts. If the continues to term, the most often dies within the first days of life. A few affected individuals have been reported to have survived to adulthood, but suffered from developmental delay, learning difficulties, seizures, hearing loss and other abnormalities and probably actually represented mosaic triploidy. Cell-free DNA is considered a screening test. This test has an excellent sensitivity and specificity but given the low prevalence of disease, can have a poor predictive value. Based on this patient's age at the time of delivery, her early midtrimester positive predictive value for triploidy with a positive cell-free DNA evaluation is 1% (www.perinatalquality.org). Definitive diagnosis should be offered or confirmation with cord blood testing performed. I noted options in genetic testing could include 1st trimester chorionic villous sampling (CVS). This would provide information concerning the chromosomal complement but not the presence of a open neural tube defect. The procedure-related loss rate with CVS was quoted as 1%. I then discussed options of genetic testing in the 2nd trimester including transabdominal amniocentesis for the determination of chromosomal complement as well as amniotic fluid alpha-fetoprotein for the evaluation of a open neural tube defect. A procedure-related loss rate of 1 in 500 would be quoted with midtrimester amniocentesis. The chromosome result is 99.5% accurate and requires approximately 7-10 days to return. Amniotic fluid AFP measurement also detects 95% of open neural tube defects. I also discussed the clinical utility of ultrasound for the detection of aneuploidy as well as open neural tube defects. Patient informed of normal ultrasound findings today. Amniocentesis was again discussed and the procedure was explained including the risk of loss. After careful consideration the patient declines amniocentesis. We would recommend sending cord bloods for karyotype at delivery. Hx of preeclampsia, prior pr egnancy, currently , first trimester 11/20/2022 Assessment & Plan (01/01/2023 8:09 AM EST): Patient returns today for anatomic survey. Patient had a previous IUFD at 26 weeks thought to be secondary to preeclampsia. Her preeclampsia labs and anticardiolipin antibodies were all normal. The patient does have persistently mildly elevated LFTs. We will check these again today and if elevated will refer the patient to GI for evaluation. Patient was counseled extensively regarding preeclampsia signs and symptoms and will contact her physician immediately if she notices any signs or symptoms of preeclampsia. Owing to the patient's previous loss we will rescan again in 4 weeks to assess growth and maternal wellbeing. Assessment & Plan (11/20/2022 11:46 AM EDT): We reviewed the increased risk of recurrent preeclampsia and the general recommendation for low dose ASA daily from 12 weeks GA through delivery. Ms Watts is starting this today. I also recommend APLS testing, which I have ordered today. Though a true diagnosis of APLS requires a positive antibody twice 12 weeks apart, I recommend starting prophylactic lovenox if any of the testing is positive initially. I have also sent a baseline CBC and PIH labs and supplied the patient with a kit for 24 hour urine collection. We will see Ms Watts back at 18 weeks GA for detailed anatomic survey History of IUFD 11/20/2022 Assessment & Plan (04/02/2023 8:27 AM EST): Patient returns today for follow-up. Previous was complicated by severe preeclampsia at 26 weeks gestation with an intrauterine demise. Patient reports no complications or problems currently. Ultrasound today demonstrates a normaly grown fetus with no abnormality seen. In particular there were no markers for trisomy. Amniotic fluid volume is normal and umbilical artery Dopplers are normal. BPP was 8 out of 8 today. With patient's prior IUFD we would recommend twice-weekly testing starting at 32 weeks gestation. I believe this can be done at the local OB office. If no other complications arise we would consider induction of labor at 38 to 39 weeks gestation. If the patient develops signs or symptoms of preeclampsia we would recommend delivery earlier. Patient was counseled extensively regarding movement and will contact her provider immediately if she notices any decreased movement. Assessment & Plan (03/05/2023 8:46 AM EST): Growth today shows overall growth at the 69 percentile and AC at the 68th percentile. Amniotic fluid normal and umbilical artery Dopplers are normal. Plan for follow-up growth in 4 weeks. Discussed testing around 32 weeks. Assessment & Plan (02/05/2023 8:16 AM EST): Previously at 26 weeks. Today's ultrasound completes anatomy and shows normal growth. Plan for repeat growth ultrasound in 4 weeks IUFD at 20 weeks or more of gestation 06/10/2022 Encounters Date Type Department Care Team Description 10/14/2024 3:00 PM EDT Lab [facility] [address] [place] [address] care, subsequent , second trimester; with history of , antepartum; 14 weeks gestation of ; Second trimester 10/14/2024 Travel 08/05/2024 Telephone [facility] [address] [place] [address] Provider, No Known from Last 3 Months Social History Tobacco Use Types Packs/Day Years Used Date Smoking Tobacco: Never Passive Smoke Exposure: Never Smokeless Tobacco: Never Tobacco Cessation:Counseling Given: No Alcohol Use Standard Drinks/Week Comments Never 0 [...] on file Sexual Orientation Not on file Last Filed Vital Signs Vital Sign Reading Time Taken Comments Blood Pressure 127/73 04/23/2023 10:13 PM EDT Pulse 78 04/23/2023 10:13 PM EDT Temperature 36.7 C (98.1 F) 03/25/2023 5:56 PM EST Respiratory Rate 18 04/23/2023 8:26 PM EDT Oxygen Saturation 99% 04/23/2023 8:26 PM EDT Inhaled Oxygen Concentration - - Weight 101 kg (222 lb) 04/23/2023 8:23 PM EDT Height 162.6 cm (5' 4 ) 04/23/2023 8:23 PM EDT Body Mass Index 38.11 04/23/2023 8:23 PM EDT Plan of Treatment Health Maintenance Due Date Last Done Comments Annual Gynecologic Pelvic and Breast Exam 2001 MENINGOCOCCAL B VACCINE (1 of 2 - Standard) 2017 PAP SMEAR 2022 ANNUAL PHYSICAL 10/21/2022 INFLUENZA VACCINE 09/10/2024 01/29/2022, , 04/14/2015, Additional history exists TDAP/TD VACCINES (3 - Td or Tdap) 03/12/2033 03/12/2023, 09/14/2012 HPV VACCINES Completed 04/14/2015, 02/15/2014 CHLAMYDIA SCREENING Discontinued 10/14/2024 HEPATITIS C SCREENING Completed 10/14/2024 Pneumococcal Vaccine 0-49 Aged Out No longer eligible based on patient's age to complete this topic Procedures Procedure Name Priority Date/Time Associated Diagnosis Comments ABO/RH Routine 10/14/2024 2:26 PM EDT 14 weeks gestation of Second trimester ANTIBODY SCREEN Routine 10/14/2024 2:26 PM EDT 14 weeks gestation of Second trimester FENTANYL, URINE Routine 10/14/2024 2:26 PM EDT 14 weeks gestation of Second trimester PROTEIN / CREATININE RATIO, URINE Routine 10/14/2024 2:26 PM EDT with history of , antepartum TREPONEMA PALLIDUM AB W/REFLEX RPR Routine 10/14/2024 2:26 PM EDT 14 weeks gestation of Second trimester HEPATITIS C ANTIBODY Routine 10/14/2024 2:26 PM EDT 14 weeks gestation of Second trimester HEPATITIS B SURFACE ANTIGEN Routine 10/14/2024 2:26 PM EDT 14 weeks gestation of Second trimester HIV-1/O/2 ANTIGEN/ANTIBODY Routine 10/14/2024 2:26 PM EDT 14 weeks gestation of Second trimester RUBELLA ANTIBODY, IGG Routine 10/14/2024 2:26 PM EDT 14 weeks gestation of Second trimester HEMOGLOBIN A1C Routine 10/14/2024 2:26 PM EDT 14 weeks gestation of Second trimester URIC ACID Routine 10/14/2024 2:26 PM EDT with history of , antepartum GLUCOSE, RANDOM Routine 10/14/2024 2:26 PM EDT 14 weeks gestation of Second trimester URINE DRUG SCREEN Routine 10/14/2024 2:2 6 PM EDT 14 weeks gestation of Second trimester LACTATE DEHYDROGENASE Routine 10/14/2024 2:26 PM EDT with history of , antepartum CBC (NO DIFF) Routine 10/14/2024 2:26 PM EDT 14 weeks gestation of Second trimester AST Routine 10/14/2024 2:26 PM EDT with history of , antepartum ALT Routine 10/14/2024 2:26 PM EDT with history of , antepartum LAB COLLECTION PROCESSING Routine 10/14/2024 2:26 PM EDT care, subsequent , second trimester URINE CULTURE Routine 10/14/2024 2:26 PM EDT 14 weeks gestation of Second trimester CHLAMYDIA TRACHOMATIS, NEISSERIA GONORRHOEAE, TRICHOMONAS VAGINALIS, PCR Routine 10/14/2024 2:26 PM EDT 14 weeks gestation of Second trimester from Last 3 Months Results * Treponema pallidum AB w/Reflex RPR (10/14/2024 2:26 PM EDT) Treponemal AB Total Non-Reacti ve Non-React marianela 10/14/2024 7:24 PM EDT [facility] Blood Venipuncture / Unknown 10/14/2024 2:26 PM EDT 10/14/2024 2:30 PM EDT Narrative [facility] - 10/14/2024 7:24 PM EDT Reactive results will reflex RPR testing. [facility] B[facility]OD ORDERABLES Final Re sult Performing Organization Address City/[facility]/ZIP Co de Phone Number [facility]
[address] [place] [address], * Lab Collection Processing (10/14/2024 2:26 PM EDT) Blood Venipuncture / Unknown 10/14/2024 2:26 PM EDT 10/14/2024 2:30 PM EDT [facility] LAB BLOOD ORDERABLES Final Re sult [facility]
[address] [place] [address], * HIV-1 / O / 2 Ag / Antibody 4th Generation (10/14/2024 2:26 PM EDT) HIV DUO Non-Reacti ve Non-Reacti ve 10/14/2024 7:24 PM EDT [facility] Blood Venipuncture / Unknown 10/14/2024 2:26 PM EDT 10/14/2024 2:30 PM EDT Narrative [facility] - 10/14/2024 7:24 PM EDT The HIV antibody/antigen combo assay is a qualitative assay for HIV that includes the p24 antigen as well as antibodies to HIV types 1 and 2. This test is intended to be used as a screening assay in the diagnosis of HIV infection in patients over the age of 2. Nyasia Fraser CNM LAB BLOOD ORDERABLES Final Re sult [facility]
[address] [place] [address], [place] [phone] * Chlamydia trachomatis, Neisseria gonorrhoeae, Trichomonas vaginalis, PCR - Urine, Urine, Clean Catch (10/14/2024 2:26 PM EDT) Chlamydia trachomatis, TONIA Negative Negative 10/18/2024 6:08 AM EDT [facility] Gonococcus by TONIA Negative Negative 10/18/2024 6:08 AM EDT [facility] Trichomonas vaginosis Negative Negative 10/18/2024 6:08 AM EDT [facility] Urine Urine specimen obtained by clean catch procedure / Unknown Collection / Unknown 10/14/2024 2:26 PM EDT 10/14/2024 2:30 PM EDT Narrative [facility] - 10/18/2024 6:08 AM EDT Performed at: [facility] [id number] Ambulatory Analyst: Roxanne Walter MD, Phone: [phone] us Nyasia Fraser CNM MICROBIOLOGY - GENERAL ORDERA BLES Final Result [facility] [address] [place] [address], [place] [phone] * Hepatitis C Antibody (10/14/2024 2:26 PM EDT) Hepatitis C Ab Non-Reacti ve Non-Reacti ve 10/14/2024 7:24 PM EDT [facility] Blood Venipuncture / Unknown 10/14/2024 2:26 PM EDT 10/14/2024 2:30 PM EDT Pauldmbryce Niesha Bria [facility] LAB BLOOD ORDERABLES Final Re sult Performing Organization Address [facility]/ZIP Co de Phone Number [facility]
[address] [place] [address], * Protein / Creatinine Ratio, Urine - Urine, Clean Catch (10/14/2024 2:26 PM EDT) Pathologist [facility] Protein/Creati nine Ratio, Urine 84.1 0.0 - 200.0 mg/G Crea 10/15/2024 12:10 AM EDT [facility] Creatinine, Urine 302.1 mg/dL 10/15/2024 12:10 AM EDT [facility] Total Protein, Urine 25.4 mg/dL 10/15/2024 12:10 AM EDT [facility] Urine Urine specimen obtained by clean catch procedure / Unknown Collection / Unknown 10/14/2024 2:26 PM EDT 10/14/2024 2:30 PM EDT Nyasia Fraser [facility] URINE ORDERABLES Final Result Performing Organization Address [facility] Co de Phone Number [facility]
[address] [place] [address], [place] [phone] * Urine Drug Screen - Urine, Clean Catch (10/14/2024 2:26 PM EDT) Pathologist [facility] THC, Screen, Urine Negative Negative 2024 6:31 PM EDT [facility] Phencyclidine (PCP), Urine Negative Negative 10/14/2024 6:31 PM EDT [facility] Cocaine Screen, Urine Negative Negative 10/14/2024 6:31 PM EDT [facility] Methamphetamine, Ur Negative Negative 10/14 6:31 PM EDT [facility] Opiate Screen Negative Negative 10/14/2024 6:31 PM EDT [facility] Amphetamine Screen, Urine Negative Negative 10/14/2024 6:31 PM EDT [facility] Benzodiazepine Screen, Urine Negative Negative 10/14/2024 6:31 PM EDT [facility] Tricyclic Antidepressants Screen Negative Negative 10/14/2024 6:31 PM EDT [facility] Methadone Screen, Urine Negative Negative 10/14/2024 6:31 PM EDT [facility] Barbiturates Screen, Urine Negative Negative 10/14/2024 6:31 PM EDT [facility] Oxycodone Screen, Urine Negative Negative 10/14/2024 6:31 PM EDT [facility] Buprenorphine, Screen, Urine Negative Negative 10/14/2024 6:31 PM EDT [facility] Urine Urine specimen obtained by clean catch procedure / Unknown Collection / Unknown 10/14/2024 2:26 PM EDT 10/14/2024 2:30 PM EDT [facility] - 10/14/2024 6:31 PM EDT Cutoff [...] particularly when unconfirmed results are used. Nyasia Fraser CNM URINE ORDERABLES Final Result [facility]
[address] [place] [address], [place] [phone] * ABO / Rh (10/14/2024 2:26 PM EDT) ABO Type O 10/14/2024 3:13 PM EDT [facility] RH type Positive 10/14/2024 3:13 PM EDT [facility] Blood Venipuncture / Unknown 10/14/2024 2:26 PM EDT 10/14/2024 2:30 PM EDT Farman Niesha Fraser [facility] BLOOD BANK TEST ORDERABLES Fi nal Result Performing Organization Address [facility]/ZIP Co de Phone Number [facility]
[address] [place] [address], [place] [phone] * Fentanyl, Urine - Urine, Clean Catch (10/14/2024 2:26 PM EDT) Fentanyl, Urine Negative Negative 10/14/2024 6:56 PM EDT [facility] Urine Urine specimen obtained by clean catch procedure / Unknown Collection / Unknown 10/14/2024 2:26 PM EDT 10/14/2024 2:30 PM EDT [facility] - 10/14/2024 6:56 PM EDT [...] test, particularly when unconfirmed results are used. [facility] Mobyko [facility] [employer] URINE ORDERABLES Final Result Performing Organization Address City/[facility]/ZIP Co de Phone Number [facility]
[address] [place] [address], [place] [phone] * Rubella Antibody, IgG (10/14/2024 2:26 PM EDT) Pathologist [facility] Rubella Antibodies, IgG 1.63 Immune >0.99 index 10/15/2024 8:12 AM EDT [facility] Comment: Non-immune <0.90 Equivocal 0.90 - 0.99 Immune >0.99 Blood Venipuncture / Unknown 10/14/2024 2:26 PM EDT 10/14/2024 2:30 PM EDT Narrative [facility] - 10/15/2024 8:12 AM EDT Performed at: - [address] [id number] Ambulatory Analyst: Lalo Cruz PhD, Phone: [phone] [facility] LAB BLOOD ORDERABLES Final Re sult Performing Organization Address [facility]/ZIP Co de Phone Number [address] [address], [place] [phone] * Hepatitis B Surface Antigen (10/14/2024 2:26 PM EDT) [facility] Hepatitis B Surface Ag Non-Reacti ve Non-Reacti ve 10/14/2024 7:20 PM EDT [facility] Blood Venipuncture / Unknown 10/14/2024 2:26 PM EDT 10/14/2024 2:30 PM EDT [facility] LAB BLOOD ORDERABLES Final Re sult [facility]
[address] [place] [address], [place] [phone] * (ABNORMAL) CBC (No Diff) (10/14/2024 2:26 PM EDT) [facility] WBC 8.84 3.40 - 10.80 10*3/mm3 10/14/2024 6:41 PM EDT [facility] RBC 4.29 3.77 - 5.28 10*6/mm3 10/14/2024 6:41 PM EDT [facility] Hemoglobin 11.3(L) 12.0 - 15.9 g/dL 10/14/2024 6:41 PM EDT [facility] Hematocrit 35.9 34.0 - 46.6 % 10/14/2024 6:41 PM EDT [facility] MCV 83.7 79.0 - 97.0 fL 10/14/2024 6:41 PM EDT [facility] MCH 26.3(L) 26.6 - 33.0 pg 10/14/2024 6:41 PM EDT [facility] MCHC 31.5 31.5 - 35.7 g/dL 10/14/2024 6:41 PM EDT [facility] RDW 17.1(H) 12.3 - 15.4 % 10/14/2024 6:41 PM EDT [facility] RDW-SD 51.1 37.0 - 54.0 fl 10/14/2024 6:41 PM EDT [facility] MPV 10.4 6.0 - 12.0 fL 10/14/2024 6:41 PM EDT [facility] Platelets 306 140 - 450 10*3/mm3 10/14/2024 6:41 PM EDT [facility] Blood Venipuncture / Unknown 10/14/2024 2:26 PM EDT 10/14/2024 2:30 PM EDT us Nyasia BEASLEY LAB BLOOD ORDERABLES Final Re sult [facility]
[address] [place] [address], * Antibody Screen (10/14/2024 2:26 PM EDT) Antibody Screen Negative 10/14/2024 3:29 PM EDT [facility] Blood Venipuncture / Unknown 10/14/2024 2:26 PM EDT 10/14/2024 2:30 PM EDT Nyasia Fraser CNM BLOOD BANK TEST ORDERABLES Fi nal Result [facility]
[address] [place] [address], [place] [phone] * Urine Culture - Urine, Urine, Clean Catch (10/14/2024 2:26 PM EDT) Urine Culture No growth TAVARES 10/16/2024 3:54 AM EDT [facility] Urine Urine specimen obtained by clean catch procedure / Unknown Collection / Unknown 10/14/2024 2:26 PM EDT 10/14/2024 2:30 PM EDT Nyasia Fraser CNM MICROBIOLOGY - GENERAL ORDERA BLES Final Result Performing Organization Address [facility]/ZIP Co de Phone Number [facility]
[address] [place] [address], [place] [phone] * Uric Acid (10/14/2024 2:26 PM EDT) Pathologist [facility] Uric Acid 3.8 2.4 - 5.7 mg/dL 10/14/2024 7:21 PM EDT [facility] Blood Venipuncture / Unknown 10/14/2024 2:26 PM EDT 10/14/2024 2:30 PM EDT Nyasia Fraser CNM LAB BLOOD ORDERABLES Final Re sult [facility]
[address] [place] [address], [place] [phone] * ALT (10/14/2024 2:26 PM EDT) ALT (SGPT) 13 1 - 33 U/L 10/14/2024 7:21 PM EDT [facility] Blood Venipuncture / Unknown 10/14/2024 2:26 PM EDT 10/14/2024 2:30 PM EDT us Nyasia Bargere CNM LAB BLOOD ORDERABLES Final Re sult Performing Organization Address City/[facility]/ZIP Co de Phone Number [facility]
[address] [place] [address], [place] [phone] * AST (10/14/2024 2:26 PM EDT) AST (SGOT) 12 1 - 32 U/L 10/14/2024 7:21 PM EDT [facility] Blood Venipuncture / Unknown 10/14/2024 2:26 PM EDT 10/14/2024 2:30 PM EDT Nyasia Bargere CNM LAB BLOOD ORDERABLES Final Re sult Performing Organization Address [facility] Co de Phone Number [facility]
[address] [place] [address], [place] [phone] * Lactate Dehydrogenase (10/14/2024 2:26 PM EDT) LDH 175 135 - 214 U/L 10/14/2024 7:21 PM EDT [facility] Blood Venipuncture / Unknown 10/14/2024 2:26 PM EDT 10/14/2024 2:30 PM EDT us Nyasia Bargere CNM LAB BLOOD ORDERABLES Final Re sult Performing Organization Address [facility]/ZIP Co de Phone Number [facility]
[address] [place] [address], [place] [phone] * Hemoglobin A1c (10/14/2024 2:26 PM EDT) Hemoglobin A1C 5.60 4.80 - 5.60 % 10/14/2024 7:41 PM EDT [facility] Blood Venipuncture / Unknown 10/14/2024 2:26 PM EDT 10/14/2024 2:30 PM EDT Narrative [facility] - 10/14/2024 7:41 PM EDT Hemoglobin A1C Ranges: Increased Risk for Diabetes 5.7% to 6.4% Diabetes >= 6.5% Diabetic Goal < 7.0% InRegBindero Mobyko Bria [facility] LAB BLOOD ORDERABLES Final Re sult [facility]
[address] [place] [address], [place] [phone] * Glucose, Random (10/14/2024 2:26 PM EDT) Glucose 90 65 - 99 mg/dL 10/14/2024 7:21 PM EDT [facility] Blood Venipuncture / Unknown 10/14/2024 2:26 PM EDT 10/14/2024 2:30 PM EDT us [facility] LAB BLOOD ORDERABLES Final Re sult [facility]
[address] [place] [address], [place] [phone] from Last 3 Months Insurance [facility] PPO Advance Directives * CPR (Attempt to Resuscitate) (Latest Code Status on File) Date Activated Date Inactivated Comments 06/11/2022 5:32 PM 06/14/2022 3:14 PM Question Answer Comments Code Status (Patient has no pulse and is not breathing): CPR (Attempt to Resuscitate) Medical Interventions (Patie nt has pulse or is breathing): Full * CPR (Attempt to Resuscitate) Date Activated Date Inactivated Comments 06/10/2022 11:32 PM 06/11/2022 5:32 PM Question Answer Comments Code Status (Patient has no pulse and is not breathing): CPR (Attempt to Resuscitate) Medical Interventions (Patie nt has pulse or is breathing): Full Support Level Of Support Discussed With: Patient Release to patient: Routine Release Care Teams Computer Software Engineer Relationship Specialty Start Date End Date Provider, No Known [facility] [place] [address] PCP - General 06/10/22
--- OUTSIDE RECORDS SUMMARY | 2024-11-02 15:47 | XMS_ITS | Encounter Summary ---
[facility] Address [address] [place] [address] Care Team Providers Care Fiscal Specialist Name Role Phone Provider, No Known Primary Care Provider Unavail able Encounter Details Date Type Department Care Team (Late st Contact Info) Description 08/05/2024 Telephone [facility] [address] [place] [id number] Provider, No Known [facility] [place] [address] Social History Tobacco Use Types Packs/Day Years [...] on file documented as of this encounter Miscellaneous Notes * Telephone Encounter - Sadia Gao RegSched Rep - 08/05/2024 9:00 AM EDT ERROR documented in this encounter Plan of Treatment Not on file documented as of this encounter Visit Diagnoses Not on filedocumented in this encounter Care Teams Fiscal Specialist Relationship Specialty Start Date End Date Provider, [place] [address] PCP - General 06/10/22 documented as of this encounter
--- OUTSIDE RECORDS SUMMARY | 2024-11-02 15:47 | XMS_ITS | Encounter Summary ---
Author Organization [facility] Address [address] [place] [address] Care Team Providers Care Gyn Name Role Phone Provider, No Known Primary Care Provider Unavail able Encounter Details Date Type Department Care Team (Latest Contact Info) Description 10/14/2024 Travel Social History Tobacco Use Types Packs/Day Years [...] on filedocumented in this encounter Care Teams Gyn Relationship Specialty Start Date End Date Provider, [place] [address] PCP - General 06/10/22 documented as of this encounter
[2024-11-02 17:20] VITALS: BP 130/74; PULSE 75; RESP 16; TEMP 36.6; O2SAT 100
== END 2024-11-02 17:25 | disposition home or self-care (01) ==
PROVIDERS: Emergency Provider Student in an Organized Health Care Education/Training Program; PCP Family Medicine
DX: O9A.212 Injury, poisoning and certain other consequences of external causes complicating pregnancy, second trimester (principal); S93.402A Sprain of unspecified ligament of left ankle, initial encounter; W01.10XA Fall on same level from slipping, tripping and stumbling with subsequent striking against unspecified object, initial encounter; Z3A.16 16 weeks gestation of pregnancy
CPT/HCPCS: 73610; 73630; 99283

== ENCOUNTER 2024-11-22 14:57 | Outpatient (CLI) | payer BC, SELFPAY ==
--- OUTSIDE RECORDS SUMMARY | 2024-10-14 15:00 | XMS_ITS | Encounter Summary ---
[facility] Address [address] [place] [address] Care Team Providers Care Right Of Way Cutter Name Role Phone Provider, No Known Primary Care Provider Unavail able Encounter Details Date Type Department Care Team (Late st Contact Info) Description 10/14/2024 3:00 PM EDT Lab [facility] [address] [place] [phone] care, subsequent , second trimester; with history [...] Urine Negative Negative 10/14/2024 6:56 PM EDT [facility] Urine Urine specimen obtained by clean catch procedure / Unknown Collection / Unknown 10/14/2024 2:26 PM EDT 10/14/2024 2:30 PM EDT [facility] LABORATORY - 10/14/2024 6:56 PM EDT Negative [...] URINE ORDERABLES Final Result Performing Organization Address City/[facility]/ZIP Co de Phone Number [facility]
[address] [place] [address], [place] [phone] * Protein / Creatinine Ratio, Urine - Urine, Clean Catch (10/14/2024 2:26 PM EDT) Protein/Creati nine Ratio, Urine 84.1 0.0 - 200.0 mg/G Crea 10/15/2024 12:10 AM EDT [facility] Creatinine, Urine 302.1 mg/dL 10/15/2024 12:10 AM EDT [facility] Total Protein, Urine 25.4 mg/dL 10/15/2024 12:10 AM EDT [facility] Urine Urine specimen obtained by clean catch procedure / Unknown Collection / Unknown 10/14/2024 2:26 PM EDT 10/14/2024 2:30 PM EDT us Nyasia Fraser [facility] URINE ORDERABLES Final Result Performing Organization Address [facility] Co de Phone Number [facility]
[address] [place] [address], [place] [phone] * Urine Culture - Urine, Urine, Clean Catch (10/14/2024 2:26 PM EDT) Urine Culture No growth TAVARES 10/16/2024 3:54 AM EDT [facility] Urine Urine specimen obtained by clean catch procedure / Unknown Collection / Unknown 10/14/2024 2:26 PM EDT 10/14/2024 2:30 PM EDT us Nyasia Fraser [facility] MICROBIOLOGY - GENERAL ORDERA BLES Final Result Performing Organization Address City/[facility]/ZIP Co de Phone Number [facility]
[address] [place] [address], [place] [phone] * Treponema pallidum AB w/Reflex RPR (10/14/2024 2:26 PM EDT) Pathologist [facility] Treponemal AB Total Non-Reacti ve Non-React marianela 10/14/2024 7:24 PM EDT [facility] Blood Venipuncture / Unknown 10/14/2024 2:26 PM EDT 10/14/2024 2:30 PM EDT Narrative [facility] - 10/14/2024 7:24 PM EDT Reactive results will reflex RPR testing. [facility] BLOOD ORDERABLES Final Re sult Performing Organization Address [facility] Co de Phone Number [facility]
[address] [place] [address], [place] [phone] * Hepatitis C Antibody (10/14/2024 2:26 PM EDT) [facility] Hepatitis C Ab Non-Reacti ve Non-Reacti ve 10/14/2024 7:24 PM EDT [facility] Blood Venipuncture / Unknown 10/14/2024 2:26 PM EDT 10/14/2024 2:30 PM EDT [facility] LAB BLOOD ORDERABLES Final Re sult [facility]
[address] [place] [address], [place] [phone] * Hepatitis B Surface Antigen (10/14/2024 2:26 PM EDT) Pathologist [facility] Hepatitis B Surface Ag Non-Reacti ve Non-Reacti ve 10/14/2024 7:20 PM EDT [facility] Blood Venipuncture / Unknown 10/14/2024 2:26 PM EDT 10/14/2024 2:30 PM EDT Nyasia Fraser [facility] LAB BLOOD ORDERABLES Final Re sult Performing Organization Address [facility] Co de Phone Number [facility]
[address] [place] [address], * HIV-1 / O / 2 Ag / Antibody 4th Generation (10/14/2024 2:26 PM EDT) [facility] HIV DUO Non-Reacti ve Non-Reacti ve 10/14/2024 7:24 PM EDT [facility] Blood Venipuncture / Unknown 10/14/2024 2:26 PM EDT 10/14/2024 2:30 PM EDT Narrative [facility] - 10/14/2024 7:24 PM EDT The HIV antibody/antigen combo assay is a qualitative assay for HIV that includes the p24 antigen as well as antibodies to HIV types 1 and 2. This test is intended to be used as a screening assay in the diagnosis of HIV infection in patients over the age of 2. Nyasia Fraser [facility] LAB BLOOD ORDERABLES Final Re sult Performing Organization Address [facility]/RUST de Phone Number [facility]
[address] [place] [address], * Rubella Antibody, IgG (10/14/2024 2:26 PM EDT) [facility] Rubella Antibodies, IgG 1.63 Immune >0.99 index 10/15/2024 8:12 AM EDT [facility] Comment: Non-immune <0.90 Equivocal 0.90 - 0.99 Immune >0.99 Blood Venipuncture / Unknown 10/14/2024 2:26 PM EDT 10/14/2024 2:30 PM EDT Narrative [facility] - 10/15/2024 8:12 AM EDT Performed at: 01 - [address] [id number] Specialty Plant Supervisor: Lalo Cruz PhD, Phone: [phone] Nyasia BEASLEY LAB BLOOD ORDERABLES Final Re sult Performing Organization Address City/[facility]/ZIP Co de Phone Number [facility] [address] [place] [address], [place] [phone] * Hemoglobin A1c (10/14/2024 2:26 PM EDT) Hemoglobin A1C 5.60 4.80 - 5.60 % 10/14/2024 7:41 PM EDT [facility] Blood Venipuncture / Unknown 10/14/2024 2:26 PM EDT 10/14/2024 2:30 PM EDT Narrative [facility] - 10/14/2024 7:41 PM EDT Hemoglobin A1C Ranges: Increased Risk for Diabetes 5.7% to 6.4% Diabetes >= 6.5% Diabetic Goal < 7.0% us Nyasia Fraser [facility] BLOOD ORDERABLES Final Re sult Performing Organization Address [facility]/ZIP Co de Phone Number [facility]
[address] [place] [address], [place] [phone] * Uric Acid (10/14/2024 2:26 PM EDT) Uric Acid 3.8 2.4 - 5.7 mg/dL 10/14/2024 7:21 PM EDT [facility] Blood Venipuncture / Unknown 10/14/2024 2:26 PM EDT 10/14/2024 2:30 PM EDT Nyasia BEASLEY LAB BLOOD ORDERABLES Final Re sult Performing Organization Address City/[facility]/ZIP Co de Phone Number [facility]
[address] [place] [address], [place] [phone] * Glucose, Random (10/14/2024 2:26 PM EDT) Glucose 90 65 - 99 mg/dL 10/14/2024 7:21 PM EDT [facility] Blood Venipuncture / Unknown 10/14/2024 2:26 PM EDT 10/14/2024 2:30 PM EDT Nyasia BEASLEY LAB BLOOD ORDERABLES Final Re sult [facility]
[address] [place] [address], * Urine Drug Screen - Urine, Clean Catch (10/14/2024 2:26 PM EDT) Pathologist [facility] THC, Screen, Urine Negative Negative 2024 6:31 PM EDT [facility] Phencyclidine (PCP), Urine Negative Negative 10/14/2024 6:31 PM EDT [facility] Cocaine Screen, Urine Negative Negative 10/14/2024 6:31 PM EDT [facility] Methamphetamine, Ur Negative Negative 10/14 6:31 PM EDT [facility] Opiate Screen Negative Negative 10/14/2024 6:31 PM EDT [facility] Amphetamine Screen, Urine Negative Negative 10/14/2024 6:31 PM EDT [facility] Benzodiazepine Screen, Urine Negative Negative 10/14/2024 6:31 PM EDT [facility] Tricyclic Antidepressants Screen Negative Negative 10/14/2024 6:31 PM EDT [facility] Methadone Screen, Urine Negative Negative 10/14/2024 6:31 PM EDT [facility] Barbiturates Screen, Urine Negative Negative 10/14/2024 6:31 PM EDT [facility] Oxycodone Screen, Urine Negative Negative 10/14/2024 6:31 PM EDT [facility] Buprenorphine, Screen, Urine Negative Negative 10/14/2024 6:31 PM EDT [facility] Urine Urine specimen obtained by clean catch procedure / Unknown Collection / Unknown 10/14/2024 2:26 PM EDT 10/14/2024 2:30 PM EDT Narrative [facility] - 10/14/2024 6:31 PM EDT [...] used. Nyasia BEASLEY URINE ORDERABLES Final Result [facility]
[address] [place] [address], [place] [phone] * Lactate Dehydrogenase (10/14/2024 2:26 PM EDT) LDH 175 135 - 214 U/L 10/14/2024 7:21 PM EDT [facility] Blood Venipuncture / Unknown 10/14/2024 2:26 PM EDT 10/14/2024 2:30 PM EDT [facility] [facility] BLOOD ORDERABLES Final Re sult [facility]
[address] [place] [address], [place] [phone] * Chlamydia trachomatis, Neisseria gonorrhoeae, Trichomonas vaginalis, PCR - Urine, Urine, Clean Catch (10/14/2024 2:26 PM EDT) Pathologist [facility] Chlamydia trachomatis, TONIA Negative Negative 10/18/2024 6:08 [...] 6:08 AM EDT Performed at: [address] [id number] Specialty Plant Supervisor: Roxanne Walter MD, Phone: [phone] us Nyasia BEASLEY MICROBIOLOGY - GENERAL ORDERA BLES Final Result Performing Organization Address City/State/[facility] Co de Phone Number [facility] [address] [place] [address], * (ABNORMAL) CBC (No Diff) (10/14/2024 2:26 PM EDT) [facility] WBC 8.84 3.40 - 10.80 10*3/mm3 10/14/2024 6:41 PM EDT [facility] RBC 4.29 3.77 - 5.28 10*6/mm3 10/14/2024 6:41 PM EDT [facility] Hemoglobin 11.3(L) 12.0 - 15.9 g/dL 10/14/2024 6:41 PM EDT [facility] Hematocrit 35.9 34.0 - 46.6 % 10/14/2024 6:41 PM EDT [facility] MCV 83.7 79.0 - 97.0 fL 10/14/2024 6:41 PM EDT [facility] MCH 26.3(L) 26.6 - 33.0 pg [facility]24 [facility] M[facility]C 31.5 31.5 - 35.7 g/dL 10/14/2024 6:41 PM EDT [facility] RDW 17.1(H) 12.3 - 15.4 % 10/14/2024 6:41 PM EDT [facility] RDW-SD 51.1 37.0 - 54.0 fl 10/14/2024 6:41 PM EDT [facility] MPV 10.4 6.0 - 12.0 fL 10/14/2024 6:41 PM EDT [facility] Platelets 306 140 - 450 10*3/mm3 10/14/2024 6:41 PM EDT [facility] Blood Venipuncture / Unknown 10/14/2024 2:26 PM EDT 10/14/2024 2:30 PM EDT [facility] LAB BLOOD ORDERABLES Final Re sult Performing Organization Address City/[facility]/ZIP Co de Phone Number [facility]
[address] [place] [address], [place] [phone] * AST (10/14/2024 2:26 PM EDT) AST (SGOT) 12 1 - 32 U/L 10/14/2024 7:21 PM EDT [facility] Blood Venipuncture / Unknown 10/14/2024 2:26 PM EDT 10/14/2024 2:30 PM EDT [facility] BLOOD ORDERABLES Final Re sult [facility]
[address] [place] [address], [place] [phone] * ABO / Rh (10/14/2024 2:26 PM EDT) ABO Type O 10/14/2024 3:13 PM EDT [facility] RH type Positive 10/14/2024 3:13 PM EDT [facility] Blood Venipuncture / Unknown 10/14/2024 2:26 PM EDT 10/14/2024 2:30 PM EDT us Inlogan Bargere CNM BLOOD BANK TEST ORDERABLES Fi nal Result [facility]
[address] [place] [address], [place] [phone] * Antibody Screen (10/14/2024 2:26 PM EDT) Antibody Screen Negative 10/14/2024 3:29 PM EDT [facility] Blood Venipuncture / Unknown 10/14/2024 2:26 PM EDT 10/14/2024 2:30 PM EDT us Inlogan Fraser CNM BLOOD BANK TEST ORDERABLES Fi nal Result Performing Organization Address [facility]/ZIP Co de Phone Number [facility]
[address] [place] [address], [place] [phone] * ALT (10/14/2024 2:26 PM EDT) ALT (SGPT) 13 1 - 33 U/L 10/14/2024 7:21 PM EDT [facility] Blood Venipuncture / Unknown 10/14/2024 2:26 PM EDT 10/14/2024 2:30 PM EDT Inlogan Fraser CNM LAB BLOOD ORDERABLES Final Re sult [facility]
[address] [place] [address], [place] [phone] * Lab Collection Processing (10/14/2024 2:26 PM EDT) Blood Venipuncture / Unknown 10/14/2024 2:26 PM EDT 10/14/2024 2:30 PM EDT Nyasia Fraser CNM LAB BLOOD ORDERABLES Final Re sult [facility]
[address] [place] [address], documented in this encounter Visit Diagnoses Diagnosis care, subsequent , second trimester with history of , antepartum 14 weeks gestation of Second trimester state, incidental documented in this encounter Care Teams Right Of Way Cutter Relationship Specialty Start Date End Date Provider, [place] [address] PCP - General 06/10/22 documented as of this encounter
--- OUTSIDE RECORDS SUMMARY | 2024-11-22 15:02 | XMS_ITS | Clinical Summary ---
Author Organization [facility] Address [address] [place] [address] Care Team Providers Care Divorce Attorney Name Role Phone Provider, No Known Primary [...] cysts. If the continues to term, the infant most often dies within the first days [...] Team Description 10/14/2024 3:00 PM EDT Lab [facility] [address] [place] [address] care, subsequent , second trimester; with history of , antepartum; 14 weeks gestation of ; Second trimester 10/14/2024 Travel from Last 3 Months Social History Tobacco [...] ve Non-React marianela 10/14/2024 7:24 PM EDT [facility] Blood Venipuncture / Unknown 10/14/2024 2:26 PM EDT 10/14/2024 2:30 PM EDT Narrative [facility] - 10/14/2024 7:24 PM EDT Reactive results will reflex RPR testing. [facility] BLOOD ORDERABLES Final Re sult Performing Organization Address [facility]/ZIP Co de Phone Number [facility]
[address] [place] [address], * Lab Collection Processing (10/14/2024 2:26 PM EDT) Blood Venipuncture / Unknown 10/14/2024 2:26 PM EDT 10/14/2024 2:30 PM EDT [facility] BLOOD ORDERABLES Final Re sult Performing Organization Address [facility]/ZIP Co de Phone Number [facility]
[address] [place] [address], * HIV-1 / O / 2 Ag / Antibody 4th Generation (10/14/2024 2:26 PM EDT) HIV DUO Non-Reacti ve Non-Reacti ve 10/14/2024 7:24 PM EDT [facility] Blood Venipuncture / Unknown 10/14/2024 2:26 PM EDT 10/14/2024 2:30 PM EDT Narrative [facility] - 10/14/2024 7:24 PM EDT The [...] CNM LAB BLOOD ORDERABLES Final Re sult [facility]
[address] [place] [address], [place] [phone] * Chlamydia trachomatis, Neisseria gonorrhoeae, Trichomonas vaginalis, [...] - 10/18/2024 6:08 AM EDT Performed at: [facility] Lab[address] [id number] Human Services Manager: Roxanne Walter MD, Phone: [phone] Nyasia Fraser [facility] MICROBIOLOG[facility] - GENERAL ORDERA BLES Final Result [facility] [address] [place] [address], [place] [phone] * Hepatitis C Antibody (10/14/2024 2:26 PM EDT) Hepatitis C Ab Non-Reacti ve Non-Reacti ve 10/14/2024 7:24 PM EDT [facility] Blood Venipuncture / Unknown 10/14/2024 2:26 PM EDT 10/14/2024 2:30 PM EDT Nyasia BEASLEY LAB BLOOD ORDERABLES Final Re sult [facility]
[address] [place] [address], * Protein / Creatinine Ratio, Urine - Urine, Clean Catch (10/14/2024 2:26 PM EDT) Protein/Creati nine Ratio, Urine 84.1 0.0 - 200.0 mg/G Crea 10/15/2024 12:10 AM EDT [facility] Creatinine, Urine 302.1 mg/dL 10/15/2024 12:10 AM EDT [facility] Total Protein, Urine 25.4 mg/dL 10/15/2024 12:10 AM EDT [facility] Urine Urine specimen obtained by clean catch procedure / Unknown Collection / Unknown 10/14/2024 2:26 PM EDT 10/14/2024 2:30 PM EDT us Nyasia BEASLEY URINE ORDERABLES Final Result Performing Organization Address City/[facility]/ZIP Co de Phone Number [facility]
[address] [place] [address], * Urine Drug Screen - Urine, Clean Catch (10/14/2024 2:26 PM EDT) THC, Screen, Urine Negative Negative 2024 6:31 PM EDT [facility] Phencyclidine (PCP), Urine Negative Negative 10/14/2024 6:31 PM EDT [facility] Cocaine Screen, Urine Negative Negative 10/14/2024 6:31 PM EDT [facility] Methamphetamine, Ur Negative Negative 10/14 6:31 PM EDT [facility] Opiate Screen Negative Negative 10/14/2024 6:31 PM EDT [facility] Amphetamine Screen, Urine Negative Negative 10/14/2024 6:31 PM EDT [facility] Benzodiazepine Screen, Urine Negative Negative 10/14/2024 6:31 PM EDT [facility] Tricyclic Antidepressants Screen Negative Negative 10/14/2024 6:31 PM EDT [facility] Methadone Screen, Urine Negative Negative 10/14/2024 6:31 PM EDT [facility] Barbiturates Screen, Urine Negative Negative 10/14/2024 6:31 PM EDT [facility] Oxycodone Screen, Urine Negative Negative 10/14/2024 6:31 PM EDT [facility] Buprenorphine, Screen, Urine Negative Negative 10/14/2024 6:31 PM EDT [facility] Urine Urine specimen obtained by clean catch procedure / Unknown Collection / Unknown 10/14/2024 2:26 PM EDT 10/14/2024 2:30 PM EDT [facility] - 10/14/2024 6:31 PM EDT Cutoff [...] Nyasia Fraser CNM URINE ORDERABLES Final Result [facility]
[address] [place] [address], * ABO / Rh (10/14/2024 2:26 PM EDT) ABO Type O 10/14/2024 3:13 PM EDT [facility] RH type Positive 10/14/2024 3:13 PM EDT [facility] Blood Venipuncture / Unknown 10/14/2024 2:26 PM EDT 10/14/2024 2:30 PM EDT [facility] BLOOD BANK TEST ORDERABLES Fi nal Result Performing Organization Address City/[facility]/ZIP Co de Phone Number [facility]
[address] [place] [address], * Fentanyl, Urine - Urine, Clean Catch (10/14/2024 2:26 PM EDT) Fentanyl, Urine Negative Negative 10/14/2024 6:56 PM EDT [facility] Urine Urine specimen obtained by clean catch procedure / Unknown Collection / Unknown 10/14/2024 2:26 PM EDT 10/14/2024 2:30 PM EDT Narrative [facility] - 10/14/2024 6:56 PM EDT Negative [...] test, particularly when unconfirmed results are used. [employer] Bria [facility] URINE ORDERABLES Final Result Performing Organization Address City/[facility]/ZIP Co de Phone Number [facility]
[address] [place] [address], [place] [phone] * Rubella Antibody, IgG (10/14/2024 2:26 PM EDT) Rubella Antibodies, IgG 1.63 Immune >0.99 index 10/15/2024 8:12 AM EDT [facility] Comment: Non-immune <0.90 Equivocal 0.90 - 0.99 Immune >0.99 Blood Venipuncture / Unknown 10/14/2024 2:26 PM EDT 10/14/2024 2:30 PM EDT Narrative [facility] - 10/15/2024 8:12 AM EDT Performed at: [address] [place] [id number] Human Services Manager: Lalo Cruz PhD, Phone: [phone] Indm Niesha Bria [facility] BLOOD ORDERABLES Final Re sult Performing Organization Address City/[facility]/ZIP Co de Phone Number [facility] [address] [place] [address], [place] [phone] * Hepatitis B Surface Antigen (10/14/2024 2:26 PM EDT) Pathologist [facility] Hepatitis B Surface Ag Non-Reacti ve Non-Reacti ve 10/14/2024 7:20 PM EDT [facility] Blood Venipuncture / Unknown 10/14/2024 2:26 PM EDT 10/14/2024 2:30 PM EDT Indmbryce Fraser [facility] LAB BLOOD ORDERABLES Final Re sult Performing Organization Address City/[facility]/ZIP Co de Phone Number [facility]
[address] [place] [address], * (ABNORMAL) CBC (No Diff) (10/14/2024 2:26 PM EDT) Pathologist [facility] WBC 8.84 3.40 - 10.80 10*3/mm3 10/14/2024 6:41 PM EDT [facility] RBC 4.29 3.77 - 5.28 10*6/mm3 10/14/2024 6:41 PM EDT [facility] Hemoglobin 11.3(L) 12.0 - 15.9 g/dL 10/14/2024 6:41 PM EDT [facility] Hematocrit 35.9 34.0 - 46.6 % 10/14/2024 6:41 PM EDT [facility] MCV 83.7 79.0 - 97.0 fL 10/14/2024 6:41 PM EDT [facility] MCH 26.3(L) 26.6 - 33.0 pg 10/14/2024 6:41 PM EDT [facility] MCHC 31.5 31.5 - 35.7 g/dL 10/14/2024 6:41 PM EDT [facility] RDW 17.1(H) 12.3 - 15.4 % 10/14/2024 6:41 PM EDT [facility] RDW-SD 51.1 37.0 - 54.0 fl 10/14/2024 6:41 PM EDT [facility] MPV 10.4 6.0 - 12.0 fL 10/14/2024 6:41 PM EDT [facility] Platelets 306 140 - 450 10*3/mm3 10/14/2024 6:41 PM EDT [facility] Blood Venipuncture / Unknown 10/14/2024 2:26 PM EDT 10/14/2024 2:30 PM EDT Nyasia Frsaer CNM LAB BLOOD ORDERABLES Final Re sult [facility]
[address] [place] [address], * Antibody Screen (10/14/2024 2:26 PM EDT) [facility] Signature Antibody Screen Negative 10/14/2024 3:29 PM EDT [facility] Blood Venipuncture / Unknown 10/14/2024 2:26 PM EDT 10/14/2024 2:30 PM EDT us Nyasia Fraser [facility] BLOOD BANK TEST ORDERABLES Fi nal Result [facility]
[address] [place] [address], [place] [phone] * Urine Culture - Urine, Urine, Clean Catch (10/14/2024 2:26 PM EDT) Urine Culture No growth TAVARES 10/16/2024 3:54 AM EDT [facility] Urine Urine specimen obtained by clean catch procedure / Unknown Collection / Unknown 10/14/2024 2:26 PM EDT 10/14/2024 2:30 PM EDT Nyasia Fraser [facility] - GENERAL ORDERA BLES Final Result Performing Organization Address City/[facility]/ZIP Co de Phone Number [facility]
[address] [place] [address], * Uric Acid (10/14/2024 2:26 PM EDT) Uric Acid 3.8 2.4 - 5.7 mg/dL 10/14/2024 7:21 PM EDT [facility] Blood Venipuncture / Unknown 10/14/2024 2:26 PM EDT 10/14/2024 2:30 PM EDT Paullogan Scherer Bria CNM LAB BLOOD ORDERABLES Final Re sult [facility]
[address] [place] [address], [place] [phone] * ALT (10/14/2024 2:26 PM EDT) ALT (SGPT) 13 1 - 33 U/L 10/14/2024 7:21 PM EDT [facility] Blood Venipuncture / Unknown 10/14/2024 2:26 PM EDT 10/14/2024 2:30 PM EDT us Nyasia BEASLEY LAB BLOOD ORDERABLES Final Re sult Performing Organization Address [facility]/ZIP Co de Phone Number [facility]
[address] [place] [address], [place] [phone] * AST (10/14/2024 2:26 PM EDT) AST (SGOT) 12 1 - 32 U/L 10/14/2024 7:21 PM EDT [facility] Blood Venipuncture / Unknown 10/14/2024 2:26 PM EDT 10/14/2024 2:30 PM EDT us Nyasia BEASLEY LAB BLOOD ORDERABLES Final Re sult Performing Organization Address [facility] Co de Phone Number [facility]
[address] [place] [address], [place] [phone] * Lactate Dehydrogenase (10/14/2024 2:26 PM EDT) LDH 175 135 - 214 U/L 10/14/2024 7:21 PM EDT [facility] Blood Venipuncture / Unknown 10/14/2024 2:26 PM EDT 10/14/2024 2:30 PM EDT us Nyasia Fraser [facility] BLOOD ORDERABLES Final Re sult Performing Organization Address [facility] Co de Phone Number [facility]
[address] [place] [address], [place] [phone] * Hemoglobin A1c (10/14/2024 2:26 PM EDT) Hemoglobin A1C 5.60 4.80 - 5.60 % 10/14/2024 7:41 PM EDT [facility] Blood Venipuncture / Unknown 10/14/2024 2:26 PM EDT 10/14/2024 2:30 PM EDT Narrative [facility] - 10/14/2024 7:41 PM EDT Hemoglobin A1C Ranges: Increased Risk for Diabetes 5.7% to 6.4% Diabetes >= 6.5% Diabetic Goal < 7.0% us Indmo Niesha Bargere CNM LAB BLOOD ORDERABLES Final Re sult Performing Organization Address City/[facility]/ZIP Co de Phone Number [facility]
[address] [place] [address], [place] [phone] * Glucose, Random (10/14/2024 2:26 PM EDT) [facility] Glucose 90 65 - 99 mg/dL 10/14/2024 7:21 PM EDT [facility] Blood Venipuncture / Unknown 10/14/2024 2:26 PM EDT 10/14/2024 2:30 PM EDT us Inlogan Bargere CN LAB BLOOD ORDERABLES Final Re sult Performing Organization Address [facility] Co de Phone Number [facility]
[address] [place] [address], [place] [phone] from Last 3 Months Insurance [facility] PPO Advance Directives * CPR (Attempt to [...] Release to patient: Routine Release Care Teams Divorce Attorney Relationship Specialty Start Date End Date [place], [place] [address] PCP - General 06/10/22
--- OUTSIDE RECORDS SUMMARY | 2024-11-22 15:02 | XMS_ITS | Encounter Summary ---
Author Organization [facility] Address [address] [place] [address] Care Team Providers Care Director Sales Training Name Role Phone Provider, No Known Primary [...] on filedocumented in this encounter Care Teams Director Sales Training Relationship Specialty Start Date End Date Provider, [place] [address] PCP - General 06/10/22 documented as of this encounter
[2024-11-22 15:10] VITALS: BP 123/70; RESP 18; TEMP 36.8; O2SAT 98
[2024-11-22 15:15] VITALS: BMI 40.7
[2024-11-22] MEDS: LACTATED RINGERS 1000ML 1,000 ML 999 ML IV (15:30)
--- NOTE | 2024-11-22 15:39 | EXP.GYNCONS ---
[facility] Disclaimer: The information contained in this section may have been updated after the patient was seen, as this information can be updated by other users. Medical History (Updated 11/22/24 @ 14:56 by MARGARITO Nolasco) Elevated blood pressure affecting in second trimester, antepartum Maternal obesity affecting , antepartum History of stillbirth in currently patient History of pre-eclampsia in prior , currently Status post normal vaginal delivery Anemia affecting Anxiety Depression Forceps delivery with baby delivered Stillbirth with antepartum Dizziness Obesity (BMI 30.0-34.9) Surgical History History of thumb surgery Family History Other Diabetes Social History Smoking Status: Never smoker alcohol intake: never substance use type: denies use current occupational status: employed Travel in the last 8 weeks?: None current occupation: [employer] employee Have you lived/traveled outside US in past 30 days?: No Contact w/someone who lives/traveled outside US past 30 days?: No Exposure to someone with infectious disease in past 14 days?: No Do you have a fever (greater than 100.4 F or 38 C)?: No Have you tested positive for COVID-19?: No Exposed to someone with COVID-19 in past 14 days?: No Do you have a sore throat?: No Do you have a cough?: No Do you have any weakness?: No Do you have any diarrhea?: No Are you experiencing any unusual bleeding?: No Do you have any muscle aches/pain?: No Do you have any abdominal pain?: No Are you experiencing loss of taste or smell?: No Meds Home Medications and Allergies Home Medications ?Medication ?Instructions ?Recorded ?Confirmed ?Type promethazine 12.5 mg tablet 12.5 mg PO TID #90 tabs 10/25/24 11/22/24 Rx aspirin 81 mg tablet 81 mg PO DAILY 11/09/24 11/22/24 History New Prescriptions to Start Prescriptions: Allergies Allergy/AdvReac Type Severity Reaction Status Date / Time No Known Allergies Allergy Verified 11/22/24 14:15 Exam (Inpt) I & O for Labs for Last 24 Hours: Intake & Output 11/19/24 11/20/24 11/21/24 11/22/24 23:59 23:59 23:59 23:59 Weight 245 lb
[2024-11-22 15:58] VITALS: BMI 40.7
[2024-11-22 16:15] VITALS: BP 107/59
[2024-11-22 16:16] LABS: Hematocrit 33.6 % (37.0-47.0); Hemoglobin 10.6 g/dL (12.2-16.2); Immature Granulocytes % 0.3 %; Mean Corpuscular HGB Conc 31.5 g/dL (31.8-35.4); Mean Corpuscular Hemoglobin 26.4 pg (27.0-31.2); Mean Corpuscular Volume 83.8 fl (81-99); Nucleated Red Blood Cells % 0 %; Platelet Count 269 K/mm3 (142-424); Red Blood Count 4.01 M/mm3 (4.20-5.40); Red Cell Distribution Width-SD 48.7 fL; White Blood Count 11.1 K/mm3 (4.8-10.8)
[2024-11-22 16:27] LABS: Alanine Aminotransferase 10 U/L (12-78); Albumin Level 3.8 g/dl (3.5-5.0); Albumin/Globulin Ratio 1.2 (1.1-1.8); Alkaline Phosphatase 122 U/L (38-126); Anion Gap 15.0 mEq/L (5-15); Aspartate Amino Transferase 20 U/L (14-36); Bilirubin,Total 0.4 mg/dl (0.2-1.3); Blood Urea Nitrogen 8 mg/dl (7-17); Calcium 9.9 mg/dl (8.4-10.2); Carbon Dioxide 23 mmol/L (22.0-30.0); Chloride 102 mmol/L (98-107); Creatinine Clearance Estimated 307 mL/min (50-200); Creatinine,Serum 0.50 mg/dl (0.52-1.04); Estimated Glomerular Filt Rate 153 ml/min (>60); GFR (African American) 185 ML/MIN (>60); Globulin 3.2 g/dL (1.3-3.2); Glucose 90 mg/dl (74-100); Magnesium 1.7 mg/dl (1.6-2.3); Potassium 4.0 mmoL/L (3.5-5.1); Sodium 136 mmol/L (136-145); Total Protein,Serum 7.0 g/dl (6.3-8.2)
[2024-11-22 16:28] LABS: Uric Acid 3.3 mg/dl (2.5-6.2)
[2024-11-22 16:39] LABS: Activated Partial Thrombo Time 24.5 seconds (22.8-30.6); INR 0.92 (0.9-1.1); Prothrombin Time 10.3 seconds (10.1-12.5)
[2024-11-22 16:50] LABS: Fibrinogen 585 mg/dL (229.9-363.5)
== END 2024-11-22 16:50 | disposition home or self-care (01) ==
LOC: OBOUT 14:58 → OB 14:59
PROVIDERS: PCP Family Medicine; Visit Provider Obstetrics & Gynecology
DX: Z34.82 Encounter for supervision of other normal pregnancy, second trimester (principal); Z3A.19 19 weeks gestation of pregnancy
CPT/HCPCS: 80053; 82570; 83735; 84156; 84550; 85025; 85384; 85610; 85730; 96360; 99212; G0463; J7120

== ENCOUNTER 2024-11-25 10:12 | Outpatient (CLI) | payer BC, SELFPAY ==
--- OUTSIDE RECORDS SUMMARY | 2024-10-14 15:00 | XMS_ITS | Encounter Summary ---
Author Organization [facility] Address [address] [place] [address] Care Team Providers Care Senior Financial Reporting Analyst Name Role Phone Provider, No Known Primary Care Provider Unavail able Encounter Details Date Type Department Care Team (Late st Contact Info) Description 10/14/2024 3:00 PM EDT Lab [facility] [address] [place] [address] care, subsequent , second trimester; with history of , antepartum; 14 weeks gestation of ; Second trimester Social History Tobacco Use Types Packs/Day Years Used Date Smoking Tobacco: Never Passive Smoke Exposure: Never Smokeless Tobacco: Never Alcohol Use Standard Drinks/Week Comments Never 0 (1 standard drink = 0.6 oz pur e alcohol) Abuse Screen Answer Date Recorded Feels Unsafe at Home or Work/School no 06/10/2022 Feels Threatened by Someone no 02/2022 Does Anyone Try to Keep You From Having Contact with Others or Doing Things Outside Your Home? no 06/10/2022 Physical Signs of Abuse Present no 06/10/2022 Housing Stability Answer Date Recorded Current Living Arrangements home 02/2022 Potentially Unsafe Housing Conditions Not on eddie e 06/10/2022 Disabilities Answer Date Recorded Difficulty Concentrating, Remembering or Making Decisions no 06/10/2022 Difficulty Managing Errands Independently no 06/10/2022 Education Answer Date Recorded What is the highest level of school you have completed or the highest degree you have received? High school graduate 04/23/2023 Comments No Sex and Gender Information Value Date Recorded Sex Assigned at Not on file Legal Sex Female 11:52 AM EDT Gender Identity Not on file Sexual Orientation Not on file documented as of this encounter Plan of Treatment Not on file documented as of this encounter Procedures Procedure Name Priority Date/Time Associated Diagnosis Comments TREPONEMA PALLIDUM AB W/REFLEX RPR Routine 10/14/2024 2:26 PM EDT 14 weeks gestation of Second trimester LAB COLLECTION PROCESSING Routine 10/14/2024 2:26 PM EDT care, subsequent , second trimester HIV-1/O/2 ANTIGEN/ANTIBODY Routine 10/14/2024 2:26 PM EDT 14 weeks gestation of Second trimester CHLAMYDIA TRACHOMATIS, NEISSERIA GONORRHOEAE, TRICHOMONAS VAGINALIS, PCR Routine 10/14/2024 2:26 PM EDT 14 weeks gestation of Second trimester HEPATITIS C ANTIBODY Routine 10/14/2024 2:26 PM EDT 14 weeks gestation of Second trimester PROTEIN / CREATININE RATIO, URINE Routine 10/14/2024 2:26 PM EDT with history of , antepartum URINE DRUG SCREEN Routine 10/14/2024 2:2 6 PM EDT 14 weeks gestation of Second trimester ABO/RH Routine 10/14/2024 2:26 PM EDT 14 weeks gestation of Second trimester FENTANYL, URINE Routine 10/14/2024 2:26 PM EDT 14 weeks gestation of Second trimester RUBELLA ANTIBODY, IGG Routine 10/14/2024 2:26 PM EDT 14 weeks gestation of Second trimester HEPATITIS B SURFACE ANTIGEN Routine 10/14/2024 2:26 PM EDT 14 weeks gestation of Second trimester CBC (NO DIFF) Routine 10/14/2024 2:26 PM EDT 14 weeks gestation of Second trimester ANTIBODY SCREEN Routine 10/14/2024 2:26 PM EDT 14 weeks gestation of Second trimester URINE CULTURE Routine 10/14/2024 2:26 PM EDT 14 weeks gestation of Second trimester URIC ACID Routine 10/14/2024 2:26 PM EDT with history of , antepartum ALT Routine 10/14/2024 2:26 PM EDT with history of , antepartum AST Routine 10/14/2024 2:26 PM EDT with history of , antepartum LACTATE DEHYDROGENASE Routine 10/14/2024 2:26 PM EDT with history of , antepartum HEMOGLOBIN A1C Routine 10/14/2024 2:26 PM EDT 14 weeks gestation of Second trimester GLUCOSE, RANDOM Routine 10/14/2024 2:26 PM EDT 14 weeks gestation of Second trimester documented in this encounter Results * Fentanyl, Urine - Urine, Clean Catch (10/14/2024 2:26 PM EDT) Fentanyl, Urine Negative Negative 10/14/2024 6:56 PM EDT [facility] Urine Urine specimen obtained by clean catch procedure / Unknown Collection / Unknown 10/14/2024 2:26 PM EDT 10/14/2024 2:30 PM EDT [facility] - 10/14/2024 6:56 PM EDT Negative Threshold: Fentanyl 5 ng/mL The normal value for the drug tested is negative. This report includes final unconfirmed screening results to be used for medical treatment purposes only. Unconfirmed results must not be used for non-medical purposes such as employment or legal testing. Clinical consideration should be applied to any drug of abuse test, particularly when unconfirmed results are used. us Nyasia BEASLEY URINE ORDERABLES Final Result [facility]
[address] [place] [address], [place] [phone] * Protein / Creatinine Ratio, Urine - Urine, Clean Catch (10/14/2024 2:26 PM EDT) Protein/Creati nine Ratio, Urine 84.1 0.0 - 200.0 mg/G Crea 10/15/2024 12:10 AM EDT [facility] Creatinine, Urine 302.1 mg/dL 10/15/2024 12:10 AM EDT [facility] Total Protein, Urine 25.4 mg/dL 10/15/2024 12:10 AM EDT [facility] Urine Urine specimen obtained by clean catch procedure / Unknown Collection / Unknown 10/14/2024 2:26 PM EDT 10/14/2024 2:30 PM EDT us Nyasia BEASLEY URINE ORDERABLES Final Result Performing Organization Address [facility] Co de Phone Number [facility]
[address] [place] [address], [place] [phone] * Urine Culture - Urine, Urine, Clean Catch (10/14/2024 2:26 PM EDT) Urine Culture No growth TAVARES 10/16/2024 3:54 AM EDT [facility] Urine Urine specimen obtained by clean catch procedure / Unknown Collection / Unknown 10/14/2024 2:26 PM EDT 10/14/2024 2:30 PM EDT us Nyasia BEASLEY MICROBIOLOGY - GENERAL ORDERA BLES Final Result [facility]
[address] [place] [address], [place] [phone] * Treponema pallidum AB w/Reflex RPR (10/14/2024 2:26 PM EDT) Pathologist [facility] Treponemal AB Total Non-Reacti ve Non-React marianela 10/14/2024 7:24 PM EDT [facility] Blood Venipuncture / Unknown 10/14/2024 2:26 PM EDT 10/14/2024 2:30 PM EDT Narrative [facility] - 10/14/2024 7:24 PM EDT Reactive results will reflex RPR testing. [facility] CenterNavigatorMDbryce BargerB[facility] LAB BLOOD ORDERABLES Final Re sult Performing Organization Address City/[facility]/ZIP Co de Phone Number [facility]
[address] [place] [address], [place] [phone] * Hepatitis C Antibody (10/14/2024 2:26 PM EDT) Pathologist [facility] Hepatitis C Ab Non-Reacti ve Non-Reacti ve 10/14/2024 7:24 PM EDT [facility] Blood Venipuncture / Unknown 10/14/2024 2:26 PM EDT 10/14/2024 2:30 PM EDT us [facility] BLOOD ORDERABLES Final Re sult Performing Organization Address City/[facility]/ZIP Co de Phone Number [facility]
[address] [place] [address], [place] [phone] * Hepatitis B Surface Antigen (10/14/2024 2:26 PM EDT) Hepatitis B Surface Ag Non-Reacti ve Non-Reacti ve 10/14/2024 7:20 PM EDT [facility] Blood Venipuncture / Unknown 10/14/2024 2:26 PM EDT 10/14/2024 2:30 PM EDT [facility] Niesha [facility] LAB BLOOD ORDERABLES Final Re sult Performing Organization Address [facility] Co de Phone Number [facility]
[address] [place] [address], * HIV-1 / O / 2 Ag / Antibody 4th Generation (10/14/2024 2:26 PM EDT) HIV DUO Non-Reacti ve Non-Reacti ve 10/14/2024 7:24 PM EDT [facility] Blood Venipuncture / Unknown 10/14/2024 2:26 PM EDT 10/14/2024 2:30 PM EDT Narrative [facility] - 10/14/2024 7:24 PM EDT The HIV antibody/antigen combo assay is a qualitative assay for HIV that includes the p24 antigen as well as antibodies to HIV types 1 and 2. This test is intended to be used as a screening assay in the diagnosis of HIV infection in patients over the age of 2. Nysaia Scherer [facility] LAB BLOOD ORDERABLES Final Re sult Performing Organization Address [facility] de Phone Number [facility]
[address] [place] [address], * Rubella Antibody, IgG (10/14/2024 2:26 PM EDT) Rubella Antibodies, IgG 1.63 Immune >0.99 index 10/15/2024 8:12 AM EDT [facility] Comment: Non-immune <0.90 Equivocal 0.90 - 0.99 Immune >0.99 Blood Venipuncture / Unknown 10/14/2024 2:26 PM EDT 10/14/2024 2:30 PM EDT Narrative [facility] - 10/15/2024 8:12 AM EDT Performed at: 01 - [facility] [address] [place], [place] [id number] [place]: Lalo Cruz PhD, Phone: [phone] Nyasia Fraser CNM LAB BLOOD ORDERABLES Final Re sult Performing Organization Address City/[facility]/ZIP Co de Phone Number [facility] [address] [place] [address], [place] [phone] * Hemoglobin A1c (10/14/2024 2:26 PM EDT) Hemoglobin A1C 5.60 4.80 - 5.60 % 10/14/2024 7:41 PM EDT [facility] Blood Venipuncture / Unknown 10/14/2024 2:26 PM EDT 10/14/2024 2:30 PM EDT Narrative [facility] - 10/14/2024 7:41 PM EDT Hemoglobin A1C Ranges: Increased Risk for Diabetes 5.7% to 6.4% Diabetes >= 6.5% Diabetic Goal < 7.0% Nyasia Fraser CN LAB BLOOD ORDERABLES Final Re sult Performing Organization Address [facility] Co de Phone Number [facility]
[address] [place] [address], * Uric Acid (10/14/2024 2:26 PM EDT) Uric Acid 3.8 2.4 - 5.7 mg/dL 10/14/2024 7:21 PM EDT [facility] Blood Venipuncture / Unknown 10/14/2024 2:26 PM EDT 10/14/2024 2:30 PM EDT Nyasia Fraser CN LAB BLOOD ORDERABLES Final Re sult Performing Organization Address City/[facility]/ZIP Co de Phone Number [facility]
[address] [place] [address], * Glucose, Random (10/14/2024 2:26 PM EDT) Pathologist [facility] Glucose 90 65 - 99 mg/dL 10/14/2024 7:21 PM EDT [facility] Blood Venipuncture / Unknown 10/14/2024 2:26 PM EDT 10/14/2024 2:30 PM EDT Nyasia Fraser [facility] LAB BLOOD ORDERABLES Final Re sult [facility]
[address] [place] [address], * Urine Drug Screen - Urine, Clean Catch (10/14/2024 2:26 PM EDT) Pathologist [facility] THC, Screen, Urine Negative Negative 2024 6:31 PM EDT [facility] Phencyclidine (PCP), Urine Negative Negative 10/14/2024 6:31 PM EDT [facility] Cocaine Screen, Urine Negative Negative 10/14/2024 6:31 PM EDT [facility] Methamphetamine, Ur Negative Negative 10/14 6:31 PM EDT [facility] Opiate Screen Negative Negative 10/14/2024 6:31 PM EDT [facility] Amphetamine Screen, Urine Negative Negative 10/14/2024 6:31 PM EDT [facility] Benzodiazepine Screen, Urine Negative Negative 10/14/2024 6:31 PM EDT [facility] Tricyclic Antidepressants Screen Negative Negative 10/14/2024 6:31 PM EDT [facility] Methadone Screen, Urine Negative Negative 10/14/2024 6:31 PM EDT [facility] Barbiturates Screen, Urine Negative Negative 10/14/2024 6:31 PM EDT [facility] Oxycodone Screen, Urine Negative Negative 10/14/2024 6:31 PM EDT [facility] Buprenorphine, Screen, Urine Negative Negative 10/14/2024 6:31 PM EDT [facility] Urine Urine specimen obtained by clean catch procedure / Unknown Collection / Unknown 10/14/2024 2:26 PM EDT 10/14/2024 2:30 PM EDT Narrative [facility] - 10/14/2024 6:31 PM EDT Cutoff For Drugs Screened: Amphetamines 500 ng/ml Barbiturates 200 ng/ml Benzodiazepines 150 ng/ml Cocaine 150 ng/ml Methadone 200 ng/ml Opiates 100 ng/ml Phencyclidine 25 ng/ml THC 50 ng/ml Methamphetamine 500 ng/ml Tricyclic Antidepressants 300 ng/ml Oxycodone 100 ng/ml Buprenorphine 10 ng/ml The normal value for all drugs tested is negative. This report includes unconfirmed screening results, with the cutoff values listed, to be used for medical treatment purposes only. Unconfirmed results must not be used for non-medical purposes such as employment or legal testing. Clinical consideration should be applied to any drug of abuse test, particularly when unconfirmed results are used. Nyasia BEASLEY URINE ORDERABLES Final Result Performing Organization Address City/[facility]/ZIP Co de Phone Number [facility]
[address] [place] [address], [place] [phone] * Lactate Dehydrogenase (10/14/2024 2:26 PM EDT) LDH 175 135 - 214 U/L 10/14/2024 7:21 PM EDT [facility] Blood Venipuncture / Unknown 10/14/2024 2:26 PM EDT 10/14/2024 2:30 PM EDT [email or web address] Thumb Friendly Bria [facility] LAB BLOOD ORDERABLES Final Re sult Performing Organization Address City/[facility]/ZIP Co de Phone Number [facility]
[address] [place] [address], [place] [phone] * Chlamydia trachomatis, Neisseria gonorrhoeae, Trichomonas vaginalis, PCR - Urine, Urine, Clean Catch (10/14/2024 2:26 PM EDT) Pathologist [facility] Chlamydia trachomatis, TONIA Negative Negative 10/18/2024 6:08 AM EDT [facility] Gonococcus by TONIA Negative Negative 10/18/2024 6:08 AM EDT [facility] Trichomonas vaginosis Negative Negative 10/18/2024 6:08 AM EDT [facility] Urine Urine specimen obtained by clean catch procedure / Unknown Collection / Unknown 10/14/2024 2:26 PM EDT 10/14/2024 2:30 PM EDT Narrative [facility] - 10/18/2024 6:08 AM EDT Performed at: [address] [place] [id number] [place]: Roxanne Walter MD, Phone: [phone] Nyasia BEASLEY MICROBIOLOGY - GENERAL ORDERA BLES Final Result [facility] [address] [place] [address], * (ABNORMAL) CBC (No Diff) (10/14/2024 2:26 PM EDT) Pathologist [facility] WBC 8.84 3.40 - 10.80 10*3/mm3 10/14/2024 6:41 PM EDT [facility] RBC 4.29 3.77 - 5.28 10*6/mm3 10/14/2024 6:41 PM EDT [facility] Hemoglobin 11.3(L) 12.0 - 15.9 g/dL 10/14/2024 6:41 PM EDT [facility] Hematocrit 35.9 34.0 - 46.6 % 10/14/2024 6:41 PM EDT [facility] MCV 83.7 79.0 - 97.0 fL 10/14/2024 6:41 PM EDT [facility] MCH 26.3(L) 26.6 - 33.0 pg 10/14/2024 6:41 PM EDT [facility] MCHC 31.5 31.5 - 35.7 g/dL 10/14/2024 6:41 PM EDT [facility] RDW 17.1(H) 12.3 - 15.4 % 10/14/2024 6:41 PM EDT [facility] RDW-SD 51.1 37.0 - 54.0 fl 10/14/2024 6:41 PM EDT [facility] MPV 10.4 6.0 - 12.0 fL 10/14/2024 6:41 PM EDT [facility] Platelets 306 140 - 450 10*3/mm3 10/14/2024 6:41 PM EDT [facility] Blood Venipuncture / Unknown 10/14/2024 2:26 PM EDT 10/14/2024 2:30 PM EDT [facility]NavigatorMD OluKaiBriaUC [facility] BLOOD ORDERABLES Final Re sult Performing Organization Address [facility]/ZIP Co de Phone Number [facility]
[address] [place] [address], * AST (10/14/2024 2:26 PM EDT) AST (SGOT) 12 1 - 32 U/L 10/14/2024 7:21 PM EDT [facility] Blood Venipuncture / Unknown 10/14/2024 2:26 PM EDT 10/14/2024 2:30 PM EDT us InGammastar Medical GroupUC [facility] LAB BLOOD ORDERABLES Final Re sult [facility]
[address] [place] [address], [place] [phone] * ABO / Rh (10/14/2024 2:26 PM EDT) ABO Type O 10/14/2024 3:13 PM EDT [facility] RH type Positive 10/14/2024 3:13 PM EDT [facility] Blood Venipuncture / Unknown 10/14/2024 2:26 PM EDT 10/14/2024 2:30 PM EDT us Nyasia BEASLEY BLOOD BANK TEST ORDERABLES Fi nal Result Performing Organization Address City/[facility]/ZIP Co de Phone Number [facility]
[address] [place] [address], [place] [phone] * Antibody Screen (10/14/2024 2:26 PM EDT) Antibody Screen Negative 10/14/2024 3:29 PM EDT [facility] Blood Venipuncture / Unknown 10/14/2024 2:26 PM EDT 10/14/2024 2:30 PM EDT us Nyasia Fraser [facility] BLOOD BANK TEST ORDERABLES Fi nal Result Performing Organization Address [facility] Co de Phone Number [facility]
[address] [place] [address], [place] [phone] * ALT (10/14/2024 2:26 PM EDT) ALT (SGPT) 13 1 - 33 U/L 10/14/2024 7:21 PM EDT [facility] Blood Venipuncture / Unknown 10/14/2024 2:26 PM EDT 10/14/2024 2:30 PM EDT us Nyasia Fraser CNM LAB BLOOD ORDERABLES Final Re sult Performing Organization Address City/[facility]/ZIP Co de Phone Number [facility]
[address] [place] [address], [place] [phone] * Lab Collection Processing (10/14/2024 2:26 PM EDT) Blood Venipuncture / Unknown 10/14/2024 2:26 PM EDT 10/14/2024 2:30 PM EDT us Nyasia Fraser CNM LAB BLOOD ORDERABLES Final Re sult [facility]
[address] [place] [address], documented in this encounter Visit Diagnoses Diagnosis care, subsequent , second trimester with history of , antepartum 14 weeks gestation of Second trimester state, incidental documented in this encounter Care Teams Senior Financial Reporting Analyst Relationship Specialty Start Date End Date Provider, [place] [address] PCP - General 06/10/22 documented as of this encounter
--- OUTSIDE RECORDS SUMMARY | 2024-11-24 21:22 | XMS_ITS | Encounter Summary ---
Author Organization [facility] Address [address] [place] [address] Care Team Providers Care Inspector Soldering Name Role Phone Provider, No Known Primary Care Provider Unavail able Reason for Visit * Reason Comments lighheadedness Elevated Blood Pressure Friday was seen at local hospital for headache that she had from Friday to Friday-since resolved. She states that felt like it was a migraine. She vomited 5x but can since keep things down. She want to her grandparents house and her BP tonight 130/105. Encounter Details Date Type Department Care Team (Late st Contact Info) Description 11/24/2024 9:22 PM EDT - 11/25/2024 5:35 AM EDT Hospital Encounter [facility] [address] [place] [address] Chantell Hung MD [address] [facility] [address] [place] [address] Discharge Disposition: Home or Self Care Social History Tobacco Use Types Packs/Day Years [...] you have received? High school graduate 04/23/2023 Estimated Date of Delivery Comme nts Yes 04/14/2025 Based on Patient Reported Sex and Gender Information Value Date Recorded Sex Assigned at Not on file Legal Sex Female 11:52 AM EDT Gender Identity Not on file Sexual Orientation Not on file documented as of this encounter Last Filed Vital Signs Vital Sign Reading Time Taken Comments Blood Pressure 106/60 11/24/2024 10:15 PM EDT Pulse 98 11/24/2024 9:55 PM EDT Temperature - - Respiratory Rate 18 11/24/2024 9:54 PM EDT Oxygen Saturation 98% 11/24/2024 9:55 PM EDT Inhaled Oxygen Concentration - - Weight 112 kg (246 lb) 11/24/2024 9:51 PM EDT Height 165.1 cm (5' 5 ) 11/24/2024 9:51 PM EDT Body Mass Index 40.94 11/24/2024 9:51 PM EDT documented in this encounter Functional Status * Question Answer Date of Assessment Author 1. Wish to be (Past 1 Month) No 11/24/2024 9:52 PM EDT Trini Buchanan RN 2. Non-Specific Active Suici lissette Thoughts (Past 1 Month) No 11/24/2024 9:52 PM EDT Trini Buchanan RN * Calculated C-SSRS Risk Score (Lifetime/Recent) Answer Date of Assessment Author No Risk Indicated 11/24/2024 9:52 PM EDT Trini Buchanan RN * [place] Suicide Severity Rating Scale (Screener/Recent Self-Report) Question Answer Date of Assessment Author 6. Suicidal Behavior (Lifetime) No 9:52 PM EDT Trini Buchanan RN documented as of this encounter Discharge Instructions * Attachments The following attachments cannot be sent through Care Everywhere. * Second Trimester of (Cypriot) * Anemia During : What to Know (Cypriot) * Iron Capsules or Tablets (Supplement) (Cypriot) documented in this encounter Medications at Time of Discharge aspirin 81 MG EC tablet Take 1 tablet by mouth Daily. Magnesium Oxide -Mg Supplement 400 (240 Mg) MG tablet 11/05/2022 ondansetron ODT (ZOFRAN-ODT) 4 MG disintegrating tablet 11/19/2022 documented as of this encounter Miscellaneous Notes * REJI Notes - Chantell Hung MD - 11/24/2024 11:00 PM EDT Images from the original note were not included. [facility] Obstetric History and Physical Chief Complaint Patient presents with lighheadedness Elevated Blood Pressure Friday was seen at local hospital for headache that she had from Friday to Friday-since resolved.She states that felt like it was a migraine. She vomited 5x but can since keep things down. She want to her grandparents house and her BP tonight 130/105. Subjective Patient is a 24 y.o. female currently at 19w6d, who presents for a second opinion. She was sick a few days ago and had a lot of diarrhea, then had a headache that lasted for days. She reportsthat these symptoms have also resolved but now she just feels fatigued. She has a history of preeclampsia at 26 weeks with her first resulting in an IUFD so she checked her blood pressure and reports that it was high at home. She decided to come in to make sure that baby is ok and that she is not developing preeclampsia. Her care is benign. Her previous obstetric/gynecological history is noted for is remarkable for preeclampsia The following portions of the patients history were reviewed and updated as appropriate: current medications, allergies, past medical history, past surgical history, past family history, past social history, and problem list . Information: Results Initial Labs Test Value Reference Range Date Time Hemoglobin 11.3 g/dL 12.0 - 15.9 10/14/24 1426 Hematocrit 35.9 % 34.0 - 46.6 10/14/24 1426 Platelets 306 10*3/mm3 140 - 450 10/14/24 1426 Rubella IgG 1.63 index Immune >0.99 10/14/24 1426 Hepatitis B SAg Non-Reactive Non-Reactive 10/14/24 1426 Hepatitis C Ab Non-Reactive Non-Reactive 10/14/24 1426 RPR T. Pallidum Ab Non-Reactive Non-Reactive 10/14/24 1426 ABO O 10/14/24 1426 Rh Positive 10/14/24 1426 Antibody Screen Negative 10/14/24 1426 HIV Non-Reactive Non-Reactive 10/14/24 1426 Urine Culture No growth 10/14/24 142 Gonorrhea Negative Negative 10/14/24 1426 Chlamydia Negative Negative 10/14/24 1426 TSH HgB A1c 5.60 % 4.80 - 5.60 10/14/24 1426 Varicella IgG Hemoglobinopathy Fractionation Hemoglobinopathy (genetic testing) Cystic fibrosis Spinal muscular atrophy Fragile X testing Test Value Reference Range Date Time NIPT MSAFP AFP-4 RhD Type 2nd and 3rd Trimester Test Value Reference Range Date Time Hemoglobin (repeated) Hematocrit (repeated) Platelets 306 10*3/mm3 140 - 450 10/14/24 1426 Glucose challenge test Antibody Screen (repeated) 3rd TM syphilis scrn (repeated) RPR 3rd TM syphilis scrn (repeated) TP-Ab 3rd TM syphilis screen TB-Ab (FTA) Syphilis cascade test TP-Ab (EIA) Syphilis cascade TPPA GTT Fasting GTT 1 Hr GTT 2 Hr GTT 3 Hr Group B Strep Other testing Test Value Reference Range Date Time Parvo IgG CMV IgG Drug Screening Test Value Reference Range Date Time Amphetamine Screen Negative Negative 10/14/24 1426 Barbiturate Screen Negative Negative 10/14/24 1426 Benzodiazepine Screen Negative Negative 10/14/24 1426 Methadone Screen Negative Negative 10/14/24 1426 Phencyclidine Screen Negative Negative 10/14/24 1426 Opiates Screen Negative Negative 10/14/24 1426 THC Screen Negative Negative 10/14/24 1426 Cocaine Screen Negative Negative 10/14/24 1426 Propoxyphene Screen Buprenorphine Screen Negative Negative 10/14/24 1426 Methamphetamine Screen Negative Negative 10/14/24 1426 Oxycodone Screen Negative Negative 10/14/24 1426 Tricyclic Antidepressants Screen Negative Negative 10/14/24 1426 Legend ^: Historical External Results Outside Results - Transcribed From Office Records - See Scanned Records For Details Test Value Date Time ABO O 10/14/24 1426 Rh Positive 10/14/24 1426 Antibody Screen Negative 10/14/24 1426 Varicella IgG Rubella 1.63 index 10/14/24 1426 Hgb 11.3 g/dL 10/14/24 1426 Hct 35.9 % 10/14/24 1426 HgB A1c 5.60 % 10/14/24 1426 1h GTT 3h GTT Fasting 3h GTT 1 hour 3h GTT 2 hour 3h GTT 3 hour Gonorrhea (discrete) Negative 10/14/24 1426 Chlamydia (discrete) Negative 10/14/24 142 RPR Syphils cascade: TP-Ab (FTA) Non-Reactive 10/14/241425 TP-Ab Non-Reactive 10/14/24 142 TP-Ab (EIA) TPPA HBsAg Non-Reactive 10/14/24 142 Herpes Simplex Virus PCR Herpes Simplex VIrus Culture HIV Non-Reactive 10/14/24 142 Hep C RNA Quant PCR Hep C Antibody Non-Reactive 10/14/24 1426 AFP NIPT Cystic Fibrosis (Megan) Cystic Fibroisis Spinal Muscular atrophy Fragile X Group B Strep GBS Susceptibility to Clindamycin GBS Susceptibility to Erythromycin Fibronectin Genetic Testing, Maternal Blood Drug Screening Test Value Date Time Urine Drug Screen Amphetamine Screen Negative 10/14/24 1426 Barbiturate Screen Negative 10/14/24 1426 Benzodiazepine Screen Negative 10/14/24 1426 Methadone Screen Negative 10/14/24 1426 Phencyclidine Screen Negative 10/14/24 1426 Opiates Screen Negative 10/14/24 1426 THC Screen Negative 10/14/24 1426 Cocaine Screen Propoxyphene Screen Buprenorphine Screen Negative 10/14/24 1426 Methamphetamine Screen Oxycodone Screen Negative 10/14/24 1426 Tricyclic Antidepressants Screen Negative 10/14/24 1426 Legend ^: Historical Past OB History: OB History Para Term AB Living 3 2 0 2 0 1 SAB IAB Ectopic Molar Multiple Live Births 0 0 0 0 0 1 # Outcome Date GA Lbr Manpreet/2nd Weight Sex Type Anes PTL Lv 3 Current 2 05/08/23 35w0d 3118 g (6 lb 14 oz) M Vag-Spont N KARLEE Complications: Severe preeclampsia 1 06/11/22 26w4d / 00:20 730 g (1 lb 9.8 oz) F Vag-Breech EPI Y FD Name: AGUSTIN,PENDING FD Apgar1: 0 Apgar5: 0 Past Medical History: Past Medical History: Diagnosis Date Anxiety Preeclampsia 2022 Past Surgical History Past Surgical History: Procedure Laterality Date OTHER SURGICAL HISTORY Right thumb surgery to correct placement/release after WISDOM TOOTH EXTRACTION Family History: History reviewed. No pertinent family history. Social History: reports that she has never smoked. She has never been exposed to tobacco smoke. Candice never used smokeless tobacco. reports no history of alcohol use. reports no history of drug use. General ROS: Pertinent items are noted in HPI Objective Vital Signs Range for the last 24 hours Temperature: Temp Source: BP: BP: (106-111)/(59-64) 106/60 Pulse: Heart Rate: [98] 98 Respirations: Resp: [18] 18 SPO2: SpO2: [98 %] 98 % O2 Amount (l/min): O2 Devices Device (Oxygen Therapy): room air Weight: Weight: [112 kg (246 lb)] 112 kg (246 lb) Physical Examination: General appearance - alert, well appearing, and in no distress Abdomen - soft, nontender, nondistended, no masses or organomegaly Neurological - alert, oriented, normal speech, no focal findings or movement disorder noted Skin - normal coloration and turgor, no rashes, no suspicious skin lesions noted Presentation: Not assessed Cervix: Exam by: Dilation: Effacement: Station: Heart Rate Assessment Method: HR Assessment Method: intermittent auscultation, using Doppler Beats/min: HR (beats/min): 155 Baseline: Variability: Accels: Decels: Tracing Category: Uterine Assessment Method: Frequency (min): Ctx Count in 10 min: Duration: Intensity: Intensity by IUPC: Resting Tone: Resting Tone by IUPC: Kiana Units: Laboratory Results: none Radiology Review: none Other Studies: none Assessment & Plan Hx of preeclampsia, prior , currently , first trimester History of IUFD Abnormal genetic test during Dizziness Assessment: 1. Intrauterine at 20w0d gestation with reactive status. 2. pre-eclampsia ruled out based on all normal blood pressures during triage visit and asymptomatic 3. Obstetrical history significant for is remarkable for previous history of preeclampsia and IUFD at 26 weeks 4. GBS status: No results found for: STREPGPB Plan: 1. Discharge to home. Symptoms may be secondary to recent illness, now resolving. I was able to review her labwork done on 11/22 which was all within normal limits with no leukocytosis, normal electrolytes. Only notable finding is mild anemia, hemoglobin 10.5 2. Plan of care has been reviewed with patient and her friend 3. Risks, benefits of treatment plan have been discussed. 4. All questions have been answered. 5. Keep scheduled OB appointments, return precautions reviewed Chantell Hung MD 11/25/2024 00:52 EDT documented in this encounter Plan of Treatment Not on file documented as of this encounter Visit Diagnoses Diagnosis Abnormal genetic test during Hx of preeclampsia, prior , currently , first trimester History of IUFD Dizziness Dizziness and giddiness documented in this encounter Care Teams Inspector Soldering Relationship Specialty Start Date End Date Provider, [place] [address] PCP - General 06/10/22 documented as of this encounter
--- OUTSIDE RECORDS SUMMARY | 2024-11-25 10:28 | XMS_ITS | Data Portability ---
Author Organization [facility] ADMIN Address [address] [place] [id number] Assessment No assessment recorded. Plan of Treatment [...] Pulse oximetry Heart rate Body temperature Systolic And Diastolic Provider Name and Address Organization Details Last Updated DateTime 5 102625. 09 g 99 % 99 % 77 /min 98.6 [degF] 118/77 mm[Hg] [facility] [place] 5 18:25:42 Social History None recorded. Functional Status None recorded. Mental Status None recorded. Family History Nothing Reported. Medical History No medical history recorded. Gynecological HistoryNo gynecological history recorded. Obstetrics History GPAL:G 0 P 0 0 0 0 Past Encounters Encounter ID Performer Location Encounter Start Date Encounter Closed Date Diagnosis/Indication Diagnosis SNOMED-CT Code Diagnosis ICD10 Code Diagnosis IMO Codes Diagnosis Note [id number] Mike Phelps MD [facility] [address] [place] [address] 03/18/2024 18:21:08 03/18/2024 19:27:38 Abdominal pain 24644896 R10.9 Pt looks comfortabl e but she [...] Saldana Member ID Guarantor Name 03/24/2024 1 [facility] Bill Storey [id number] Bill Storey 03/24/2024 1 [place] [id number] Bill Storey [id number] Bill Storey Notes Date Note Type Note Provider Name and Address Organization Details Recorded Time 03/18/2024 text/html ROS as noted in the HPI Few days of nausea, not feeling well. Today developed suprapubic severe pain (10/10), now states it is 8/10. Some possible constipation. Denies possible or urinary symptoms. Mike Phelps MD [address], [place], [address], [facility] [place] [facility] [place] [facility] [place] 03/18/2024 19:38:43 OBGyn Episode No OBEpisode recorded.
--- OUTSIDE RECORDS SUMMARY | 2024-11-25 10:28 | XMS_ITS | Encounter Summary ---
Author Organization [facility] Address [address] [place] [address] Care Team Providers Care Hydraulic Pile Hammer Operator Name Role Phone Provider, No Known Primary Care Provider Unavail able Encounter Details Date Type Department Care Team (Latest Contact Info) Description 11/24/2024 Travel Social History Tobacco Use Types Packs/Day [...] on file documented as of this encounter Functional Status * Question Answer Date of Assessment Author 1. Wish to be (Past 1 Month) No 11/24/2024 9:52 PM Trini Paniagua RN 2. Non-Specific Active Suici lissette Thoughts (Past 1 Month) No 11/24/2024 9:52 PM Trini Paniagua RN * Calculated C-SSRS Risk Score (Lifetime/Recent) Answer Date of Assessment Author No Risk Indicated 11/24/2024 9:52 PM EDTrini Tidwell RN * [place] Suicide Severity Rating Scale (Screener/Recent Self-Report) Question Answer Date of Assessment Author 6. Suicidal Behavior (Lifetime) No 9:52 PM Trini Paniagua RN documented as of this encounter Plan of Treatment Not on file documented as of this encounter Visit Diagnoses Not on filedocumented in this encounter Care Teams Hydraulic Pile Hammer Operator Relationship Specialty Start Date End Date Provider, [place] [address] PCP - General 06/10/22 documented as of this encounter
--- OUTSIDE RECORDS SUMMARY | 2024-11-25 10:28 | XMS_ITS | Clinical Summary ---
Author Organization [facility] Address [address] [place] [address] Care Team Providers Care Horse Racer Name Role Phone Provider, No Known Primary Care Provider Unavail able Allergies No known active allergies Medications Magnesium Oxide -Mg Supplement 400 (240 Mg) MG tablet 3 Active ondansetron ODT (ZOFRAN-ODT) 4 MG disintegrating tablet 3 Active aspirin 81 MG EC tablet Take 1 tablet by mouth Daily. Active Vit-Fe Fumarate-FA ( 27-1) 27-1 MG tablet tablet Take 1 tablet by mouth Daily. 11/25/19 25 Discontin ued(*Ther apy completed ) FeroSul 325 (65 Fe) MG tablet 3 11/25/19 25 Discontin ued(*Ther apy completed ) sertraline (ZOLOFT) 25 MG tablet Take 1 tablet by mouth Daily. 3 11/25/19 25 Discontin ued(*Ther apy completed ) promethazine (PHENERGAN) 12.5 MG tablet 3 11/25/19 25 Discontin ued(*Ther apy completed ) butalbital-acetami nophen-caffeine (Fioricet) 50-300-40 MG capsule capsuleIndications :Intractable headache, unspecified chronicity pattern, unspecified headache type Take 1 capsule by mouth Every 4 (Four) Hours As Needed (1 to 2 tablets as needed for headache.). 30 capsule 4 11/25/19 25 Discontin ued(*Ther apy completed ) Active Problems Problem Noted Date Diagnosed Date Dizziness 11/25/2024 Postural hypotension 04/22/2023 Third trimester 03/25/2023 Assessment [...] severe preeclampsia. 01/01/2023 Abnormal genetic test during 3 Assessment & Plan (04/02/2023 8:30 AM EST): [...] 20 weeks or more of gestation 06/10/2022 Estimated Date of Delivery Comme nts Yes 04/14/2025 Based on Patient Reported Encounters Date Type Department Care Team Description 11/24/2024 9:22 PM EDT - 11/25/2024 5:35 AM EDT Hospital Encounter [facility] [address] [place] [address] Chantell Hung MD Discharge Disposition: Home or Self Care 11/24/2024 Travel 10/14/2024 3:00 PM EDT Lab [facility] [address] [place] [address] care, subsequent , second trimester; with history [...] no 06/10/2022 Feels Threatened by Someone no 050 02/2022 Does Anyone Try to Keep You [...] Pulse 98 11/24/2024 9:55 PM EDT Temperature 36.7 C (98.1 F) 03/25/2023 5:56 PM EST Respiratory Rate 18 11/24/2024 9:54 PM EDT Oxygen Saturation 98% 11/24/2024 9:55 PM EDT Inhaled Oxygen Concentration - - Weight 112 kg (246 lb) 11/24/2024 9:51 PM EDT Height 165.1 cm (5' 5 ) 11/24/2024 9:51 PM EDT Body Mass Index 40.94 11/24/2024 9:51 PM EDT Plan of Treatment Health Maintenance Due Date Last Done Comments Annual Gynecologic Pelvic and Breast Exam 2001 MENINGOCOCCAL B VACCINE (1 of 2 - Standard) 2017 PAP SMEAR 2022 ANNUAL PHYSICAL 10/21/2022 INFLUENZA VACCINE 09/10/2024 01/29/2022, , 04/14/2015, Additional history exists RSV Vaccine - Adults (1 - Risk 1-dose series) 02/17/2025 TDAP/TD VACCINES (3 - Td or Tdap) [...] ve Non-React marianela 10/14/2024 7:24 PM EDT [facility] Blood Venipuncture / Unknown 10/14/2024 2:26 PM EDT 10/14/2024 2:30 PM EDT Narrative [facility] - 10/14/2024 7:24 PM EDT Reactive results will reflex RPR testing. us Nyasia Fraser CNM LAB BLOOD ORDERABLES Final Re sult [facility]
[address] [place] [address], [place] [phone] * Lab Collection Processing (10/14/2024 2:26 PM EDT) Blood Venipuncture / Unknown 10/14/2024 2:26 PM EDT 10/14/2024 2:30 PM EDT Nyasia Fraser [facility] BLOOD ORDERABLES Final Re sult [facility]
[address] [place] [address], * HIV-1 / O / 2 Ag / Antibody 4th Generation (10/14/2024 2:26 PM EDT) HIV DUO Non-Reacti ve Non-Reacti ve 10/14/2024 7:24 PM EDT [facility] Blood Venipuncture / Unknown 10/14/2024 2:26 PM EDT 10/14/2024 2:30 PM EDT Narrative [facility] - 10/14/2024 7:24 PM EDT The HIV antibody/antigen combo assay is a qualitative assay for HIV that includes the p24 antigen as well as antibodies to HIV types 1 and 2. This test is intended to be used as a screening assay in the diagnosis of HIV infection in patients over the age of 2. Nyasia Fraser [facility] BLOOD ORDERABLES Final Re sult Performing Organization Address City/[facility]/ZIP Co de Phone Number [facility]
[address] [place] [address], * Chlamydia trachomatis, Neisseria gonorrhoeae, Trichomonas vaginalis, [...] - 10/18/2024 6:08 AM EDT Performed at: [address] [place] [address] [place] [id number] Director Of Software Development: Roxanne Walter MD, Phone: [phone] Nyasia Fraser CNM MICROBIOLOGY - GENERAL ORDERA BLES Final Result [facility] [address] [place] [address], [place] [phone] * Hepatitis C Antibody (10/14/2024 2:26 PM EDT) [facility] Hepatitis C Ab Non-Reacti ve Non-Reacti ve 10/14/2024 7:24 PM EDT [facility] Blood Venipuncture / Unknown 10/14/2024 2:26 PM EDT 10/14/2024 2:30 PM EDT Nyasia Fraser CNM LAB BLOOD ORDERABLES Final Re sult [facility]
[address] [place] [address], [place] [phone] * Protein / Creatinine Ratio, Urine - Urine, Clean Catch (10/14/2024 2:26 PM EDT) [facility] Protein/Creati nine Ratio, Urine 84.1 0.0 - 200.0 mg/G Crea 10/15/2024 12:10 AM EDT [facility] Creatinine, Urine 302.1 mg/dL 10/15/2024 12:10 AM EDT [facility] Total Protein, Urine 25.4 mg/dL 10/15/2024 12:10 AM EDT [facility] Urine Urine specimen obtained by clean catch procedure / Unknown Collection / Unknown 10/14/2024 2:26 PM EDT 10/14/2024 2:30 PM EDT Nyasia Fraser RAMOSBernadine URINE ORDERABLES Final Result [facility]
[address] [place] [address], [place] [phone] * Urine Drug Screen - Urine, Clean Catch (10/14/2024 2:26 PM EDT) THC, Screen, Urine Negative Negative 2024 6:31 PM EDT [facility] Phencyclidine (PCP), Urine Negative Negative 10/14/2024 6:31 PM EDT [facility] Cocaine Screen, Urine Negative Negative 10/14/2024 6:31 PM EDT [facility] Methamphetamine, Ur Negative Negative 10/14 6:31 PM EDT [facility] Opiate Screen Negative Negative 10/14/2024 6:31 PM EDT [facility] Amphetamine Screen, Urine Negative Negative 10/14/2024 6:31 PM EDT [facility] Benzodiazepine Screen, Urine Negative Negative 10/14/2024 6:31 PM EDT [facility] Tricyclic Antidepressants Screen Negative Negative 10/14/2024 6:31 PM EDT [facility] Methadone Screen, Urine Negative Negative 10/14/2024 6:31 PM EDT [facility] Barbiturates Screen, Urine Negative Negative 10/14/2024 6:31 PM EDT [facility] Oxycodone Screen, Urine Negative Negative 10/14/2024 6:31 PM EDT [facility] Buprenorphine, Screen, Urine Negative Negative 10/14/2024 6:31 PM EDT [facility] Urine Urine specimen obtained by clean catch procedure / Unknown Collection / Unknown 10/14/2024 2:26 PM EDT 10/14/2024 2:30 PM EDT Narrative [facility] - 10/14/2024 6:31 PM EDT [...] test, particularly when unconfirmed results are used. [facility] Bria CNM URINE ORDERABLES Final Result Performing Organization Address City/[facility]/ZIP Co de Phone Number [facility]
[address] [place] [address], [place] [phone] * ABO / Rh (10/14/2024 2:26 PM EDT) ABO Type O 10/14/2024 3:13 PM EDT [facility] RH type Positive 10/14/2024 3:13 PM EDT [facility] Blood Venipuncture / Unknown 10/14/2024 2:26 PM EDT 10/14/2024 2:30 PM EDT [facility] Niesha BargerBanner BLOOD BANK TEST ORDERABLES Fi nal Result [facility]
[address] [place] [address], [place] [phone] * Fentanyl, Urine - Urine, Clean Catch (10/14/2024 2:26 PM EDT) Fentanyl, Urine Negative Negative 10/14/2024 6:56 PM EDT [facility] Urine Urine specimen obtained by clean catch procedure / Unknown Collection / Unknown 10/14/2024 2:26 PM EDT 10/14/2024 2:30 PM EDT [facility] - 10/14/2024 6:56 PM EDT [...] test, particularly when unconfirmed results are used. [facility] CNM URINE ORDERABLES Final Result Performing Organization Address City/[facility]/ZIP Co de Phone Number [facility]
[address] [place] [address], * Rubella Antibody, IgG (10/14/2024 2:26 PM EDT) Rubella Antibodies, IgG 1.63 Immune >0.99 index 10/15/2024 8:12 AM EDT [facility] Comment: Non-immune <0.90 Equivocal 0.90 - 0.99 Immune >0.99 Blood Venipuncture / Unknown 10/14/2024 2:26 PM EDT 10/14/2024 2:30 PM EDT [facility] - 10/15/2024 8:12 AM EDT Performed at: [address] [place] [id number] Director Of Software Development: Lalo Cruz PhD, Phone: [phone] StowThatbryce Fraser [facility] BLOOD ORDERABLES Final Re sult Performing Organization Address City/[facility]/ZIP Co de Phone Number [facility] [address] [place] [address], [place] [phone] * Hepatitis B Surface Antigen (10/14/2024 2:26 PM EDT) Hepatitis B Surface Ag Non-Reacti ve Non-Reacti ve 10/14/2024 7:20 PM EDT [facility] Blood Venipuncture / Unknown 10/14/2024 2:26 PM EDT 10/14/2024 2:30 PM EDT Nyasia Fraser [facility] BLOOD ORDERABLES Final Re sult [facility]
[address] [place] [address], * (ABNORMAL) CBC (No Diff) (10/14/2024 2:26 PM EDT) WBC 8.84 3.40 - 10.80 10*3/mm3 10/14/2024 6:41 PM EDT [facility] RBC 4.29 3.77 - 5.28 10*6/mm3 10/14/2024 6:41 PM EDT [facility] Hemoglobin 11.3(L) 12.0 - 15.9 g/dL 10/14/2024 6:41 PM EDT [facility] Hematocrit 35.9 34.0 - 46.6 % 10/14/2024 6:41 PM EDT [facility] MCV 83.7 79.0 - 97.0 fL 10/14/2024 6:41 PM EDT [facility] MCH 26.3(L) 26.6 - 33.0 pg 10/14/2024 6:41 PM EDT [facility] MCHC 31.5 31.5 - 35.7 g/dL 10/14/2024 6:41 PM EDT [facility] RDW 17.1(H) 12.3 - 15.4 % 10/14/2024 6:41 PM EDT [facility] RDW-SD 51.1 37.0 - 54.0 fl 10/14/2024 6:41 PM EDT [facility] MPV 10.4 6.0 - 12.0 fL 10/14/2024 6:41 PM EDT [facility] Platelets 306 140 - 450 10*3/mm3 10/14/2024 6:41 PM EDT [facility] Blood Venipuncture / Unknown 10/14/2024 2:26 PM EDT 10/14/2024 2:30 PM EDT Paullogan Scherer Bria RAMOS LAB BLOOD ORDERABLES Final Re sult Performing Organization Address City/[facility]/ZIP Co de Phone Number [facility]
[address] [place] [address], [place] [phone] * Antibody Screen (10/14/2024 2:26 PM EDT) Antibody Screen Negative 10/14/2024 3:29 PM EDT [facility] Blood Venipuncture / Unknown 10/14/2024 2:26 PM EDT 10/14/2024 2:30 PM EDT Nyasia Bennettlee [facility] BLOOD BANK TEST ORDERABLES Fi nal Result Performing Organization Address [facility] Co de Phone Number [facility]
[address] [place] [address], [place] [phone] * Urine Culture - Urine, Urine, Clean Catch (10/14/2024 2:26 PM EDT) Urine Culture No growth TAVARES 10/16/2024 3:54 AM EDT [facility] Urine Urine specimen obtained by clean catch procedure / Unknown Collection / Unknown 10/14/2024 2:26 PM EDT 10/14/2024 2:30 PM EDT Nyasia Fraser RAMOS MICROBIOLOGY - GENERAL ORDERA BLES Final Result Performing Organization Address City/[facility]/ZIP Co de Phone Number [facility]
[address] [place] [address], [place] [phone] * Uric Acid (10/14/2024 2:26 PM EDT) Uric Acid 3.8 2.4 - 5.7 mg/dL 10/14/2024 7:21 PM EDT [facility] Blood Venipuncture / Unknown 10/14/2024 2:26 PM EDT 10/14/2024 2:30 PM EDT us Nysaia BEASLEY LAB BLOOD ORDERABLES Final Re sult Performing Organization Address City/[facility]/ZIP Co de Phone Number [facility]
[address] [place] [address], [place] [phone] * ALT (10/14/2024 2:26 PM EDT) ALT (SGPT) 13 1 - 33 U/L 10/14/2024 7:21 PM EDT [facility] Blood Venipuncture / Unknown 10/14/2024 2:26 PM EDT 10/14/2024 2:30 PM EDT us Nyasia BEASLEY LAB BLOOD ORDERABLES Final Re sult Performing Organization Address [facility] Co de Phone Number [facility]
[address] [place] [address], [place] [phone] * AST (10/14/2024 2:26 PM EDT) AST (SGOT) 12 1 - 32 U/L 10/14/2024 7:21 PM EDT [facility] Blood Venipuncture / Unknown 10/14/2024 2:26 PM EDT 10/14/2024 2:30 PM EDT us Nyasia BEASLEY LAB BLOOD ORDERABLES Final Re sult Performing Organization Address City/[facility] Co de Phone Number [facility]
[address] [place] [address], [place] [phone] * Lactate Dehydrogenase (10/14/2024 2:26 PM EDT) LDH 175 135 - 214 U/L 10/14/2024 7:21 PM EDT [facility] Blood Venipuncture / Unknown 10/14/2024 2:26 PM EDT 10/14/2024 2:30 PM EDT [facility] BLOOD ORDERABLES Final Re sult Performing Organization Address City/[facility]/ZIP Co de Phone Number [facility]
[address] [place] [address], * Hemoglobin A1c (10/14/2024 2:26 PM EDT) [facility] Hemoglobin A1C 5.60 4.80 - 5.60 % 10/14/2024 7:41 PM EDT [facility] Blood Venipuncture / Unknown 10/14/2024 2:26 PM EDT 10/14/2024 2:30 PM EDT Narrative [facility] - 10/14/2024 7:41 PM EDT Hemoglobin A1C Ranges: Increased Risk for Diabetes 5.7% to 6.4% Diabetes >= 6.5% Diabetic Goal < 7.0% [facility] BLOOD ORDERABLES Final Re sult [facility]
[address] [place] [address], * Glucose, Random (10/14/2024 2:26 PM EDT) Pathologist [facility] Glucose 90 65 - 99 mg/dL 10/14/2024 7:21 PM EDT [facility] Blood Venipuncture / Unknown 10/14/2024 2:26 PM EDT 10/14/2024 2:30 PM EDT us Nyasia Fraser CNM LAB BLOOD ORDERABLES Final Re sult [facility]
[address] [place] [address], [place] [phone] from Last 3 Months Insurance [facility] [employer] PPO Advance Directives * CPR (Attempt to [...] Release to patient: Routine Release Care Teams Horse Racer Relationship Specialty Start Date End Date Provider, No Known [facility] [place] [address] PCP - General 06/10/22
--- OUTSIDE RECORDS SUMMARY | 2024-11-25 10:28 | XMS_ITS | Encounter Summary ---
Author Organization [facility] Address [address] [place] [address] Care Team Providers Care School Psychology Specialist Name Role Phone Provider, No Known [...] on filedocumented in this encounter Care Teams School Psychology Specialist Relationship Specialty Start Date End Date Provider, No Known [place] [phone] PCP - General 06/10/22 documented as of this encounter
--- NOTE | 2024-11-25 10:30 | US_ITS ---
PROCEDURE: US OB /MATERNAL DETAIL CLINICAL INDICATION: schedule 20wk anatomy scan in 2wks COMPARISON: No exams were available for comparison FINDINGS: Transabdominal sonographic images of the pelvis were obtained. From her established due date she is 20 weeks 0 days. Single viable intrauterine gestation. Cephalic position. Placenta: Anteriorplacenta grade 1. There is an average amount of fluid. The cervix appears satisfactory. Closed and measuring 3.03 cm in length. Complete survey performed and was unremarkable on the submitted images as in PACS. No discrete anomalies identified on survey imaging by technologist. Active fetus. Three-vessel cord with satisfactory umbilical cord insertion. 4- chamber heart noted. Situs, aortic arch, LVOT, RVOT, three-vessel view appear normal. Survey of brain & ventricles Unremarkable. Cerebellum, thalamus, choroid plexus, cisterna magna appear normal. Face and neck survey unremarkable. Profile, nasion, lips and nose appeared normal. Diaphragm and chest views unremarkable. Abdomen: Both kidneys noted and unremarkable. Stomach and bladder noted and satisfactory. Spine: Survey of the spine satisfactory with no anomalies identified nor imaged. Cervical, thoracic, lower spine appear normal. Both arms and legs noted. Amniotic Fluid: Adequate. MVP 4.67 cm Measurements: Average ultrasound age 19weeks 5days. Estimated due date by ultrasound age 0304/16/2025. Estimated weight 306g BPD = 19weeks 6days HC = 19weeks 3days AC = 19weeks 6days FL = 19weeks 5days Growth Percentile= 28 Heart Rate = seen but rate not documented Cerebellum = 20weeks 0 days Humerus = 19weeks 6days HC/AC is 1.16 FL/BPD is 0.69 FL/AC is 0.22 IMPRESSION: 1. Viable fetus in the cephalic presentation with anterior placenta grade 1. 2. The fluid is within normal limits with an MVP 4.67 cm. 3. Anatomic scan appears normal. 4. Biometry is consistent with the dates. Dictated by: Anthony Lewis MD 11/25/2024 16:43 Anthony Lewis MD in OV 11/25/2024 16:43
[2024-11-25 15:34] LABS: Total Protein 24 Hour,Urine 30 mg/24 hr (40-90); Total Volume,Urine 375 mL (600-1600)
== END 2024-11-25 23:59 | disposition home or self-care (01) ==
PROVIDERS: PCP Family Medicine; Visit Provider Obstetrics & Gynecology
DX: O99.212 Obesity complicating pregnancy, second trimester (principal); E66.9 Obesity, unspecified; O09.292 Supervision of pregnancy with other poor reproductive or obstetric history, second trimester; O16.2 Unspecified maternal hypertension, second trimester; Z3A.19 19 weeks gestation of pregnancy
CPT/HCPCS: 76811; 82570; 84155

== ENCOUNTER 2024-12-28 15:12 | Outpatient (CLI) | payer BC, SELFPAY ==
[2024-12-28] MEDS: ACETAMINOPHEN 500MG TAB 1000 MG PO (15:40)
[2024-12-28] MEDS: LACTATED RINGERS 1000ML 1,000 ML 999 ML IV (15:52)
[2024-12-28 16:18] VITALS: BMI 40.7
[2024-12-28 16:31] LABS: Microscopic, Urine URINE MICROSCOPIC (MICROSCOPIC)
[2024-12-28 16:34] LABS: Albumin Level 4.0 g/dl (3.5-5.0); Chloride 102 mmol/L (98-107); Potassium 4.2 mmoL/L (3.5-5.1); Sodium 137 mmol/L (136-145)
[2024-12-28 16:36] LABS: Bilirubin,Urine Negative (Negative); Color,Urine YELLOW (Yellow); Glucose,Urine (UA) Negative (Negative); Ketones,Urine 1+ (Negative); Leukocyte Esterase,Urine 1+ (Negative); PH,Urine 8.0 (5.0-8.5); Protein,Urine TRACE (Negative); Specific Gravity, Urine 1.020 (1.005-1.030); Urobilinogen,Urine 0.2 EU/dl (0.2)
[2024-12-28 16:37] LABS: Alanine Aminotransferase 10 U/L (12-78); Albumin/Globulin Ratio 1.1 (1.1-1.8); Alkaline Phosphatase 118 U/L (38-126); Anion Gap 15.2 mEq/L (5-15); Aspartate Amino Transferase 21 U/L (14-36); Bilirubin,Total 0.4 mg/dl (0.2-1.3); Blood Urea Nitrogen 6 mg/dl (7-17); Calcium 9.0 mg/dl (8.4-10.2); Carbon Dioxide 24 mmol/L (22.0-30.0); Creatinine Clearance Estimated 307 mL/min (50-200); Creatinine,Serum 0.50 mg/dl (0.52-1.04); Estimated Glomerular Filt Rate 153 ml/min (>60); GFR (African American) 185 ML/MIN (>60); Globulin 3.6 g/dL (1.3-3.2); Glucose 92 mg/dl (74-100); Total Protein,Serum 7.6 g/dl (6.3-8.2)
[2024-12-28 17:07] LABS: Bacteria,Urine 4+ /lpf; Mucus,Urine 2+ /lpf; WBC,Urine 20-50 #/hpf (0-3)
== END 2024-12-28 18:08 | disposition home or self-care (01) ==
LOC: OBOUT 15:13 → OB 15:14
PROVIDERS: PCP Family Medicine; Visit Provider Obstetrics & Gynecology
DX: O21.2 Late vomiting of pregnancy (principal); O99.891 Other specified diseases and conditions complicating pregnancy; R51.9 Headache, unspecified; Z3A.24 24 weeks gestation of pregnancy
CPT/HCPCS: 80053; 81001; 87086; 99213; J7120

== ENCOUNTER 2025-01-27 12:34 | Outpatient (CLI) | payer BC, SELFPAY ==
--- OUTSIDE RECORDS SUMMARY | 2024-12-09 11:00 | XMS_ITS | Encounter Summary ---
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 Name Role Phone Provider, No Known Primary Care Provider Unavail able Reason for Referral * Diagnostic Imaging (Routine) - Closed Specialty Diagnoses / Procedures Referred By Nathan ballard Referred To Contact Radiology Diagnoses Hx of preeclampsia, prior , currently , first trimester IUFD at 20 weeks or more of gestation History of delivery, currently Obesity in , antepartum Procedures [facility] [place] Jerome Mccarthy DO [address] [place] [address] Phone: tel: fax: [facility] [address] [place] [address] Phone: tel: Referral ID Status Reason Start Date Expiration Date Visits Re quested Visits Authorized [id number] Closed 11/26/2024 02/25/2026 1 1 Reason for Visit * Diagnostic Imaging (Routine) - Closed Specialty Diagnoses / Procedures Referred By Nathan ballard Referred To Contact Radiology Diagnoses Hx of preeclampsia, prior , currently , first trimester IUFD at 20 weeks or more of gestation History of delivery, currently Obesity in , antepartum Procedures [facility] [place] Jerome Mccarthy DO [address] [place] [address] Phone: tel: fax: [facility] [address] [place] [address] Phone: tel: Referral ID Status Reason Start Date Expiration Date Visits Re quested Visits Authorized [id number] Closed 11/26/2024 02/25/2026 1 1 Encounter Details Date Type Department Care Team (Latest Contact Info) Description 12/09/2024 12:00 PM EDT - 12/09/2024 11:59 PM EDT Hospital Encounter [facility] [address] [place] [id number] Jerome Mccarthy DO [address] [place] [address] Hx of preeclampsia, prior , currently , first trimester; IUFD at 20 weeks or more of gestation; History of delivery, currently ; Obesity in , antepartum Discharge Disposition: Home or Self Care Social [...] Information Value Date Recorded Sex Assigned at Female 12/06/2024 8:51 AM EDT Legal Sex Female 11:52 AM EDT Gender Identity Not on file Sexual Orientation Not on file documented as of this encounter Medications at Time of Discharge aspirin 81 MG EC tabletIndications:Hx of preeclampsia, prior , currently , second trimester Take 2 tablets by mouth Daily. 60 tablet 6 12/09/2024 Magnesium Oxide -Mg Supplement 400 (240 Mg) MG tablet 11/05/2022 ondansetron ODT (ZOFRAN-ODT) 4 MG disintegrating tablet 11/19/2022 documented as of this encounter Plan of Treatment Upcoming Encounters Date Type Department Care Team (Late st Contact Info) Description 02/08/2025 3:00 PM EST Office Visit [facility] [address] [facility] [address] [place] [address] 02/08/2025 3:00 PM EST Appointment [facility] [address] [place] [address] documented as of this encounter Procedures Procedure Name Priority Date/Time Associated Diagnosis Comments [facility] Routine 12/09/2024 1:31 PM EDT Hx of preeclampsia, prior , currently , first trimester IUFD at 20 weeks or more of gestation History of delivery, currently Obesity in , antepartum documented in this encounter Results * [facility] (12/09/2024 1:31 PM EDT) Anatomical Region Laterality Modality Ultrasound 12/09/2024 12:4 4 PM EDT Narrative 12/09/2024 1:54 PM EDT PAT NAME: RAMIREZ DARDEN MED REC#: [id number] DA: 2000 PAT GEND: F PAT TYPE: O EXAM TRAVIS: [id number] REF PHYS JEROME MCCARTHY Comparison Studies There are no relevant prior studies to which this study is being compared Patient Status Outpatient Indication ======== Hx IUFD at 26 weeks, hx preeclampsia, hx PTD, [place] Maternal Assessment Height 165 cm Height (ft) 5 ft Height (in) 5 in Weight 112 kg Weight (lb) 248 lb BMI 41.32 kg/m Method ======= Transabdominal ultrasound examination ========= Rosado . Number of fetuses: 1 Dating ====== Method of dating: based on stated TANYA GA by prior assessment 22 w + 0 d TANYA by prior assessment: 04/14/2025 Ultrasound examination on: 12/09/2024 GA by U/S based upon: AC, BPD, Femur, HC GA by U/S 21 w + 5 d TANYA by U/S: 04/16/2025 Assigned: based on stated TANYA, selected on 12/09/2024 Assigned GA 22 w + 0 d Assigned TANYA: 04/14/2025 length 280 d Biometry Standard BPD 51.2 mm 21w 4d 28% Hadlock OFD 69.8 mm 23w 2d 87% Rhiannon HC 194.4 mm 21w 5d 25% Hadlock Cerebellum tr 24.0 mm 22w 0d 75% Hill AC 165.1 mm 21w 4d 28% Hadlock Femur 37.4 mm 21w 6d 37% Hadlock Humerus 34.8 mm 21w 6d 47% Rhiannon HC / AC 1.18 EFW 445 g 21w 4d 30% Hadlock EFW (lb) 1 lb EFW (oz) 0 oz EFW by: Hadlock ([id number]) Extended Tibia 32.5 mm 22w 0d 57% Rhiannon Fibula 32.5 mm 21w 5d 45% Rhiannon Radius 28.7 mm 20w 6d 37% Rhiannon Ulna 32.2 mm 22w 2d 37% Rhiannon Cav. septi pel. tr 4.2 mm Microwave Oven Assembler 5.6 mm CM 5.9 mm 65% Nicolaides Head / Face / Neck Cephalic index 0.73 6% Nicolaides Extremities / Bony Struc FL / BPD 0.73 FL / HC 0.19 FL / AC 0.23 Other Structures FHR 157 bpm General Evaluation Cardiac activity present. FHR 157 bpm. movements present. Presentation breech. Placenta Placental site: anterior. Umbilical cord Cord vessels: 3 vessel cord. Insertion site: placental insertion: suboptimal. Amniotic fluid Amount of AF: normal. MVP 5.4 cm. Anatomy Cranium: Appears normal Lateral ventricles: Appears normal Choroid plexus: Appears normal Midline falx: Appears normal Cavum septi pellucidi: Appears normal Cerebellum: Appears normal Cisterna magna: Appears normal Head / Neck Rt lateral ventricle: Appears normal Lt lateral ventricle: Appears normal Rt choroid plexus: Appears normal Lt choroid plexus: Appears normal Vermis: Appears normal Neck: Appears normal Nuchal fold: Appears normal Lips: suboptimal Profile: suboptimal Nose: suboptimal Face Nose: Nasal bone present Palate: Appears normal Maxilla: suboptimal Mandible: suboptimal Orbits: Appears normal Lens: Normal 4-chamber view: Appears normal RVOT view: suboptimal LVOT view: suboptimal Heart / Thorax Aortic arch view: visualized Ductal arch view: suboptimal SVC: normal IVC: normal 3-vessel view: suboptimal 2-[id number]-[id number] view: suboptimal Rt lung: Appears normal Lt lung: normal Diaphragm: Appears normal Diaphragm: Intact Cord insertion: Appears normal Stomach: Appears normal Kidneys: Appears normal Bladder: Appears normal Genitals: Appears normal Abdomen Rt kidney: normal Lt kidney: normal Liver: normal Small bowel: normal Large bowel: normal Cervical spine: Appears normal Thoracic spine: Appears normal Lumbar spine: Appears normal Sacral spine: Appears normal Arms: Appears normal Legs: Appears normal Rt upper arm: Appears normal Rt forearm: Appears normal Rt hand: visualized Lt upper arm: Appears normal Lt forearm: Appears normal Lt hand: visualized Rt upper leg: Appears normal Rt lower leg: Appears normal Rt foot: Appears normal Lt upper leg: Appears normal Lt lower leg: Appears normal Lt foot: Appears normal Gender: female Wants to know gender: yes Maternal Structures Uterus / Cervix Cervix: Visualized Approach: Transabdominal Cervical length 36.4 mm Ovaries / Tubes / Adnexa Rt ovary: Not visualized Lt ovary: Not visualized Consultation / Office Visit Type: Consultation See Epic for full consult note. Impression Single, viable intrauterine at 22w0d in breech lie The placenta is anterior size is appropriate for the reported TANYA The transabdominal cervical length appears adequate The amniotic fluid volume is normal The detailed anatomic survey was limited due to positioning and challenging acoustic properties (see table) though the visualized portions appear normal No abnormalities were appreciated within the limitations of ultrasound Recommendation Follow up in 4 weeks to complete the anatomic survey and for growth assessment Coding ======= Description: [id number] Detailed Cleaning Porter: Rebekah Crawford RDMS Physician: Kyler Torrez MD Electronically signed by: Kyler Torrez MD at: 13:54 Procedure Note Kyler Torrez MD - 12/09/2024 PAT NAME: RAMIREZ DARDEN MED REC#: [id number] DA: [id number] PAT GEND: F PAT TYPE: O EXAM TRAVIS: [id number] REF PHYS JEROME MCCARTHY Comparison Studies There are no relevant prior studies to which this study is beingcompared Patient Status Outpatient Indication ======== Hx IUFD at 26 weeks, hx preeclampsia, hx PTD, [place] Maternal Assessment Gliyfp906 cm Height (ft)5 ft Height (in)5 in Ineouc532 kg Weight (lb)248 lb BMI41.32 kg/m Method ======= Transabdominal ultrasound examination ========= Rosado . Number of fetuses: 1 Dating ====== Method of dating:based on stated TANYA GA by prior [id number] w + 0 d TANYA by prior assessment:04/14/2025 Ultrasound examination on:12/09/2024 GA by U/S based upon:AC, BPD, Femur, HC GA by U/S21 w + 5 d TANYA by U/S:04/16/2025 Assigned:based on stated TANYA, selected on 12/09/2024 Assigned GA22 w + 0 d Assigned TANYA:04/14/2025 d Biometry Standard BPD51.2 mm 21w 4d 28% Hadlock OFD69.8 mm 23w 2d 87% Rhiannon HC194.4 mm 21w 5d 25% Hadlock Cerebellum tr24.0 mm 22w 0d 75% Hill AC165.1 mm 21w 4d 28% Hadlock Femur37.4 mm 21w 6d 37% Hadlock Vstunln50.8 mm 21w 6d 47% Rhiannon HC / AC1.18 RSR458 g 21w 4d 30% Hadlock EFW (lb)1 lb EFW (oz)0 oz EFW by:Hadlock ([id number]) Extended Tibia32.5 mm 22w 0d 57% Rhiannon Ibfwcb01.5 mm 21w 5d 45% Rhiannon Lljpda56.7 mm 20w 6d 37% Rhiannon Ulna32.2 mm 22w 2d 37% Rhiannon Cav. septi pel. tr4.2 mm Vp5.6 mm CM5.9 mm 65% Nicolaides Head / Face / Neck Cephalic index0.73 6% Nicolaides Extremities / Bony Struc FL / BPD0.73 FL / HC0.19 FL / AC0.23 Other Structures MFC033 bpm General Evaluation Cardiac activity present. FHR 157 bpm. movements present. Presentation breech. Placenta Placental site: anterior. Umbilical cord Cord vessels: 3 vessel cord. Insertion site: placentalinsertion: suboptimal. Amniotic fluid Amount of AF: normal. MVP 5.4 cm. Anatomy Cranium:Appears normal Lateral ventricles:Appears normal Choroid plexus:Appears normal Midline falx:Appears normal Cavum septi pellucidi:Appears normal Cerebellum:Appears normal Cisterna magna:Appears normal Head / Neck Rt lateral ventricle:Appears normal Lt lateral ventricle:Appears normal Rt choroid plexus:Appears normal Lt choroid plexus:Appears normal Vermis:Appears normal Neck:Appears normal Nuchal fold:Appears normal Lips:suboptimal Profile:suboptimal Nose:suboptimal Face Nose:Nasal bone present Palate:Appears normal Maxilla:suboptimal Mandible:suboptimal Orbits:Appears normal Lens:Normal 4-chamber view:Appears normal RVOT view:suboptimal LVOT view:suboptimal Heart / Thorax Aortic arch view:visualized Ductal arch view:suboptimal SVC:normal IVC:normal 3-vessel view:suboptimal 8-shlbzq-waqgpxo view:suboptimal Rt lung:Appears normal Lt lung:normal Diaphragm:Appears normal Diaphragm:Intact Cord insertion:Appears normal Stomach:Appears normal Kidneys:Appears normal Bladder:Appears normal Genitals:Appears normal Abdomen Rt kidney:normal Lt kidney:normal Liver:normal Small bowel:normal Large bowel:normal Cervical spine:Appears normal Thoracic spine:Appears normal Lumbar spine:Appears normal Sacral spine:Appears normal Arms:Appears normal Legs:Appears normal Rt upper arm:Appears normal Rt forearm:Appears normal Rt hand:visualized Lt upper arm:Appears normal Lt forearm:Appears normal Lt hand:visualized Rt upper leg:Appears normal Rt lower leg:Appears normal Rt foot:Appears normal Lt upper leg:Appears normal Lt lower leg:Appears normal Lt foot:Appears normal Gender:female Wants to know gender:yes Maternal Structures Uterus / Cervix Cervix:Visualized Approach:Transabdominal Cervical .4 mm Ovaries / Tubes / Adnexa Rt ovary:Not visualized Lt ovary:Not visualized Consultation / Office Visit Type: Consultation See [facility] for full consult note. Impression Single, viable intrauterine at 22w0d in breech lie The placenta is anterior size is appropriate for the reported TANYA The transabdominal cervical length appears adequate The amniotic fluid volume is normal The detailed anatomic survey was limited due to positioningand challenging acoustic properties (see table) though the visualizedportions appear normal No abnormalities were appreciated within the limitations of ultrasound Recommendation Follow up in 4 weeks to complete the anatomic survey and for fetalgrowth assessment Coding ======= Description:[id number] Detailed Cleaning Porter: Rebekah Crawford RDMS Physician: Kyler Torrez MD Electronically signed by: Kyler Torrez MD at: 13:54 Jerome Shari [facility] ORDERABLES Final Result documented in this encounter Visit Diagnoses Diagnosis Hx of preeclampsia, prior , currently , first trimester IUFD at 20 weeks or more of gestation History of delivery, currently with history of pre-term labor Obesity in , antepartum Obesity complicating , childbirth, or the puerperium, antepartum condition or complication documented in this encounter Care Teams Supervisor Ski Production Relationship Specialty Start Date End Date Provider, [place] [address] PCP - General 06/10/22 documented as of this encounter
--- OUTSIDE RECORDS SUMMARY | 2024-12-09 11:30 | XMS_ITS | Encounter Summary ---
Author Organization [facility] Address [address] [place] [address] Care Team Providers Care Form Setter Steel Forms Name Role Phone Provider, No Known Primary Care Provider Unavail able Reason for Referral * Diagnostic Imaging (Routine) - Authorized Specialty Diagnoses / Procedures Referred By Contac t Referred To Contact Radiology Diagnoses Hx of preeclampsia, prior , currently , second trimester Procedures [facility] [place] [address] [place] [address] Phone: tel: fax: [facility] [address] [place] [phone] Phone: tel: Referral ID Status Reason Start Date Expiration Date V isits Requested Visits Authorized [id number] Authorized 12/09/2024 03/10/2026 4 4 Reason for Visit * Reason Comments history IUFD Encounter Details Date Type Department Care Team (Late st Contact Info) Description 12/09/2024 12:30 PM EDT Office Visit [facility] MATERNAL MEDICINE [address] [place] [phone] Kyler Torrez MD [address] [address] Hx of preeclampsia, prior , currently , second trimester (Primary Dx); History of IUFD Social History Tobacco Use Types Packs/Day Years [...] Sign Reading Time Taken Comments Blood Pressure 113/54 12/09/2024 12:30 PM EDT Pulse - - Temperature - - Respiratory Rate - - Oxygen Saturation - - Inhaled Oxygen Concentration - - Weight 113 kg (248 lb 6.4 oz) 12/09/2024 12:30 P M EDT Height - - Body Mass Index 41.34 11/24/2024 9:51 PM EDT documented in this encounter Progress Notes * Kyler Torrez MD - 12/09/2024 1:13 PM EDTAssociated Problem(s): History of IUFD - Thought to be secondary to severe, early-onset preeclampsia - Genetic analysis WNL (46, XX) - Placental pathology report reviewed and significant for maternal vascular malperfusion; but no lesions with high recurrence risk or lesions with known interventions to lower risk * Kyler Torrez MD - 12/09/2024 12:57 PM EDTAssociated Problem(s): Hx of preeclampsia, prior , currently , second trimester - Both prior pregnancies complicated by severe preeclampsia; G1 with demise and subsequent at ~26 weeks and G2 with severe preeclampsia and indicated delivery at 35 weeks - Currently on low dose ASA (81 mg) daily - Discussed high risk of recurrence - Discussed emerging evidence that suggests that 162 mg daily may offer a stronger benefit - Reviewed triage precautions Recommendations: - Increase low dose ASA prophylaxis to 162 mg daily - Plan for serial growth ultrasound surveillance in the third trimester * Maria Dolores Bryant RN - 12/09/2024 12:30 PM EDT Pt denies complaints. Sees OB 12/13. NIPT low risk. * Kyler Torrez MD - 12/09/2024 12:30 PM EDT Images from the original note were not included. Maternal Medicine Consult Note Date: 12/09/2024 Name: Salima Darden : 2000 TANYA: Estimated Date of Delivery: 04/14/25 Referring Provider: Chely Mccarthy DO Chief Complaint history IUFD Subjective History of Present Illness: Salima Darden is a 24 y.o. at 22w0d who presents today for initial consultation given a that is complicated by history of prior IUFD (~26 weeks in G1 with severe preeclampsia),history of indicated due to severe preeclampsia (G2), and maternal obesity. Today, she is overall doing well and denies any vaginal bleeding, leakage of fluid, or regular contractions. She reports some movement. ROS: Review of Systems Constitutional: Negative for chills and fever. Eyes: Negative for visual disturbance. Respiratory: Negative for cough and shortness of breath. Cardiovascular: Negative for chest pain. Gastrointestinal: Negative for abdominal pain, nausea and vomiting. Genitourinary: Negative for vaginal bleeding. Skin: Negative for rash. Neurological: Negative for headache. Psychiatric/Behavioral: The patient is not nervous/anxious. Past Medical History: Diagnosis Date Abnormal genetic test during 01/01/2023 Anxiety Preeclampsia 2022 Past Surgical History: Procedure Laterality Date OTHER SURGICAL HISTORY Right thumb surgery to correct placement/release after WISDOM TOOTH EXTRACTION OB History 3 Para 2 Term 0 2 AB 0 Living 1 SAB 0 IAB 0 Ectopic 0 Molar 0 Multiple 0 Live Births 1 Current Outpatient Medications: aspirin 81 MG EC tablet, Take 2 tablets by mouth Daily., Disp: 60 tablet, Rfl: 6 Magnesium Oxide -Mg Supplement 400 (240 Mg) MG tablet, , Disp: , Rfl: ondansetron ODT (ZOFRAN-ODT) 4 MG disintegrating tablet, , Disp: , Rfl: Objective Vital Signs BP 113/54 Wt 113 kg (248 lb 6.4 oz) Estimated body mass index is 41.34 kg/m?? as calculated from the following: Height as of 11/24/24: 165.1 cm (65 ). Weight as of this encounter: 113 kg (248 lb 6.4 oz). Physical Exam Vitals and nursing note reviewed. Constitutional: General: She is not in acute distress. Appearance: Normal appearance. She is obese. HENT: Head: Normocephalic. Pulmonary: Effort: Pulmonary effort is normal. No respiratory distress. Abdominal: Tenderness: There is no abdominal tenderness. Skin: General: Skin is warm and dry. Neurological: Mental Status: She is alert. Psychiatric: Mood and Affect: Mood normal. Behavior: Behavior normal. Ultrasound Impression: Single, viable intrauterine at 22w0d in breech lie The placenta is anterior size is appropriate for the reported TANYA The transabdominal cervical length appears adequate The amniotic fluid volume is normal The detailed anatomic survey was limited due to positioning and challenging acoustic properties (see table) though the visualized portions appear normal No abnormalities were appreciated within the limitations of ultrasound Assessment and Plan Salima Darden is a 24 y.o. at 22w0d with a complicated by the following: Diagnoses and all orders for this visit: 1. Hx of preeclampsia, prior , currently , second trimester (Primary) Assessment & Plan: - Both prior pregnancies complicated by severe preeclampsia; G1 with demise and subsequent at ~26 weeks and G2 with severe preeclampsia and indicated delivery at 35 weeks - Currently on low dose ASA (81 mg) daily - Discussed high risk of recurrence - Discussed emerging evidence that suggests that 162 mg daily may offer a stronger benefit - Reviewed triage precautions Recommendations: - Increase low dose ASA prophylaxis to 162 mg daily - Plan for serial growth ultrasound surveillance in the third trimester Orders: - aspirin 81 MG EC tablet; Take 2 tablets by mouth Daily. Dispense: 60 tablet; Refill: 6 - [facility] [place]; Standing 2. History of IUFD Assessment & Plan: - Thought to be secondary to severe, early-onset preeclampsia - Genetic analysis WNL (46, XX) - Placental pathology report reviewed and significant for maternal vascular malperfusion; but no lesions with high recurrence risk or lesions with known interventions to lower risk Follow Up Return in about 5 weeks (around 01/13/2025) for growth ultrasound. I spent 30 minutes caring for the patient on the day of service. This included: obtaining or reviewing a separately obtained medical history, reviewing patient records, performing a medically appropriate exam and/or evaluation, counseling or educating the patient/family/caregiver, ordering medications, labs, and/or procedures and documenting such in the medical record. This does not include time spent on review and interpretation of other tests such as ultrasound or the performance of other procedures such as amniocentesis or CVS. Kyler Torrez MD, FACOG Maternal Medicine, [facility] [place] documented in this encounter Plan of Treatment Upcoming Encounters Date Type Department Care Team (Late st Contact Info) Description 02/08/2025 3:00 PM EST Office Visit [facility] [address] [place] [address] [address] [place] [address] 02/08/2025 3:00 PM EST Appointment [facility] [address] [place] [phone] Scheduled Orders Name Type Priority Associated Diagnoses Orde r Schedule [facility] Imaging Routine Hx of preeclampsia, prior , currently , second trimester Every 4 Weeks for 4 Occurrences starting 12/09/2024 until 12/09/2025, 1 completed documented as of this encounter Results * [facility] (01/11/2025 3:48 PM EST) Anatomical Region Laterality Modality Ultrasound 01/11/2025 2:51 PM EST Narrative 01/12/2025 6:23 AM EST PAT NAME: SALIMA DARDEN MED REC#: [id number] DA: [id number] PAT GEND: F PAT TYPE: O EXAM TRAVIS: [id number] REF PHYS CHELY MCCARTHY Comparison Studies The findings of this study are compared to the prior ultrasound study dated 12/09/2024 Patient Status Outpatient Indication ======== Hx IUFD at 26 weeks, hx preeclampsia, hx PTD, [place] Maternal Assessment Height 165 cm Height (ft) 5 ft Height (in) 5 in Weight 113 kg Weight (lb) 249 lb BMI 41.51 kg/m Method ======= Transabdominal ultrasound examination. View: Adequate view ========= Rosado . Number of fetuses: 1 Dating ====== GA by prior assessment 26 w + 5 d TANYA by prior assessment: 04/14/2025 Ultrasound examination on: 01/11/2025 GA by U/S based upon: AC, BPD, Femur, HC GA by U/S 26 w + 4 d TANYA by U/S: 04/15/2025 Method of dating: Restore dating from previous exam Previous dating: based on stated TANYA, selected on 12/09/2024 Agreed TANYA of previous datin04/14/2025 Assigned: based on stated TANYA, selected on 12/09/2024 Assigned GA 26 w + 5 d Assigned TANYA: 04/14/2025 length 280 d Biometry Standard BPD 65.8 mm 26w 4d 33% Hadlock OFD 87.3 mm 28w 1d 89% Rhiannon HC 248.0 mm 26w 6d 30% Hadlock Cerebellum tr 29.6 mm 25w 6d 42% Hill AC 219.4 mm 26w 3d 31% Hadlock Femur 49.2 mm 26w 4d 31% Hadlock Humerus 44.9 mm 26w 5d 41% Rhiannon HC / AC 1.13 EFW 946 g 26w 2d 31% Hadlock EFW (lb) 2 lb EFW (oz) 1 oz EFW by: Hadlock ([id number]-GG-UT-FL) Extended Cav. septi pel. tr 5.6 mm Board Stacker 4.0 mm CM 5.4 mm 19% Nicolaides Nasal bone 9.1 mm Head / Face / Neck Cephalic index 0.75 17% Nicolaides Extremities / Bony Struc FL / BPD 0.75 FL / HC 0.20 FL / AC 0.22 Other Structures FHR 141 bpm General Evaluation Cardiac activity present. FHR 141 bpm. movements present. Presentation calin breech. Placenta Placental site: anterior. Amniotic fluid Amount of AF: normal. MVP 5.2 cm. MARK ANTHONY 18.0 cm. Q1 5.2 cm, Q2 5.1 cm, Q3 3.7 cm, Q4 4.1 cm. Anatomy Cranium: Normal Cavum septi pellucidi: Normal Cerebellum: Normal Cisterna magna: Normal Head / Neck Rt lateral ventricle: Normal Lt lateral ventricle: Normal Lips: Normal Profile: Normal Nose: Normal Face Palate: Appears normal Orbits: Normal Lens: Normal 4-chamber view: Appears normal RVOT view: Normal LVOT view: Normal Heart / Thorax Aortic arch view: Normal SVC: normal IVC: normal 3-vessel view: Normal 5-oitlky-pyvqott view: normal Cord insertion: Normal Stomach: Appears normal Kidneys: Appears normal Bladder: Appears normal Gender: female Wants to know gender: yes Maternal Structures Uterus / Cervix Cervical length 43.2 mm Doppler Arterial Umbilical A PI 1.17 73% López Umbilical A RI 0.71 69% López Umbilical A PS -36.78 cm/s Umbilical A ED -10.61 cm/s Umbilical A TAmax -22.46 cm/s Umbilical A MD -9.49 cm/s Umbilical A S / D 3.47 65% López Umbilical A HR 156 bpm Consultation / Office Visit Office note to follow Impression ========= Size consistent with dates. No anomalies were identified. No markers for trisomy. The cervical length appears normal. Patient counseled re signs and symptoms of labor. Recommendation We recommend evaluation in 4 weeks. Follow up appointment scheduled here in 4 weeks. Coding ====== Description: 14200-56 Follow Up Outbound Call Center Representative: Kathy Chacon RDMS Physician: Graham Helms MD, FACOG Electronically signed by: Graham Helms MD, FACOG at: 06:23 Procedure Note David Helms MD - 01/12/2025 PAT NAME: SALIMA DARDEN MED REC#: [id number] DA: [id number] PAT GEND: F PAT TYPE: O EXAM TRAVIS: [id number] REF PHYS CHELY MCCARTHY Comparison Studies The findings of this study are compared to the prior ultrasound studydated 12/09/2024 Patient Status Outpatient Indication ======== Hx IUFD at 26 weeks, hx preeclampsia, hx PTD, [place] Maternal Assessment Pqgltt255 cm Height (ft)5 ft Height (in)5 in Jnpazn887 kg Weight (lb)249 lb BMI41.51 kg/m Method ======= Transabdominal ultrasound examination. View: Adequate view ========= Rosado . Number of fetuses: 1 Dating ====== GA by prior [id number] w + 5 d TANYA by prior assessment:04/14/2025 Ultrasound examination on:01/11/2025 GA by U/S based upon:AC, BPD, Femur, HC GA by U/S26 w + 4 d TANYA by U/S:04/15/2025 Method of dating:Restore dating from previous exam Previous dating:based on stated TANYA, selected on 12/09/2024 Agreed TANYA of previous datin04/14/2025 Assigned:based on stated TANYA, selected on 12/09/2024 Assigned GA26 w + 5 d Assigned TANYA:04/14/2025 [id number] d Biometry Standard BPD65.8 mm 26w 4d 33% Hadlock OFD87.3 mm 28w 1d 89% Rhiannon HC248.0 mm 26w 6d 30% Hadlock Cerebellum tr29.6 mm 25w 6d 42% Hill AC219.4 mm 26w 3d 31% Hadlock Femur49.2 mm 26w 4d 31% Hadlock Bgyqzxn72.9 mm 26w 5d 41% Rhiannon HC / AC1.13 RJK884 g 26w 2d 31% Hadlock EFW (lb)2 lb EFW (oz)1 oz EFW by:Hadlock (DTD-EN-CT-FL) Extended Cav. septi pel. tr5.6 mm Vp4.0 mm CM5.4 mm 19% Nicolaides Nasal bone9.1 mm Head / Face / Neck Cephalic index0.75 17% Nicolaides Extremities / Bony Struc FL / BPD0.75 FL / HC0.20 FL / AC0.22 Other Structures TCH853 bpm General Evaluation Cardiac activity present. FHR 141 bpm. movements present. Presentation calin breech. Placenta Placental site: anterior. Amniotic fluid Amount of AF: normal. MVP 5.2 cm. MARK ANTHONY 18.0 cm. Q1 5.2 cm,Q2 5.1 cm, Q3 3.7 cm, Q4 4.1 cm. Anatomy Cranium:Normal Cavum septi pellucidi:Normal Cerebellum:Normal Cisterna magna:Normal Head / Neck Rt lateral ventricle:Normal Lt lateral ventricle:Normal Lips:Normal Profile:Normal Nose:Normal Face Palate:Appears normal Orbits:Normal Lens:Normal 4-chamber view:Appears normal RVOT view:Normal LVOT view:Normal Heart / Thorax Aortic arch view:Normal SVC:normal IVC:normal 3-vessel view:Normal 8-zfgofw-eyhghcj view:normal Cord insertion:Normal Stomach:Appears normal Kidneys:Appears normal Bladder:Appears normal Gender:female Wants to know gender:yes Maternal Structures Uterus / Cervix Cervical mxdwgi88.2 mm Doppler Arterial Umbilical A PI1.17 73% López Umbilical A RI0.71 69% López Umbilical A PS-36.78 cm/s Umbilical A ED-10.61 cm/s Umbilical A TAmax-22.46 cm/s Umbilical A MD-9.49 cm/s Umbilical A S / D3.47 65% López Umbilical A HR156 bpm Consultation / Office Visit Office note to follow Impression ========= Size consistent with dates. No anomalies were identified. No markers for trisomy. The cervical length appears normal. Patient counseled re signs and symptoms of labor. Recommendation We recommend evaluation in 4 weeks. Follow up appointment scheduled here in 4 weeks. Coding ====== Description:[id number] Follow Up Outbound Call Center Representative: Kathy Chacon RDMS Physician: Graham Helms MD, FACOG Electronically signed by: Graham Helms MD, FACOG at: 06:23 us Kyler Torrez MD IMG US ORDERABLES Final Res ult documented in this encounter Visit Diagnoses Diagnosis Hx of preeclampsia, prior , currently , second trimester- Primary History of IUFD documented in this encounter Care Teams Form Setter Steel Forms Relationship Specialty Start Date End Date Provider, No Known [place] [phone] PCP - General 06/10/22 documented as of this encounter
--- OUTSIDE RECORDS SUMMARY | 2025-01-11 14:36 | XMS_ITS | Encounter Summary ---
Author Organization [facility] Address [address] [place] [address] Care Team Providers Care Bologna Maker Name Role Phone Provider, No Known Primary Care Provider Unavail able Reason for Visit * Diagnostic Imaging (Routine) - Authorized Specialty Diagnoses / Procedures Referred By Contac t Referred To Contact Radiology Diagnoses Hx of preeclampsia, prior , currently , second trimester Procedures [facility] Kyler Torrez MD [address] [facility] [address] [place] [address] Phone: tel: fax: [facility] [address] [place] [address] Phone: tel: Referral ID Status Reason Start Date Expiration Date V isits Requested Visits Authorized [id number] Authorized 12/09/2024 03/10/2026 4 4 Encounter Details Date Type Department Care Team (Latest Contact Info) Description 01/11/2025 2:36 PM EST - 01/11/2025 11:59 PM EST Hospital Encounter [facility] [address] [place] [address] Chely Mccarthy DO [address] [place] [address] [address] [place] [address] Discharge Disposition: Home or Self Care Social [...] ODT (ZOFRAN-ODT) 4 MG disintegrating tablet 11/19/2022 promethazine (PHENERGAN) 12.5 MG tablet 12/21/2024 documented as of this encounter Plan of Treatment Upcoming Encounters Date Type Department Care Team (Late st Contact Info) Description 02/08/2025 3:00 PM EST Office Visit [facility] MATERNAL MEDICINE [address] [place] [address] 02/08/2025 3:00 PM EST Appointment [facility] [address] [place] [address] documented as of this encounter Procedures Procedure Name Priority Date/Time Associated Diagnosis Comments [facility] Routine 01/11/2025 3:48 PM EST Hx of preeclampsia, prior , currently , second trimester documented in this encounter Results * [facility] (01/11/2025 3:48 PM EST) Anatomical Region Laterality Modality Ultrasound 01/11/2025 2:51 PM EST Narrative 01/12/2025 6:23 AM EST PAT NAME: SALIMA DARDEN [facility] REC#: [id number] DA: [id number] PAT GEND: F PAT TYPE: O EXAM TRAVIS: [id number] REF PHYS CHELY MCCARTHY Comparison Studies The [...] EFW (oz) 1 oz EFW by: Hadlock (AQF-PW-CX-FL) Extended Cav. septi pel. tr 5.6 mm Cuff Presser 4.0 mm CM 5.4 mm 19% Nicolaides [...] SVC: normal IVC: normal 3-vessel view: Normal 4-vvjxil-iwhyonn view: normal Cord insertion: Normal Stomach: Appears [...] here in 4 weeks. Coding ====== Description: 39667-97 Follow Up Chemical Process Project Engineer: Kathy Chacon RDMS Physician: Graham Helms MD, FACOG Electronically signed by: Graham Helms MD, FACOG at: 06:23 Procedure Note David Helms MD - 01/12/2025 PAT NAME: SALIMA DARDEN MED REC#: [id number] DA: 2000 PAT GEND: F PAT TYPE: O EXAM TRAVIS: [id number] REF PHYS CHELY MCCARTHY Comparison Studies The findings of this study are compared to the prior ultrasound studydated 12/09/2024 Patient Status Outpatient Indication ======== Hx IUFD at 26 weeks, hx preeclampsia, hx PTD, [place] Maternal Assessment Neuxpu709 cm Height (ft)5 ft Height (in)5 in Njyzzc813 kg Weight (lb)249 lb BMI41.51 kg/m Method ======= Transabdominal ultrasound examination. View: Adequate view ========= Rosado . Number of fetuses: 1 Dating ====== GA by prior [id number] w + 5 d TANYA by prior [...] GA26 w + 5 d Assigned TANYA:04/14/2025 qnofrq215 d Biometry Standard BPD65.8 mm 26w 4d 33% Hadlock OFD87.3 mm 28w 1d 89% Rhiannon HC248.0 mm 26w 6d 30% Hadlock Cerebellum tr29.6 mm 25w 6d 42% Hill AC219.4 mm 26w 3d 31% Hadlock Femur49.2 mm 26w 4d 31% Hadlock Ecfekpv77.9 mm 26w 5d 41% Rhiannon HC / AC1.13 DHG260 g 26w 2d 31% Hadlock EFW (lb)2 lb EFW (oz)1 oz EFW by:Hadlock (YVX-IK-YS-FL) Extended Cav. septi pel. tr5.6 mm Vp4.0 mm CM5.4 mm 19% Nicolaides Nasal bone9.1 mm Head / Face / Neck Cephalic index0.75 17% Nicolaides Extremities / Bony Struc FL / BPD0.75 FL / HC0.20 FL / AC0.22 Other Structures ICI843 bpm General Evaluation Cardiac activity present. FHR [...] Aortic arch view:Normal SVC:normal IVC:normal 3-vessel view:Normal 0-durcdt-jqvxhgx view:normal Cord insertion:Normal Stomach:Appears normal Kidneys:Appears normal Bladder:Appears normal Gender:female Wants to know gender:yes Maternal Structures Uterus / Cervix Cervical tkzaxw45.2 mm Doppler Arterial Umbilical A PI1.17 73% [...] scheduled here in 4 weeks. Coding ====== Description:66868-22 Follow Up Chemical Process Project Engineer: Kathy Chacon RDMS Physician: Graham Helms MD, FACOG Electronically signed by: Graham Helms MD, FACOG at: 06:23 us Kyler Torrez MD IMG US ORDERABLES Final Res ult documented in this encounter Visit Diagnoses Not on filedocumented in this encounter Care Teams Bologna Maker Relationship Specialty Start Date End Date Provider, No Known [facility] [place] [address] PCP - General 06/10/22 documented as of this encounter
--- OUTSIDE RECORDS SUMMARY | 2025-01-11 14:45 | XMS_ITS | Encounter Summary ---
Author Organization [facility] Address [address] [place] [id number] Care Team Providers Care Produce Inspector Name Role Phone Provider, No Known Primary Care Provider Unavail able Reason for Visit * Reason Comments HX 26wk IUFD, MO, HX Pree w/ PTD Encounter Details Date Type Department Care Team (Late st Contact Info) Description 01/11/2025 2:45 PM EST Office Visit [facility] MATERNAL MEDICINE [address] [facility] [address] [place] [phone] David Helms MD [address] [facility] [address] [place] [address] History of IUFD (Primary Dx); Hx of preeclampsia, prior , currently , second trimester; 26 weeks gestation of ; Morbid obesity with BMI of 40.0-44.9, adult Social History Tobacco Use Types Packs/Day Years [...] Sign Reading Time Taken Comments Blood Pressure 114/52 01/11/2025 2:46 PM EST Pulse - - Temperature - - Respiratory Rate - - Oxygen Saturation - - Inhaled Oxygen Concentration - - Weight 113 kg (249 lb 3.2 oz) 01/11/2025 2:46 PM EST Height - - Body Mass Index 41.47 11/24/2024 9:51 PM EDT documented in this encounter Progress Notes * David Helms MD - 01/11/2025 3:25 PM ESTAssociated Problem(s): Hx of preeclampsia, prior , currently , second trimester Patient returns today for complicated by history of severe preeclampsia in her previous pregnancies. Most likely she had an intrauterine demise related to preeclampsia in her first and delivered at 35 weeks and her second for severe preeclampsia. Patient notes no complications currently and notes good movement. Blood pressure in our office was 114/52. Ultrasound today demonstrates a normally grown fetus with no abnormality seen. Amniotic fluid volume and umbilical artery Dopplers were normal. Cervical length appeared normal. Fetus was very active. Patient appears to be doing very well at the current time. She has no signs or symptoms of preeclampsia. We counseled her extensively over the signs and symptoms of preeclampsia and she will contact her provider immediately if she notices any of the signs or symptoms. Additionally we will rescan the patient again in 4 weeks time given her significant history of preeclampsia. Patient was counseled extensively regarding movement and will contact her provider immediately if she notices any decreased movement. * Anu Allen RN - 01/11/2025 2:45 PM EST Denies vaginal bleeding, leaking fluid, and contractions Endorses normal movement NIPT negative Next OB follow up appointment with Dr. Mccarthy on 01/17/25 * David Helms MD - 01/11/2025 2:45 PM EST Images from the original note were not included. Documentation of the ultrasound findings, images, and interpretations will be available in the patient's Viewpoint report which is located in the imaging tab in chart review. Maternal/ Medicine Follow Up Note Name: Salima Ferreira : 2000 Referring Provider: Chely Mccarthy DO Chief Complaint HX 26wk IUFD, MO, HX Pree w/ PTD Subjective History of Present Illness: Salima Ferreira is a 24 y.o. 26w5d who presents today for Hx preeclampsia TANYA: Estimated Date of Delivery: 04/14/25 ROS: As noted in HPI. Objective Vital Signs BP 114/52 Wt 113 kg (249 lb 3.2 oz) Estimated body mass index is 41.47 kg/m?? as calculated from the following: Height as of 11/24/24: 165.1 cm (65 ). Weight as of this encounter: 113 kg (249 lb 3.2 oz). Physical Exam Ultrasound Impression: See Viewpoint Assessment and Plan Salima Ferreira is a 24 y.o. 26w5d who presents today for Hx preeclampsia Diagnoses and all orders for this visit: 1. History of IUFD (Primary) - [facility]; Future 2. Hx of preeclampsia, prior , currently , second trimester Assessment & Plan: Patient returns today for complicated by history of severe preeclampsia in her previous pregnancies. Most likely she had an intrauterine demise related to preeclampsia in her first and delivered at 35 weeks and her second for severe preeclampsia. Patient notes no complications currently and notes good movement. Blood pressure in our office was 114/52. Ultrasound today demonstrates a normally grown fetus with no abnormality seen. Amniotic fluid volume and umbilical artery Dopplers were normal. Cervical length appeared normal. Fetus was very active. Patient appears to be doing very well at the current time. She has no signs or symptoms of preeclampsia. We counseled her extensively over the signs and symptoms of preeclampsia and she will contact her provider immediately if she notices any of the signs or symptoms. Additionally we will rescan the patient again in 4 weeks time given her significant history of preeclampsia. Patient was counseled extensively regarding movement and will contact her provider immediately if she notices any decreased movement. Orders: - [facility]; Future 3. 26 weeks gestation of - [facility]; Future 4. Morbid obesity with BMI of 40.0-44.9, adult - [facility]; Future Follow Up Return in about 4 weeks (around 02/08/2025). I spent 10 minutes caring for the patient on the [...] other procedures such as amniocentesis or [facility]. David Helms MD Maternal Medicine, [facility] [place] 01/11/2025 documented in this encounter Plan of Treatment Upcoming Encounters Date Type Department Care Team (Late st Contact Info) Description 02/08/2025 3:00 PM EST Office Visit [facility]NAL MEDIC[facility] [facility] [address] [place] [address] 02/08/2025 3:00 PM EST Appointment [facility] [address] [place] [address] documented as of this encounter Visit Diagnoses Diagnosis History of IUFD- Primary Hx of preeclampsia, prior , currently , second trimester 26 weeks gestation of Morbid obesity with BMI of 40.0-44.9, adult documented in this encounter Care Teams Produce Inspector Relationship Specialty Start Date End Date Provider, [place] [address] PCP - General 06/10/22 documented as of this encounter
--- OUTSIDE RECORDS SUMMARY | 2025-01-27 12:48 | XMS_ITS | Encounter Summary ---
Author Organization [facility] Address [address] [place] [address] Care Team Providers Care Door To Door Lead Generation Name Role Phone Provider, No Known Primary Care Provider Unavail able Encounter Details Date Type Department Care Team (Latest Contact Info) Description 01/11/2025 Travel Social History Tobacco Use Types Packs/Day [...] Upcoming Encounters Date Type Department Care Team ( st Contact Info) Description 02/08/2025 3:00 PM EST Office Visit [facility] MATERNAL MEDICINE [address] [place] [address] 02/08/2025 3:00 PM EST [facility]ointment [facility] [address] [place] [address] documented as of this encounter Visit Diagnoses Not on filedocumented in this encounter Care Teams Door To Door Lead Generation Relationship Specialty Start Date End Date Provider, [place] [address] PCP - General 06/10/22 documented as of this encounter
--- OUTSIDE RECORDS SUMMARY | 2025-01-27 12:49 | XMS_ITS | Encounter Summary ---
Author Organization [facility] Address [address] [place] [address] Care Team Providers Care Manager Personal Name Role Phone Provider, No Known Primary Care Provider Unavail able Encounter Details Date Type Department Care Team (Latest Contact Info) Description 12/09/2024 Travel Social History Tobacco Use Types Packs/Day [...] Encounters Date Type Department Care Team ( Contact Info) Description 02/08/2025 3:00 PM EST Office Visit [facility] MATERNAL MEDICINE [address] [place] [address] 02/08/2025 3:00 PM EST Appointment [facility] [address] [place] [address] documented as of this encounter Visit Diagnoses Not on filedocumented in this encounter Care Teams Manager Personal Relationship Specialty Start Date End Date Provider, [place] [address] PCP - General 06/10/22 documented as of this encounter
--- OUTSIDE RECORDS SUMMARY | 2025-01-27 12:49 | XMS_ITS | Clinical Summary ---
Author Organization [facility] Address [address] [place] [address] Care Team Providers Care Neuropsychiatric Aide Name Role Phone Provider, No Known Primary Care Provider Unavail able Allergies No known active allergies Medications Magnesium Oxide -Mg Supplement 400 (240 Mg) MG tablet 3 Active ondansetron ODT (ZOFRAN-ODT) 4 MG disintegrating tablet 3 Active aspirin 81 MG EC tabletIndications:H x of preeclampsia, prior , currently , second trimester Take 2 tablets by mouth Daily. 60 tablet 6 5 Active promethazine (PHENERGAN) 12.5 MG tablet 5 Active Active Problems Problem Noted Date Diagnosed Date 01/11/2025 Morbid obesity with BMI of 40.0-44.9, adult 12/0 03/2024 Postural hypotension 04/22/2023 Hx of preeclampsia, prior pr egnancy, currently , second trimester 11/20/2022 Assessment & Plan (01/11/2025 3:25 PM EST): Patient returns today for complicated by history [...] notices any decreased movement. Assessment & Plan (12/09/2024 1:51 PM EDT): - Both prior pregnancies complicated by severe [...] growth ultrasound surveillance in the third trimester Assessment & Plan (01/01/2023 8:09 AM EST): [...] for detailed anatomic survey History of IUFD 06/10/2022 Assessment & Plan (12/09/2024 1:13 PM EDT): - Thought to be secondary to severe, early-onset preeclampsia - Genetic analysis WNL (46, XX) - Placental pathology report reviewed and significant for maternal vascular malperfusion; but no lesions with high recurrence risk or lesions with known interventions to lower risk Estimated Date of Delivery Comme nts Yes 04/14/2025 Based on Patient Reported Resolved Problems Problem Noted Date Diagnosed Date Resolved Date Dizziness 11/25/2024 12/09/2024 Third trimester 03/25/2023 Assessment & Plan (04/02/2023 [...] demise and history of severe preeclampsia. 01/01/2023 12/09/2024 Abnormal genetic test during 01/01/2023 12/09/2024 Assessment & Plan (04/02/2023 8:30 AM EST): [...] sending cord bloods for karyotype at delivery. History of IUFD 11/20/2022 12/09/2024 Assessment & Plan (04/02/2023 8:27 AM EST): [...] for repeat growth ultrasound in 4 weeks Encounters Date Type Department Care Team Description 01/11/2025 2:45 PM EST Office Visit [facility] MATERNAL MEDICINE [address] [facility] [address] [place] [address] David Helms MD History of IUFD (Primary Dx); Hx of preeclampsia, prior , currently , second trimester; 26 weeks gestation of ; Morbid obesity with BMI of 40.0-44.9, adult 01/11/2025 2:36 PM EST - 01/11/2025 11:59 PM EST Hospital [facility] [address] [place] [address] Chely Mccarthy DO Discharge Disposition: Home or Self Care 01/11/2025 Travel 12/09/2024 12:30 PM EDT Office Visit [facility] MATERNAL MEDICINE [address] [facility] [address] [place] [address] Kyler Torrez MD Hx of preeclampsia, prior , currently , second trimester (Primary Dx); History of IUFD 12/09/2024 12:00 PM EDT - 12/09/2024 11:59 PM EDT Hospital Encounter [facility] [address] [place] [address] Chely Mccarthy DO Hx of preeclampsia, prior , currently , first trimester; IUFD at 20 weeks or more of gestation; History of delivery, currently ; Obesity in , antepartum Discharge Disposition: Home or Self Care 12/09/2024 Travel 11/24/2024 9:22 PM EDT - 11/25/2024 5:35 AM EDT Hospital Encounter [facility] [address] [place] [address] Chantell Hung MD Discharge Disposition: Home or Self Care 11/24/2024 Travel from Last 3 Months Social History [...] Pressure 114/52 01/11/2025 2:46 PM EST Pulse 98 11/24/2024 9:55 PM EDT Temperature 36.7 C (98.1 F) 03/25/2023 5:56 PM EST Respiratory Rate 18 11/24/2024 9:54 PM EDT Oxygen Saturation 98% 11/24/2024 9:55 PM EDT Inhaled Oxygen Concentration - - Weight 113 kg (249 lb 3.2 oz) 01/11/2025 2:46 PM EST Height 165.1 cm (5' 5 ) 11/24/2024 9:51 PM EDT Body Mass Index 41.47 11/24/2024 9:51 PM EDT Plan of Treatment Upcoming Encounters Date Type Department Care Team (Late st Contact Info) Description 02/08/2025 3:00 PM EST Office Visit [facility] MATERNAL MEDICINE [address] [place] [address] 02/08/2025 3:00 PM EST Appointment [facility] [address] [place] [address] Health Maintenance Due Date Last Done Comments [...] Procedure Name Priority Date/Time Associated Diagnosis Comments [facility] Routine 01/11/2025 3:48 PM EST Hx of preeclampsia, prior , currently , second trimester [facility] Routine 12/09/2024 1:31 PM EDT Hx of preeclampsia, prior , currently , first trimester IUFD at 20 weeks or more of gestation History of delivery, currently Obesity in , antepartum CHLAMYDIA TRACHOMATIS, NEISSERIA GONORRHOEAE, TRICHOMONAS VAGINALIS, PCR Routine 10/14/2024 2:26 PM EDT 14 weeks gestation of Second trimester HEPATITIS C ANTIBODY Routine 10/14/2024 2:26 PM EDT 14 weeks gestation of Second trimester from Last 3 Months or Most Recently Relevant to Health Maintenance Results * [facility] (01/11/2025 3:48 PM EST) Only the most recent of2 resultswithin the time period is included. Anatomical Region Laterality Modality Ultrasound 01/11/2025 2:51 PM EST Narrative 01/12/2025 6:23 AM EST PAT NAME: SALIMA DARDEN [facility] REC#: [id number] DA: [id number] PAT GEND: F PAT TYPE: O EXAM TRAVIS: [id number] REF PHYS CHELY MCCARTHY Comparison Studies The [...] EFW (oz) 1 oz EFW by: Hadlock ([id number]) Extended Cav. septi pel. tr 5.6 mm Payroll Secretary 4.0 mm CM 5.4 mm 19% Nicolaides [...] SVC: normal IVC: normal 3-vessel view: Normal 3-slfoka-jxczjwj view: normal Cord insertion: Normal Stomach: Appears [...] here in 4 weeks. Coding ====== Description: 09013-39 Follow Up Solar Systems Designer: Kathy Chacon RDMS Physician: Graham Helms MD, FACOG Electronically signed by: Graham Helms MD, FACOG at: 06:23 Procedure Note David Helms MD - 01/12/2025 PAT NAME: SALIMA DARDEN MED REC#: [id number] DA: 2000 PAT GEND: F PAT TYPE: O EXAM TRAVIS: [id number] REF PHYS CHELY MCCARTHY Comparison Studies The findings of this study are compared to the prior ultrasound studydated 12/09/2024 Patient Status Outpatient Indication ======== Hx IUFD at 26 weeks, hx preeclampsia, hx PTD, MO Maternal Assessment Umfzzx756 cm Height (ft)5 ft Height (in)5 in Dzmoac840 kg Weight (lb)249 lb BMI41.51 kg/m Method ======= Transabdominal ultrasound examination. View: Adequate view ========= Rosado . Number of fetuses: 1 Dating ====== GA by prior [id number] w + 5 d TANYA by prior [...] GA26 w + 5 d Assigned TANYA:04/14/2025 efmbst301 d Biometry Standard BPD65.8 mm 26w 4d 33% Hadlock OFD87.3 mm 28w 1d 89% Rhiannon HC248.0 mm 26w 6d 30% Hadlock Cerebellum tr29.6 mm 25w 6d 42% Hill AC219.4 mm 26w 3d 31% Hadlock Femur49.2 mm 26w 4d 31% Hadlock Yiwcmud58.9 mm 26w 5d 41% Rhiannon HC / AC1.13 BNP802 g 26w 2d 31% Hadlock EFW (lb)2 lb EFW (oz)1 oz EFW by:Hadlock ([id number]) Extended Cav. septi pel. tr5.6 mm Vp4.0 mm CM5.4 mm 19% Nicolaides Nasal bone9.1 mm Head / Face / Neck Cephalic index0.75 17% Nicolaides Extremities / Bony Struc FL / BPD0.75 FL / HC0.20 FL / AC0.22 Other Structures EAL195 bpm General Evaluation Cardiac activity present. FHR [...] Aortic arch view:Normal SVC:normal IVC:normal 3-vessel view:Normal 9-whzvcf-skcwuik view:normal Cord insertion:Normal Stomach:Appears normal Kidneys:Appears normal Bladder:Appears normal Gender:female Wants to know gender:yes Maternal Structures Uterus / Cervix Cervical .2 mm Doppler Arterial Umbilical A PI1.17 73% [...] scheduled here in 4 weeks. Coding ====== Description:36802-62 Follow Up Solar Systems Designer: Kathy Chacon RDMS Physician: Graham Helms MD, FACOG Electronically signed by: Graham Helms MD, FACOG at: 06:23 Kyler Torrez MD [facility] US ORDERABLES Final Res ult * Chlamydia trachomatis, Neisseria gonorrhoeae, Trichomonas vaginalis, PCR - Urine, Urine, Clean Catch (10/14/2024 2:26 PM EDT) Chlamydia trachomatis, TNOIA Negative Negative 10/18/2024 6:08 AM EDT [facility] Gonococcus by TONIA Negative Negative 10/18/2024 6:08 AM EDT [facility] Trichomonas vaginosis Negative Negative 10/18/2024 6:08 AM EDT [facility] Urine Urine specimen obtained by clean catch procedure / Unknown Collection / Unknown 10/14/2024 2:26 PM EDT 10/14/2024 2:30 PM EDT Narrative [facility] - 10/18/2024 6:08 AM EDT Performed at: [facility] [place] [id number] Bridge Inspector: Roxanne Walter MD, Phone: [phone] us Paullogan Scherer Bria VU MICROBIOLOGY - GENERAL ORDERA BLES Final Result [facility] [address] [place] [address], [place] [phone] * Hepatitis C Antibody (10/14/2024 2:26 PM EDT) Hepatitis C Ab Non-Reacti ve Non-Reacti ve 10/14/2024 7:24 PM EDT [facility] Blood Venipuncture / Unknown 10/14/2024 2:26 PM EDT 10/14/2024 2:30 PM EDT us Nyasia Fraser CNM LAB BLOOD ORDERABLES Final Re sult Performing Organization Address City/[facility]/ZIP Co de Phone Number [facility]
[address] [place] [address], from Last 3 Months or Most Recently Relevant to Health Maintenance [facility] Direct[facility] * CPR (Attempt to Resuscitate) [...] Release to patient: Routine Release Care Teams Neuropsychiatric Aide Relationship Specialty Start Date End Date Provider, [place] [address] PCP - General 06/10/22
[2025-01-27 13:58] LABS: Hematocrit 32.0 % (37.0-47.0); Hemoglobin 9.8 g/dL (12.2-16.2); Immature Granulocytes % 0.4 %; Mean Corpuscular HGB Conc 30.6 g/dL (31.8-35.4); Mean Corpuscular Hemoglobin 26.0 pg (27.0-31.2); Mean Corpuscular Volume 84.9 fl (81-99); Nucleated Red Blood Cells % 0 %; Platelet Count 257 K/mm3 (142-424); Red Blood Count 3.77 M/mm3 (4.20-5.40); Red Cell Distribution Width-SD 47.6 fL; White Blood Count 11.8 K/mm3 (4.8-10.8)
[2025-01-27 14:16] LABS: Glucose 1 Hour 109 mg/dL (74-100)
[2025-01-28 08:36] LABS: RPR W/RFX Titers Nonreactive (Nonreactive)
== END 2025-01-27 23:59 | disposition home or self-care (01) ==
LOC: LAB 12:35
PROVIDERS: PCP Family Medicine; Visit Provider Obstetrics & Gynecology
DX: O99.210 Obesity complicating pregnancy, unspecified trimester (principal); O09.299 Supervision of pregnancy with other poor reproductive or obstetric history, unspecified trimester; Z3A.00 Weeks of gestation of pregnancy not specified
CPT/HCPCS: 36415; 82947; 85025; 86592